=== PATIENT | female | born 1930 | race Hispanic/Latino ===

== ENCOUNTER 2017-01-24 21:53 | Inpatient (IN) | payer MEDICARE, OTHER ==
[2017-01-24 22:11] VITALS: BMI 27.4
--- NOTE | 2017-01-24 22:56 | ED PDOC ---
Arrival/HPI - General Chief Complaint: GI Problem Time Seen by Provider: 01/24/17 21:54 Historian: Patient - History of Present Illness Narrative History of Present Illness (Text): 01/24/17 22:51 Vania Mitchell is a 86 year old female, with a history of CAD, hypertension , TIA, cholecystectomy,pancreatectomy, hysterectomy, and appendectomy, presents to the emergency department complaining of constipation/abdominal discomfort for past few days. Patient states she also feels "backed up" with some occasional heartburn discomfort. States she has not taken her Colase for past few days. Denies fever, chills, headache, dizziness, chest pain, shortness of breath, nausea, vomiting, diarrhea, urinary symptoms, or any other complaints at this time. Time/Duration: < week Symptom Course: Unchanged Severity Level: Mild Activities at Onset: Light Past Medical History - Provider Review Nursing Documentation Reviewed: Yes - Infectious Disease Hx of Infectious Diseases: None - Tetanus Immunization Tetanus Immunization: Unknown - Cardiac Hx Cardiac Disorders: Yes Hx Hypertension: Yes Other/Comment: 1 Coronary stent - Pulmonary Hx Respiratory Disorders: No (SINUSITIS) - Neurological Hx Neurological Disorder: Yes Hx Transient Ischemic Attacks (TIA): Yes - HEENT Hx HEENT Disorder: Yes Hx Cataracts: Yes (WITH BILATERAL SURGERY) - Renal Hx Renal Disorder: Yes Hx Kidney Stones: Yes (RIGHT SIDE) - Endocrine/Metabolic Hx Endocrine Disorders: No - Hematological/Oncological Hx Blood Disorders: No - Integumentary Hx Dermatological Disorder: No - Musculoskeletal/Rheumatological Hx Musculoskeletal Disorders: Yes Hx Arthritis: Yes - Gastrointestinal Hx 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 Pancreatic tumor removal - Anesthesia Hx Anesthesia: Yes Hx Anesthesia Reactions: No Hx Malignant Hyperthermia: No - Suicidal Assessment Feels Threatened In Home Enviroment: No Family/Social History - Physician Review Nursing Documentation Reviewed: Yes Family/Social History: No Known Family HX Smoking Status: Former Smoker Hx Alcohol Use: No Hx Substance Use: No Hx Substance Use Treatment: No Allergies/Home Meds Allergies/Adverse Reactions: Allergies lactose Allergy (Verified 04/07/16 10:39) VOMITING Home Medications: Home Meds Medication Instructions Recorded Confirmed Aspirin [Ecotrin] 81 mg PO DAILY 01/24/17 01/25/17 Atorvastatin [Lipitor] 40 mg PO DAILY 01/24/17 01/25/17 Bismuth Subsalicylate [Peptic 262 mg PO PRN PRN 01/24/17 01/25/17 Relief] Clopidogrel [Plavix] 75 mg PO DAILY 01/24/17 01/25/17 Docusate Sodium/Sennosides A 1 tab PO PRN PRN 01/24/17 01/25/17 [Senokot S 50 MG-8.6 MG] Gabapentin [Neurontin] 1,200 mg PO HS 01/24/17 01/25/17 Levocetirizine Dihydrochloride 5 mg PO DAILY 01/24/17 01/25/17 [Xyzal] Losartan/Hydrochlorothiazide 1 tab PO DAILY 01/24/17 01/25/17 [Losartan Potassium-Hydrochlorothiazide 12.5 M] Metoprolol Tartrate 25 mg PO BID 01/24/17 01/25/17 Paroxetine HCl [Paroxetine] 40 mg PO DAILY 01/24/17 01/25/17 Simethicone [Mytab Gas] 80 mg PO PRN PRN 01/24/17 01/25/17 amLODIPine [Norvasc] 10 mg PO DAILY 01/24/17 01/25/17 Review of Systems - Physician Review All systems were reviewed & negative as marked: Yes - Review of Systems Constitutional: Normal. absent: Fatigue, Fevers Respiratory: Normal. absent: SOB, Cough Cardiovascular: Normal. absent: Chest Pain Gastrointestinal: Constipation. absent: Diarrhea, Nausea, Vomiting, Appetite Changes Genitourinary Female: Normal Neurological: Normal. absent: Headache, Dizziness Psychiatric: Normal Physical Exam Vital Signs Reviewed: Yes Vital Signs Temp Pulse Resp BP Pulse Ox 01/25/17 02:06 98.1 F 77 16 143/63 96 01/25/17 00:30 76 16 156/70 H 99 01/25/17 00:19 98.0 F 77 16 152/84 H 99 01/24/17 22:12 98.1 F 80 16 169/83 H 95 Temperature: Afebrile Blood Pressure: Hypertensive Pulse: Regular Respiratory Rate: Normal Appearance: Positive for: Well-Appearing, Non-Toxic, Comfortable Pain Distress: None Mental Status: Positive for: Alert and Oriented X 3 - Systems Exam Head: Present: Atraumatic, Normocephalic Pupils: Present: PERRL Extroacular Muscles: Present: EOMI Conjunctiva: Present: Normal Mouth: Present: Moist Mucous Membranes Cardiovascular: Present: Regular Rate and Rhythm, Normal S1, S2. No: Murmurs Abdomen: Present: Normal Bowel Sounds. No: Tenderness, Distention, Peritoneal Signs, Rebound, Guarding Upper Extremity: Present: Normal Inspection. No: Cyanosis, Edema Lower Extremity: Present: Normal Inspection. No: Edema Neurological: Present: GCS=15, CN II-XII Intact, Speech Normal Skin: Present: Warm, Dry, Normal Color. No: Rashes Psychiatric: Present: Alert, Oriented x 3, Normal Insight, Normal Concentration Medical Decision Making ED Course and Treatment: 01/24/17 22:58 Impression: A 86 year old female who presents to the emergency department complaining of constipation for past few days. Plan: -- EKG -- Labs, lipase -- Reassess and disposition Progress Notes: 01/24/17 23:37 EKG interpreted by me: NSR @ 89 bpm. Right bundle branch block. Left axis deviation. 01/25/17 02:49 CT abdomen pelvis results reviewed: IMPRESSION: suspicious for neoplasm versus inflammatory pathology of the cecum. No evidence of obstruction. Fluid content in normal caliber small bowel, focal wall thickening of the cecum. The appendix is not visualized with certainty. Clinical correlation, noting the presence of inflammatory changes of the cecum to proximal ascending colon. 5 cm cystic finding in the tail of the pancreas with some calcifications of the rim, noting that there is no evidence of acute pancreatitis at this time this could reflect sequelae of a previous episode of pancreatitis or alternatively a neoplasm. The absence of intravenous contrast greatly limits evaluation of the parenchymal organs. The paucity of oral contrast limits evaluation of the gastrointestinal tract. 01/25/17 03:19 Case discussed with who is aware and agrees with the plan to admit patient to Med/Surg for abdominal pain. Accepts patient under 's service with on GI consult. - Lab Interpretations Lab Results: 01/24/17 23:45 01/24/17 23:45 Lab Results 01/24/17 23:45: WBC 16.6 H D, RBC 4.47, Hgb 13.2, Hct 38.2, MCV 85.5, MCH 29.5, MCHC 34.6, RDW 13.9, Plt Count 261, MPV 9.9 01/24/17 23:45: Sodium 136, Potassium 3.6, Chloride 102, Carbon Dioxide 26, Anion Gap 12, BUN 16, Creatinine 0.5, Est GFR ( Amer) > 60, Est GFR (Non- Af Amer) > 60, Random Glucose 127 H, Calcium 9.5, Total Bilirubin 0.6, AST 44 H , ALT 31, Alkaline Phosphatase 104, Lactate Dehydrogenase 594, Total Creatine Kinase 54, Troponin I < 0.01, Total Protein 7.6, Albumin 4.3, Globulin 3.3, Albumin/Globulin Ratio 1.3, Lipase 112 I have reviewed the lab results: Yes - RAD Interpretation Narrative RAD Interpretations (Text): EXAM: CT Abdomen and Pelvis Without Intravenous Contrast FINDINGS: Lower thorax: Lung bases with changes of advanced centrilobular emphysema, no findings of acute infection. Heart. Calcifications in keeping with coronary artery disease, calcifications of the aortic valve leaflets. Air in the esophagus in keeping with reflux. Moderate hiatus hernia. ABDOMEN: Liver: Unremarkable. Gallbladder and bile ducts: Cholecystectomy clips. The common bile duct is poorly seen related to extensive artifacts from cholecystectomy clips. Pancreas: There is a cystic lesion associated with the pancreas, although there are no previous cross sectional studies available a report of a study of ultrasound of the abdomen December 2014 did not described a pancreatic lesion. The finding measures 5.4 cm, associated with the pancreatic tail, simple fluid attenuation. Calcification of the wall. This could reflect sequelae of pancreatitis and other including neoplasm not excluded. Consider dedicated evaluation. additional focal hypoattenuation series 2 image 60 suggested in the head of the pancreas, evaluation of the pancreatic duct is limited on this noncontrast study. Spleen: Unremarkable. No splenomegaly. Adrenals: Mild thickening medial limb right adrenal gland. Kidneys and ureters: Calcifications associated with the bilateral kidneys, noting that these are not absolutely defined regarding whether they are in the collecting system versus vascular. No hydronephrosis. Stomach and bowel: Oral contrast is seen in the rectum and sigmoid. There is no pathologic dilatation to suggest bowel obstruction. However, as seen for example coronal image 60, axial image 85, there is suspicion for some focal thickening of the cecum with adjacent inflammatory or other cause of stranding. Neoplasm versus inflammatory pathology are considerations. Noted that there is an air-fluid level and some dependent high attenuation possibly oral contrast in this area. The bowel otherwise is of note for minimally increased fluid content in normal caliber small bowel. There are no findings of acute diverticulitis. No abdominal wall hernias containing bowel, multiple fat containing hernias. Appendix: The appendix is not visualized with certainty. PELVIS: Bladder: Bladder is partly collapsed limiting evaluation. No stones. Reproductive: Uterus is not visualized in keeping with hysterectomy. ABDOMEN and PELVIS: Intraperitoneal space: No free air. No significant fluid collection. Bones/joints: Severe diffuse osteopenia and degenerative spine changes. Status post internal fixation left femur. Incidentally noted sacralization of vertebra L5. No acute fracture. No dislocation. Soft tissues: Areas of fat necrosis in the anterior abdominal wall.No abdominal wall hernias containing bowel, multiple fat containing hernias. Vasculature: Extensive atherosclerotic calcifications. No abdominal aortic aneurysm. Lymph nodes: Unremarkable. No enlarged lymph nodes. IMPRESSION: suspicious for neoplasm versus inflammatory pathology of the cecum. No evidence of obstruction. Fluid content in normal caliber small bowel, focal wall thickening of the cecum. The appendix is not visualized with certainty. Clinical correlation, noting the presence of inflammatory changes of the cecum to proximal ascending colon. 5 cm cystic finding in the tail of the pancreas with some calcifications of the rim, noting that there is no evidence of acute pancreatitis at this time this could reflect sequelae of a previous episode of pancreatitis or alternatively a neoplasm. The absence of intravenous contrast greatly limits evaluation of the parenchymal organs. The paucity of oral contrast limits evaluation of the gastrointestinal tract. Radiology Orders: 01/25/17 00:51 ABD & PELVIS W/O PO OR IV CONT [CT] Stat Screw Down: Radiologist - Medication Orders Current Medication Orders: Metronidazole (Flagyl) 500 mg in 100 mls @ 100 mls/hr IVPB STAT STA PRN Reason: Protocol Stop: 01/25/17 03:34 Discontinued Medications Ceftriaxone Sodium (Rocephin 1 Gram Ivpb) 1 gm in 100 mls @ 200 mls/hr IV ONCE STA PRN Reason: Protocol Stop: 01/25/17 03:02 Last Admin: 01/25/17 03:17 Dose: 200 mls/hr Magnesium Citrate (Citrate Of Mag) 300 ml PO ONCE ONE Stop: 01/24/17 23:04 Last Admin: 01/24/17 23:55 Dose: 300 ml Ondansetron HCl (Zofran Inj) 4 mg IVP ONCE ONE Stop: 01/25/17 02:37 Last Admin: 01/25/17 03:17 Dose: 4 mg Polyethylene Glycol (Miralax) 17 gm PO STAT STA Stop: 01/24/17 23:04 Last Admin: 01/25/17 01:31 Dose: Not Given Non-Admin Reason: Patient Refused - Scribe Statement The provider has reviewed the documentation as recorded by the Katia Bellamy Provider Attestation: All medical record entries made by the Katia were at my direction and personally dictated by me. I have reviewed the chart and agree that the record accurately reflects my personal performance of the history, physical exam, medical decision making, and the department course for this patient. I have also personally directed, reviewed, and agree with the discharge instructions and disposition. Disposition/Present on Arrival - Present on Arrival Any Indicators Present on Arrival: No History of DVT/PE: No History of Uncontrolled Diabetes: No Urinary Catheter: No History of Decub. Ulcer: No History Surgical Site Infection Following: None - Disposition Have Diagnosis and Disposition been Completed?: Yes Diagnosis: Abdominal pain, Leukocytosis Disposition: HOSPITALIZED Disposition Time: 03:18 Patient Plan: Admission Patient Problems: Current Active Problems Problem Status Onset Abdominal pain Acute Leukocytosis Acute Condition: STABLE
[2017-01-24] MEDS ORDERED: Magnesium Citrate Oral SOL (300 ml) PO ONE (23:03)
[2017-01-24 23:55] LABS: HEMATOCRIT 38.2 % (36.0-48.0); MEAN CELL VOLUME 85.5 fL (80.0-105.0); MEAN CORPUSCULAR HEMOGLOBIN 29.5 pg (25.0-35.0); MEAN CORPUSCULAR HGB CONC 34.6 g/dl (31.0-37.0); MEAN PLATELET VOLUME 9.9 fl (7.0-11.0); RED CELL DISTRIBUTION WIDTH 13.9 % (11.5-14.5); WHITE BLOOD COUNT 16.6 10^3/ul (4.5-11.0)
[2017-01-24] MEDS: POLYETHYLENE GLYCOL 3350 17 GM/Dose PACKET PO STA (23:56)
[2017-01-25 00:40] LABS: ALB/GLOB RATIO 1.3 (1.1-1.8); ALKALINE PHOSPHATASE 104 U/L (38-133); ALT/SGPT 31 U/L (7-56); AST/SGOT 44 U/L (15-39); BILIRUBIN,TOTAL 0.6 mg/dL (0.2-1.3); BLOOD UREA NITROGEN 16 mg/dL (7-21); CALCIUM 9.5 mg/dL (8.4-10.5); CARBON DIOXIDE 26 mmol/L (21-33); CHLORIDE 102 mmol/L (98-107); GFR AFRICAN-AMERICAN > 60; GLUCOSE,RANDOM 127 mg/dL (70-110); LIPASE 112 U/L (23-300); POTASSIUM 3.6 mmol/L (3.6-5.0); SODIUM 136 mmol/L (132-148); TOTAL PROTEIN 7.6 g/dL (5.8-8.3)
[2017-01-25 00:52] LABS: TROPONIN I < 0.01 ng/mL
[2017-01-25] MEDS: POLYETHYLENE GLYCOL 3350 17 GM/Dose PACKET PO STA (01:31)
--- NOTE | 2017-01-25 02:22 | CT ---
EXAM: CT Abdomen and Pelvis Without Intravenous Contrast CLINICAL HISTORY: 86 years old, female; Pain; Abdominal pain; Generalized TECHNIQUE: Axial computed tomography images of the abdomen and pelvis without intravenous contrast. This CT exam was performed using one or more of the following dose reduction techniques: automated exposure control, adjustment of the mA and/or kV according to patient size, and/or use of iterative reconstruction technique. Coronal and sagittal reformatted images were created and reviewed. EXAM DATE/TIME: Exam ordered 01/25/2017 12:51 AM COMPARISON: CR - HIP W/WO PELVIS 2-3 VIEWS LT 04/07/2016 11:58:07 AM FINDINGS: Lower thorax: Lung bases with changes of advanced centrilobular emphysema, no findings of acute infection. Heart. Calcifications in keeping with coronary artery disease, calcifications of the aortic valve leaflets. Air in the esophagus in keeping with reflux. Moderate hiatus hernia. ABDOMEN: Liver: Unremarkable. Gallbladder and bile ducts: Cholecystectomy clips. The common bile duct is poorly seen related to extensive artifacts from cholecystectomy clips. Pancreas: There is a cystic lesion associated with the pancreas, although there are no previous cross sectional studies available a report of a study of ultrasound of the abdomen December 2014 did not described a pancreatic lesion. The finding measures 5.4 cm, associated with the pancreatic tail, simple fluid attenuation. Calcification of the wall. This could reflect sequelae of pancreatitis and other including neoplasm not excluded. Consider dedicated evaluation. additional focal hypoattenuation series 2 image 60 suggested in the head of the pancreas, evaluation of the pancreatic duct is limited on this noncontrast study. Spleen: Unremarkable. No splenomegaly. Adrenals: Mild thickening medial limb right adrenal gland. Kidneys and ureters: Calcifications associated with the bilateral kidneys, noting that these are not absolutely defined regarding whether they are in the collecting system versus vascular. No hydronephrosis. Stomach and bowel: Oral contrast is seen in the rectum and sigmoid. There is no pathologic dilatation to suggest bowel obstruction. However, as seen for example coronal image 60, axial image 85, there is suspicion for some focal thickening of the cecum with adjacent inflammatory or other cause of stranding. Neoplasm versus inflammatory pathology are considerations. Noted that there is an air-fluid level and some dependent high attenuation possibly oral contrast in this area. The bowel otherwise is of note for minimally increased fluid content in normal caliber small bowel. There are no findings of acute diverticulitis. No abdominal wall hernias containing bowel, multiple fat containing hernias. Appendix: The appendix is not visualized with certainty. PELVIS: Bladder: Bladder is partly collapsed limiting evaluation. No stones. Reproductive: Uterus is not visualized in keeping with hysterectomy. ABDOMEN and PELVIS: Intraperitoneal space: No free air. No significant fluid collection. Bones/joints: Severe diffuse osteopenia and degenerative spine changes. Status post internal fixation left femur. Incidentally noted sacralization of vertebra L5. No acute fracture. No dislocation. Soft tissues: Areas of fat necrosis in the anterior abdominal wall.No abdominal wall hernias containing bowel, multiple fat containing hernias. Vasculature: Extensive atherosclerotic calcifications. No abdominal aortic aneurysm. Lymph nodes: Unremarkable. No enlarged lymph nodes. IMPRESSION: suspicious for neoplasm versus inflammatory pathology of the cecum. No evidence of obstruction. Fluid content in normal caliber small bowel, focal wall thickening of the cecum. The appendix is not visualized with certainty. Clinical correlation, noting the presence of inflammatory changes of the cecum to proximal ascending colon. 5 cm cystic finding in the tail of the pancreas with some calcifications of the rim, noting that there is no evidence of acute pancreatitis at this time this could reflect sequelae of a previous episode of pancreatitis or alternatively a neoplasm. The absence of intravenous contrast greatly limits evaluation of the parenchymal organs. The paucity of oral contrast limits evaluation of the gastrointestinal tract.
[2017-01-25] MEDS: cefTRIAXone 1 gm 1 GM/100 ML BAG IV STA ×2 (03:17→04:00)
[2017-01-25] MEDS ORDERED: Sodium Chloride 0.9% 1,000 ML IV STA (03:29)
[2017-01-25] MEDS: metroNIDAZOLE IV 500 mg/100 ml 500 MG/100 ML BAG IVPB STA ×2 (03:59→04:31)
[2017-01-25] MEDS ORDERED: cefTRIAXone 1 gm 1 GM/100 ML BAG IVPB SCH (10:00)
[2017-01-25] MEDS: Cefepime IV 2 gm in NS 2 GM/100 ML BAG IVPB SCH ×3 (10:14→23:09)
--- NOTE | 2017-01-25 10:49 | HP ---
CHIEF COMPLAINT: Abdominal pain and constipation for 2 days. HISTORY OF PRESENT ILLNESS: An 86-year-old female with past medical history of coronary artery disease, hypertension, history of pancreatic neuroendocrine tumor, admitted with complaints of nonspecific abdominal pain, feeling of bloating and constipation for 2 days. She denied any nausea, vomiting at home. She denied any fever, dysuria, flank pain. The patient was evaluated in the Emergency Room and vomited after oral contrast. 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 History of osteoporosis, history of fall, fracture of the left hip. PAST SURGICAL HISTORY: Status post resection of the neuroendocrine tumor in the pancreatic tail in 07/2014. Status post ORIF of left hip 2014, status post cardiac catheterization with stent in LAD 2012. CURRENT MEDICATIONS: Paroxetine 40 mg daily, metoprolol 25 mg twice a day, losartan/hydrochlorothiazide 50/12.5 daily, Colace 1 tablet as needed, amlodipine 10 mg daily, Plavix 75 mg daily and Lipitor 40 mg daily and aspirin once a day. ALLERGIES: THE PATIENT HAS ALLERGY TO LACTOSE with episodes of vomiting, but no known allergies to medication. FAMILY HISTORY: No history of abdominal cancer. SOCIAL HISTORY: The patient has history of smoking. She quit 50 years ago. Denies any alcohol or drug use. The patient is retired. She lives with her nephew. She is ambulatory and independent of activity of daily living at present time. REVIEW OF SYSTEMS: She denies any loss of appetite, weight loss, fever. She denies any sore throat, dysphagia. She denies any recurrent abdominal pain, but she complains of some heartburn. The patient denies any nausea, vomiting. She has chronic constipation. The patient denies any chest pain, palpitation, shortness of breath, cough. The patient denies any flank pain, dysuria, or hematuria. She complains of chronic joint pains, mostly low back and hip and knee pain. She has history of depression and anxiety, but denies any suicidal thoughts or insomnia. PHYSICAL EXAMINATION: VITAL SIGNS: Stable. Temperature 98.1, pulse 77 and regular, blood pressure 143/63, respiratory rate 16, oxygen saturation 96% on room air. GENERAL: She is comfortable in bed, alert, awake, oriented 3 times. HEENT: Head is normocephalic, atraumatic. Oral mucosa is moist. NECK: Supple. LUNGS: Clear to auscultation. HEART: With regular rhythm and rate. ABDOMEN: Soft. There is no localized tenderness on palpation. No rebound, no muscle guarding. Bowel sounds are positive. There are palpable scars in the mid and left upper abdomen. EXTREMITIES: With no edema, cyanosis or clubbing. DIAGNOSTIC TESTS: Leukocytosis with WBC 16.6, hemoglobin 13.2 and hematocrit 38.2, platelet count 261,000. Chemistry with normal electrolytes, normal renal function. Her random glucose was 127. Liver enzymes stable with borderline elevated AST and normal pancreatic enzymes. Troponin level was negative. CT scan of the abdomen and pelvis was significant for thickening of the cecum area suspicious for inflammatory versus neoplasmatic changes. No obstruction. There is also 5 cm cystic lesion in the tail of pancreas. ASSESSMENT: 1. An 86-year-old female with history of pancreatic neuroendocrine tumor removed in 2013, admitted for nonspecific abdominal pain and constipation with abnormal findings on CT of the abdomen localized in cecum area. Must rule out colitis, must rule out malignancy 2. Hypertension. 3. Coronary artery disease. PLAN OF TREATMENT: We will keep patient n.p.o. Continue with IV fluids for now. GI evaluation. We will resume her chronic oral medications for now. Continue metronidazole and Rocephin at present time. Magali Beckham MD cc: [id number] TT: 01/25/2017 10:48:50 tn MTDD
--- NOTE | 2017-01-25 12:42 | CARD ---
APPROVED REPORT EKG Measurement Heart [id number] HI [id number] <Conclusion> Normal sinus rhythm Left axis deviation Right bundle branch block Abnormal ECG
--- NOTE | 2017-01-25 14:30 | CON ---
DATE: 01/25/2017 Seen and examined at the bedside earlier today. REQUEST FOR CONSULT: Abdominal pain, leukocytosis. 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 Did not have a bowel movement x 2 days. The patient is also complaining of hear tburn. Denies any history of NSAID use. Occasionally may take Tums. Was given magnesium citrate in the Emergency Room and has had multiple formed BMs. Did not notice any blood. The patient denies a ny nausea, no vomiting. No complaints of any bleeding per rectum. Denies any weight loss, loss of a ppetite, shortness of breath or chest pain. No complaints of any fever or chills. Her last colonosc opy was in 12/2012, found to have hyperplastic sigmoid polyp. Her last endoscopy was in 05/2014, found to have prepyloric erosions. Gastric biopsies showed intestinal metaplasia, but negative for H. pyl karissa. She did have a CAT scan on admission which was reporting a cystic lesion in the pancreas and a suspicious neoplasm versus inflammatory process in the cecum and also found to have a 5 cm cystic fin ding in the tail of the pancreas with calcification. No evidence of acute pancreatitis. PAST MEDICAL HISTORY: As stated above. Neuroendocrine tumor of the pancreatic tail, coronary artery disease, hyperplastic colon polyp, prepyloric ulcer, hypertension, osteoporosis, hyperlipidemia. PAST SURGICAL HISTORY: She had resection of neuroendocrine tumor on the pancreatic tail, ORIF of lef t hip, cardiac catheterization with stent, last colonoscopy was in 2012, found to have colon polyp. Last endoscopy was 05/2013, prepyloric erosions. Gastric biopsy was positive for intestinal metaplasi a, cholecystectomy. ALLERGIES: LACTOSE. FAMILY HISTORY: Noncontributory at this time. SOCIAL HISTORY: The patient used to smoke in the past. Denies ETOH or alcohol use. MEDICATIONS: Reviewed as per MAR. REVIEW OF SYSTEMS: Systems reviewed with positive findings, see HPI. DIAGNOSTICS: CT scan of abdomen and pelvis is suspicious for neoplasm versus inflammatory pathology in the cecum. No evidence of obstruction. The fluid content normal in caliber, small bowel, focal w all thickening of the cecum. There is a 5 cm cystic finding in the tail of the pancreas with some ca lcifications of rim, noting that there is no evidence of acute pancreatitis at this time. This could reflect sequela of a previous episode of pancreatitis or alternatively a neoplasm. The absence of I V contrast greatly limits evaluation of the parenchymal organs, capacity of the oral contrast limits evaluation of the GI tract. No abdominal hernia. Lymph nodes, no enlarged lymph nodes. Liver unrem arkable. VITAL SIGNS: Temperature 98.7, blood pressure 147/75, pulse rate 80, respirations 18, 95 on nasal ca nnula. LABORATORY DATA: WBC is 16.6, H and H is 13.2 and 38.2, platelets are 261. Chem: Sodium 136, K is 3 .6, BUN 16, creatinine 0.5, total bilirubin is 0.6, AST 44, ALT 31, alkaline phosphatase is 104. LDH 594. Troponin is negative x 1. PHYSICAL EXAMINATION: HEENT: Sclerae are anicteric. NECK: Supple. CARDIAC: S1, S2. LUNGS: Decreased breath sounds. Positive air entry. No rales or wheeze. ABDOMEN: With bowel sounds, soft with positive tenderness to left to right quadrant. No rebound or guarding, and there is a palpable mobile mass noted in mid abdomen near umbilical area. The patient states that that has been there for a year or two and that it has been evaluated and was reported to be benign. EXTREMITIES: No edema. NEUROLOGIC: Awake, alert, and oriented. ASSESSMENT: This is an 86-year-old female with a history of neuroendocrine pancreatic tumor status p ost resection, admitted with complaints of abdominal pain as well as constipation. The patient had C T scan with abnormal findings, reporting either neoplasm or inflammatory process in this area. There is also a 5 cm cystic lesion noted in the tail of the pancreas. Rule out malignancy, rule out colit is. History of colon polyps, heartburn, hypertension, history of coronary artery disease, status pos t cardiac stent. PLAN: We will start on clear liquid diet for now to see if the patient can tolerate this. The patie nt also has leukocytosis. She has been started on IV antibiotics. She is on Flagyl and ceftriaxone as well as cefepime. She is also complaining of heartburn. She is already on Protonix 40 IV daily. The patient reportedly has had multiple bowel movements. We will review CT scan with radiology. De pending if this is a neoplasm or inflammatory process, the patient may benefit from colonoscopic eval uation and perhaps an upper endoscopy. The patient has been complaining of increased heartburn. We will follow the patient with you. The patient is being seen by ID. Thank you for this consult and for allowing us to participate in your patient's care. We will make ce an recommendations based upon patient's clinical course. The patient was seen and case discussed with Dr. Guerrier. Rosanne MICHAEL cc: [id number] TT: 01/25/2017 14:30:17 Confirmation # [id number] Dictation # [id number] pattie
--- NOTE | 2017-01-25 14:57 | CP.PCM.CON ---
History of Present Illness - History of Present Illness History of Present Illness: 86 year old female with PMH of HTN, CAD, history of TIA, S/P cholecystectomy, S/ P 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, S/P hyesterectomy, S/P appendectomy, history of depression and anxiety, breast CA S/P left lumpectomy, bilateral cataract surgery came in to [facility] complaining of constipation and lower abdominal pain for the past 3-4 days, associated with nausea and heartburn. She denies fever or chills, no vomiting, no chest pain, no SOB, no cough or colds, no headache or dizziness, no diarrhea, no dysuria or hematuria. In the ED, CT abdomen and pelvis was done which showed cecal inflammation. Infectious Diseases consult is requested to further evaluate and manage. Review of Systems - Review of Systems All systems: reviewed and no additional remarkable complaints except (as per HPI ) Past Patient History - Infectious Disease Hx of Infectious Diseases: None - Tetanus Immunizations Tetanus Immunization: Unknown - Past Medical History & Family History Past Medical History?: Yes - Past Social History Smoking Status: Former Smoker - CARDIAC Hx Cardiac Disorders: Yes Hx Hypertension: Yes Other/Comment: 1 Coronary stent - PULMONARY Hx Respiratory Disorders: No (SINUSITIS) - NEUROLOGICAL Hx Neurological Disorder: Yes Hx Transient Ischemic Attacks (TIA): Yes - HEENT Hx HEENT Problems: Yes Hx Cataracts: Yes (WITH BILATERAL SURGERY) - RENAL Hx Chronic Kidney Disease: Yes Hx Kidney Stones: Yes (RIGHT SIDE) - ENDOCRINE/METABOLIC Hx Endocrine Disorders: No - HEMATOLOGICAL/ONCOLOGICAL Hx Blood Disorders: No - INTEGUMENTARY Hx Dermatological Problems: No - MUSCULOSKELETAL/RHEUMATOLOGICAL Hx Musculoskeletal Disorders: Yes Hx Arthritis: Yes Hx Falls: Yes - GASTROINTESTINAL Hx 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) - GENITOURINARY/GYNECOLOGICAL Hx Genitourinary Disorders: Yes (incontinent at times post op, starting to use bathroom with assist) - PSYCHIATRIC Hx Psychophysiologic Disorder: Yes Hx Anxiety: Yes Hx Depression: Yes Hx Substance Use: No - SURGICAL HISTORY Hx Hysterectomy: Yes Hx Orthopedic Surgery: Yes Other/Comment: Left breast lumpectomy. Pancreatic tumor removal - ANESTHESIA Hx Anesthesia: Yes Hx Anesthesia Reactions: No Hx Malignant Hyperthermia: No Meds Allergies/Adverse Reactions: Allergies Allergy/AdvReac Type Severity Reaction Status Date / Time lactose Allergy VOMITING Verified 04/07/16 10:39 - Medications Medications: Current Medications Sodium Chloride (Sodium Chloride 0.9%) 1,000 mls @ 100 mls/hr IV .Q10H STA Stop: 01/25/17 13:28 Metronidazole (Flagyl) 500 mg in 100 mls @ 100 mls/hr IVPB Q8 [facility] PRN Reason: Protocol Losartan Potassium (Cozaar) 50 mg PO DAILY [facility] Metoprolol Tartrate (Lopressor) 25 mg PO BID [facility] Physical Exam - Constitutional Appears: Non-toxic, No Acute Distress - Head Exam Head Exam: NORMAL INSPECTION - Neck Exam Neck exam: Negative for: Lymphadenopathy, Meningismus - Respiratory Exam Respiratory Exam: Decreased Breath Sounds - Cardiovascular Exam Cardiovascular Exam: +S1, +S2 - GI/Abdominal Exam GI & Abdominal Exam: Soft, Tenderness (mild, lower quadrants). absent: Distended, Firm, Guarding, Rebound, Rigid Results - Vital Signs Recent Vital Signs: Last Vital Signs Temp 98.7 F 01/25/17 07:30 Pulse 80 01/25/17 07:30 Resp 18 01/25/17 07:30 BP 147/75 01/25/17 07:30 Pulse Ox 95 01/25/17 07:30 - Labs Result Diagrams: 01/24/17 23:45 01/24/17 23:45 Assessment & Plan - Assessment and Plan (Free Text) Plan: Assessment Consider sepsis due to cecal colitis R/O malignancy HTN CAD history of TIA S/P cholecystectomy S/P 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 S/P hysterectomy S/P appendectomy history of depression and anxiety breast CA S/P left lumpectomy bilateral cataract surgery Plan Started patient on Cefepime and Flagyl pending blood cx; follow up GI evaluation and plans
[2017-01-25] MEDS: metroNIDAZOLE IV 500 mg/100 ml 500 MG/100 ML BAG IVPB SCH ×2 (15:13→23:08)
[2017-01-26] MEDS: metroNIDAZOLE IV 500 mg/100 ml 500 MG/100 ML BAG IVPB SCH ×3 (06:56→22:49)
[2017-01-26 07:23] LABS: ALB/GLOB RATIO 1.2 (1.1-1.8); ALKALINE PHOSPHATASE 89 U/L (38-133); ALT/SGPT 28 U/L (7-56); AST/SGOT 38 U/L (15-39); BILIRUBIN,TOTAL 0.9 mg/dL (0.2-1.3); BLOOD UREA NITROGEN 12 mg/dL (7-21); CALCIUM 8.6 mg/dL (8.4-10.5); CARBON DIOXIDE 29 mmol/L (21-33); CHLORIDE 105 mmol/L (98-107); GFR AFRICAN-AMERICAN > 60; GLUCOSE,RANDOM 102 mg/dL (70-110); POTASSIUM 3.6 mmol/L (3.6-5.0); SODIUM 139 mmol/L (132-148); TOTAL PROTEIN 6.4 g/dL (5.8-8.3)
[2017-01-26 07:38] LABS: HEMATOCRIT 35.4 % (36.0-48.0); MEAN CELL VOLUME 88.7 fL (80.0-105.0); MEAN CORPUSCULAR HEMOGLOBIN 29.6 pg (25.0-35.0); MEAN CORPUSCULAR HGB CONC 33.3 g/dl (31.0-37.0); MEAN PLATELET VOLUME 10.7 fl (7.0-11.0); RED CELL DISTRIBUTION WIDTH 14.5 % (11.5-14.5); WHITE BLOOD COUNT 14.4 10^3/ul (4.5-11.0)
[2017-01-26] MEDS: Cefepime IV 2 gm in NS 2 GM/100 ML BAG IVPB SCH ×2 (07:55→16:27)
[2017-01-26] MEDS ORDERED: Gadodiamide 287 MG/ML VIAL (15ML) IV ONE (09:02)
--- NOTE | 2017-01-26 10:00 | CON ---
DATE: 01/25/2017 This patient was seen and evaluated earlier today. This 86-year-old patient is admitted with abdominal discomfort and constipation. CT scan was done in the ER which showed a pancreatic distal body, in the region of the tail, there was a cystic lesion measuring about 5 cm. There was also focal thickening of the cecal area noticed. PHYSICAL EXAMINATION: The patient not in acute distress. No significant tenderness noticed. Mild discomfort on deep palpation of the epigastric and right upper quadrant area; otherwise unremarkable. The patient did have a CAT scan done. The patient had a neuroendocrine tumor resected from the tail of the pancreas in 2013. The patient did have a colonoscopy in 2012. Presently on cefepime and Flagyl. On clear liquid diet. The CT scan was reviewed. The likely cause of this lesion in the pancreatic region could be cystic lesion, could be a fluid collection with a peripheral calcification. The reasonable thing is to do an MRI with contrast to further evaluate. Discussed with the patient at length who agrees. The patient is scheduled for procedure. They will continue the empiric antibiotic therapy and consider elective colonoscopic evaluation. Thank you very much for allowing us to participate in the care of the patient. Stefani Guerrier MD cc: [id number] TT: 01/26/2017 09:59:34 Confirmation # [id number] Dictation # [id number] marcela MARIE
--- NOTE | 2017-01-26 10:39 | PN ---
DATE: 01/26/2017 Seen and examined at the bedside this morning. Denies any episodes of diarrhea. No recent bowel mov ement since yesterday. No complaints of nausea, vomiting or abdominal pain. So far, tolerating the liquid diet. She is pending to go for MRCP today. No acute overnight events. VITAL SIGNS: Temperature 98.6, blood pressure 140/65, pulse 66, respirations 18, 96% on room air. LABORATORIES: WBC is 14.4. This is better. H and H is 11.8 and 35.4. Her sodium 139, K 3.6, BUN 1 2, creatinine is 0.6. Total bilirubin is 0.9, AST 38, ALT 28, alk phos is 89. PHYSICAL EXAMINATION: HEENT: Sclera is anicteric. NECK: Supple. CARDIAC: S1, S2. LUNG SOUNDS: Clear. ABDOMEN: With bowel sounds, soft. No tenderness on palpation. No rebound or guarding. ASSESSMENT: Improving abdominal pain, history of neuroendocrine pancreatic tumor, status post resect ion. The patient status post CT scan with abnormal findings, neoplasm versus inflammatory process in cecum. Also noted to have a 5 cm cystic lesion in the tail of the pancreas. History of colon polyp s, gastroesophageal reflux disease, coronary artery disease, status post cardiac stent, hypertension. PLAN: The patient is going for MRCP this morning. Follow up the results. She is on cefepime, Flagy l. Continue PPI. As per ID. The patient was seen and case discussed with Dr. Guerrier. Rosanne MICHAEL cc: [id number] TT: 01/26/2017 10:38:22 Confirmation # [id number] Dictation # [id number] en
--- NOTE | 2017-01-26 14:33 | MRI ---
MRI abdomen without/with IV contrast MRCP Indication: Pancreatic cystic lesion versus postop collection Technique: Multiplanar, multi sequence magnetic resonance images of the abdomen were obtained without and with the administration of intravenous gadolinium using a multi phase abdomen protocol. Rotating maximum intensity projection images of the biliary system were generated. A total of 1156 images submitted for review Comparison: CT abdomen and pelvis without contrast performed 01/25/17 Findings: Hepatic steatosis. Cholecystectomy. There is no intrahepatic biliary ductal dilatation. Dilated common bile duct measures approximately 13 mm in diameter. Fairly abrupt distal taper of the common bile duct. The pancreatic duct appears within normal limits of caliber. No filling defects are seen in the common bile duct or pancreatic duct. 4.8 cm (cc dimension) by 4.6 cm (transverse dimension) nonenhancing cystic appearing lesion at the level of the pancreatic tail. The spleen and adrenal glands appear unremarkable. The kidneys enhance symmetrically. No hydronephrosis or obstructing calculus identified. No enlarged abdominal lymph nodes are appreciated. Limited views of the inferior thorax appear unremarkable. Impression: Dilated common bile duct with fairly abrupt distal taper; stricture or distal neoplasm must be excluded. Large cystic lesion at the level of the pancreatic tail without evidence of solid component or postcontrast enhancement. Differential diagnosis includes cystic neoplasm versus sequela of prior pancreatitis (dilated side duct radicles or tiny pseudocyst). Hepatic steatosis. Cholecystectomy.
--- NOTE | 2017-01-26 17:03 | PN ---
DATE: 01/26/2017 The patient is feeling better today. She denies any abdominal pain, denies any nausea or vomiting. She is tolerating clear liquids. PHYSICAL EXAMINATION: VITAL SIGNS: Stable. The patient is afebrile. Temperature 98.6, pulse 66, blood pressure 140/65 and respiratory rate 18. GENERAL: The patient is comfortable in bed, alert, awake, oriented. HEENT: Head is normocephalic, atraumatic. Oral mucosa is moist. NECK: Supple. LUNGS: Clear to auscultation. HEART: With regular rhythm. ABDOMEN: Soft. No abdominal tenderness. No muscle guarding. Bowel sounds are positive. EXTREMITIES: With no edema. DIAGNOSTIC TESTS: CBC with WBC 14,000, improved since yesterday, hemoglobin 11.8, hematocrit 35.4. Chemistry with normal electrolytes, normal renal function. Procalcitonin is negative. The patient had MRCP done this morning; the official results are still pending. Her cultures are negative. ASSESSMENT: 1. 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 2. Pancreatic tail lesion, most probably cyst. 3. Hypertension. 4. Coronary artery disease. PLAN OF TREATMENT: Will continue IV antibiotics, Flagyl and Zosyn. Continue clear liquid diet. Will advance diet if the patient is stable. Follow up MRCP. Magali Beckham MD cc: [id number] TT: 01/26/2017 17:03:01 Confirmation # [id number] Dictation # [id number] marcela MARIE
--- NOTE | 2017-01-26 18:12 | CP.PCM.PN ---
Subjective - Date & Time of Evaluation Date of Evaluation: 01/26/17 Time of Evaluation: 11:40 - Subjective Subjective: Less abdominal pain, no nausea or vomiting, no diarrhea, no fevers overnight. Objective - Vital Signs/Intake and Output Vital Signs (last 24 hours): Temp Pulse Resp BP Pulse Ox 98.6 F 66 18 140/65 96 01/26/17 07:30 01/26/17 07:30 01/26/17 07:30 01/26/17 07:30 01/26/17 07:30 Intake and Output: 01/26/17 01/26/17 06:59 18:59 Intake Total 780 Balance 780 - Medications Medications: Current Medications Amlodipine Besylate (Norvasc) 5 mg PO DAILY [facility] Last Admin: 01/25/17 10:11 Dose: 5 mg Metronidazole (Flagyl) 500 mg in 100 mls @ 100 mls/hr IVPB Q8 [facility] PRN Reason: Protocol Last Admin: 01/26/17 06:56 Dose: 100 mls/hr Cefepime HCl (Maxipime 2gm) 2 gm in 100 mls @ 100 mls/hr IVPB Q8 [facility] PRN Reason: Protocol Stop: 01/30/17 09:31 Last Admin: 01/25/17 23:09 Dose: 100 mls/hr Losartan Potassium (Cozaar) 50 mg PO DAILY [facility] Last Admin: 01/25/17 10:11 Dose: 50 mg Metoprolol Tartrate (Lopressor) 25 mg PO BID [facility] Last Admin: 01/25/17 17:18 Dose: 25 mg Pantoprazole Sodium (Protonix Inj) 40 mg IVP DAILY [facility] Last Admin: 01/25/17 10:13 Dose: 40 mg Paroxetine HCl (Paxil) 40 mg PO DAILY [facility] Last Admin: 01/25/17 10:11 Dose: 40 mg - Labs Labs: 01/26/17 06:30 01/26/17 06:30 - Constitutional Appears: Non-toxic, No Acute Distress - Head Exam Head Exam: NORMAL INSPECTION - ENT Exam ENT Exam: Mucous Membranes Moist - Neck Exam Neck Exam: absent: Lymphadenopathy, Meningismus - Respiratory Exam Respiratory Exam: Decreased Breath Sounds - Cardiovascular Exam Cardiovascular Exam: +S1, +S2 - GI/Abdominal Exam GI & Abdominal Exam: Soft. absent: Tenderness Assessment and Plan - Assessment and Plan (Free Text) Plan: Assessment Consider sepsis due to cecal colitis R/O malignancy HTN CAD history of TIA S/P cholecystectomy S/P 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 S/P hysterectomy S/P appendectomy history of depression and anxiety breast CA S/P left lumpectomy bilateral cataract surgery Plan continue Cefepime and Flagyl day 2; blood cx are negative; follow up MRCP results will monitor clinically
--- NOTE | 2017-01-27 00:56 | PN ---
DATE: 01/26/2017 ADDENDUM: SUBJECTIVE: This patient was seen and evaluated earlier. This is an addendum to the GI progress rep ort dictated by Rosanne Sinclair APN. The patient is feeling better. Abdominal discomfort has improved. The patient had an MRCP done today. This was reviewed the patient was found to have some abrupt term ination of the pancreatic duct noticed. However, there is no mass noticed. The patient did bui ve these pancreatic ductal abnormalities many years ago, known to have had extensive workup done in t he past. The patient also has a cystic lesion in the pancreatic tail area where the resection was do ne. The likely cause to be considered is postoperative fluid collection versus pancreatic cystic les ion. The reasonable thing to consider for the patient is to do an endoscopic ultrasound examination. Since the patient has been clinically feeling better, this can be even performed as an outpatient. The patient will need to complete the antibiotic first for her colitis. She would benefit from the elective colonoscopic evaluation. We will discuss with Dr. Rodriguez in a.m. regarding this. The pat ient was on Plavix. The last dose was on 01/25, 2 days ago. Thank you very much for allowing us to participate in the care of the patient. Stefani Guerrier MD cc: [id number] TT: 01/27/2017 00:55:38 Confirmation # [id number] Dictation # [id number] mn
[2017-01-27] MEDS: metroNIDAZOLE IV 500 mg/100 ml 500 MG/100 ML BAG IVPB SCH ×3 (05:30→21:26)
[2017-01-27] MEDS: Cefepime IV 2 gm in NS 2 GM/100 ML BAG IVPB SCH ×3 (05:41→22:53)
[2017-01-27 07:22] LABS: HEMATOCRIT 33.2 % (36.0-48.0); MEAN CELL VOLUME 88.8 fL (80.0-105.0); MEAN CORPUSCULAR HEMOGLOBIN 29.1 pg (25.0-35.0); MEAN CORPUSCULAR HGB CONC 32.8 g/dl (31.0-37.0); MEAN PLATELET VOLUME 10.2 fl (7.0-11.0); RED CELL DISTRIBUTION WIDTH 14.5 % (11.5-14.5); WHITE BLOOD COUNT 12.5 10^3/ul (4.5-11.0)
[2017-01-27 08:00] LABS: ALB/GLOB RATIO 1.1 (1.1-1.8); ALKALINE PHOSPHATASE 87 U/L (38-133); ALT/SGPT 33 U/L (7-56); AST/SGOT 28 U/L (15-39); BILIRUBIN,TOTAL 0.6 mg/dL (0.2-1.3); BLOOD UREA NITROGEN 9 mg/dL (7-21); CALCIUM 8.5 mg/dL (8.4-10.5); CARBON DIOXIDE 28 mmol/L (21-33); CHLORIDE 108 mmol/L (98-107); GFR AFRICAN-AMERICAN > 60; GLUCOSE,RANDOM 98 mg/dL (70-110); POTASSIUM 3.4 mmol/L (3.6-5.0); SODIUM 141 mmol/L (132-148); TOTAL PROTEIN 6.3 g/dL (5.8-8.3)
[2017-01-27] MEDS ORDERED: Potassium Chloride 20 mEq ER Tab PO ONE (09:29)
--- NOTE | 2017-01-27 14:55 | PN ---
DATE: 01/27/2017 The patient is feeling better. She denies any abdominal pain this morning. She had episode of loose diarrhea this morning. She denies any nausea or vomiting. The patient tolerated clear liquids and feels hungry. PHYSICAL EXAMINATION: VITAL SIGNS: Stable. The patient is afebrile. Temperature 97.7, pulse 61, regular, blood pressure 133/71 and respiratory rate 20, her oxygen saturation is 98% on room air. GENERAL: The patient is comfortable, in reclining chair, alert, awake, oriented. HEENT: Head is normocephalic, atraumatic. Oral mucosa is dry. NECK: Supple. LUNGS: Clear to auscultation. HEART: With regular rhythm and rate. ABDOMEN: Soft. There is no localized tenderness. No muscle guarding. Bowel sounds are positive. EXTREMITIES: With no edema. DIAGNOSTIC TESTS: This morning, CBC with trending down WBC 12.5, hemoglobin 10.9, hematocrit 33.2. Her chemistry significant for borderline hypokalemia with potassium 3.4. The rest of electrolytes are stable and her renal function is normal with BUN 9 and creatinine 0.6. Blood cultures are negative. Her MRCP of abdomen from yesterday showed hepatic steatosis. There is dilated common bile duct of 13 mm in diameter, which abruptly tapers off. The pancreatic duct is normal. The patient has 4.8 cm cystic lesion in the pancreatic tail. There is no hydronephrosis. Spleen and adrenal glands are normal. ASSESSMENT: 1. Cecum colitis, clinically improved. 2. New onset of diarrhea, probably related to colitis. 3. Pancreatic tail lesion, etiology uncertain, possibly regrowth of her neuroendocrine tumor, possibly cyst. 4. Hypertension. PLAN OF TREATMENT: I will advance patient's diet. Will monitor for persistent diarrhea. The patient will be maintained on her antibiotics, metronidazole and Maxipime. 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 After review of GI note, no plans for immediate colonoscopy or EUS. Magali Beckham MD cc: [id number] TT: 01/27/2017 14:54:03 Confirmation # [id number] Dictation # [id number] tosha MARIE
--- NOTE | 2017-01-27 17:02 | CP.PCM.PN ---
Subjective - Date & Time of Evaluation Date of Evaluation: 01/27/17 Time of Evaluation: 09:50 - Subjective Subjective: Seen and examined at beside, OOB to chair, tolerated clear liquids, having loose stool. no blood, no abdominal pain. MRCP done yesterday, reports dilated CBD, stricture vs neoplasm/large cystic lesion pancreatic tail, neoplasm vs effect from pancreatitis. Objective - Vital Signs/Intake and Output Vital Signs (last 24 hours): Temp Pulse Resp BP Pulse Ox 97.7 F 61 20 133/71 98 01/27/17 07:28 01/27/17 09:39 01/27/17 07:28 01/27/17 09:39 01/27/17 07:28 Intake and Output: 01/27/17 01/27/17 06:59 18:59 Intake Total 600 Balance 600 - Medications Medications: Current Medications Amlodipine Besylate (Norvasc) 5 mg PO DAILY [facility] Last Admin: 01/27/17 09:39 Dose: 5 mg Metronidazole (Flagyl) 500 mg in 100 mls @ 100 mls/hr IVPB Q8 [facility] PRN Reason: Protocol Last Admin: 01/27/17 14:00 Dose: 100 mls/hr Cefepime HCl (Maxipime 2gm) 2 gm in 100 mls @ 100 mls/hr IVPB Q8 [facility] PRN Reason: Protocol Stop: 01/30/17 09:31 Last Admin: 01/27/17 16:41 Dose: 100 mls/hr Losartan Potassium (Cozaar) 50 mg PO DAILY [facility] Last Admin: 01/27/17 09:39 Dose: 50 mg Metoprolol Tartrate (Lopressor) 25 mg PO BID [facility] Last Admin: 01/27/17 09:39 Dose: 25 mg Pantoprazole Sodium (Protonix Inj) 40 mg IVP DAILY [facility] Last Admin: 01/27/17 09:39 Dose: 40 mg Paroxetine HCl (Paxil) 40 mg PO DAILY [facility] Last Admin: 01/27/17 09:39 Dose: 40 mg - Labs Labs: 01/27/17 06:30 01/27/17 06:30 - Constitutional Appears: No Acute Distress - Head Exam Head Exam: NORMAL INSPECTION - Eye Exam Eye Exam: Normal appearance. absent: Scleral icterus - ENT Exam ENT Exam: Mucous Membranes Moist - Neck Exam Neck Exam: Normal Inspection - Respiratory Exam Respiratory Exam: Clear to Ausculation Bilateral, NORMAL BREATHING PATTERN. absent: Respiratory Distress - Cardiovascular Exam Cardiovascular Exam: +S1 - GI/Abdominal Exam GI & Abdominal Exam: Soft, Normal Bowel Sounds. absent: Guarding, Tenderness, Rebound - Extremities Exam Extremities Exam: absent: Calf Tenderness, Pedal Edema - Neurological Exam Neurological Exam: Alert, Awake, Oriented x3 Assessment and Plan - Assessment and Plan (Free Text) Assessment: ASSESSMENT: Improving abdominal pain H/O neuroendocrine pancreatic tumor, status post resection. T s/p MRCP: CBD dilation, stricture vs neoplasm/ large cystic lesion pancreatic tail 4.8x4.6 cm, neoplasm vs effect of pancreatitis History of colon polyps GERD CAD s/p cardiac stent HTN PLAN: advance diet to solids on IV antibiotic, flagyl/cefepime PPI stool cidiff if continue with loose stools, discuss with nursing staff may benefit from EUS for further evaluation of pancreatic cystic lesion/ CBD dilation Seen and discussed with Dr. Guerrier.
[2017-01-27 17:11] VITALS: RESP 18
--- NOTE | 2017-01-27 18:53 | CP.PCM.PN ---
Subjective - Date & Time of Evaluation Date of Evaluation: 01/27/17 Time of Evaluation: 09:50 - Subjective Subjective: No abdominal pain, no fevers overnight, no nausea. Objective - Vital Signs/Intake and Output Vital Signs (last 24 hours): Temp Pulse Resp BP Pulse Ox 98.3 F 67 18 134/74 97 01/27/17 16:00 01/27/17 17:01 01/27/17 16:00 01/27/17 17:01 01/27/17 16:00 Intake and Output: 01/27/17 01/27/17 06:59 18:59 Intake Total 600 Balance 600 - Medications Medications: Current Medications Amlodipine Besylate (Norvasc) 5 mg PO DAILY [facility] Last Admin: 01/27/17 09:39 Dose: 5 mg Metronidazole (Flagyl) 500 mg in 100 mls @ 100 mls/hr IVPB Q8 [facility] PRN Reason: Protocol Last Admin: 01/27/17 14:00 Dose: 100 mls/hr Cefepime HCl (Maxipime 2gm) 2 gm in 100 mls @ 100 mls/hr IVPB Q8 [facility] PRN Reason: Protocol Stop: 01/30/17 09:31 Last Admin: 01/27/17 16:41 Dose: 100 mls/hr Losartan Potassium (Cozaar) 50 mg PO DAILY [facility] Last Admin: 01/27/17 09:39 Dose: 50 mg Metoprolol Tartrate (Lopressor) 25 mg PO BID [facility] Last Admin: 01/27/17 17:01 Dose: 25 mg Pantoprazole Sodium (Protonix Inj) 40 mg IVP DAILY [facility] Last Admin: 01/27/17 09:39 Dose: 40 mg Paroxetine HCl (Paxil) 40 mg PO DAILY [facility] Last Admin: 01/27/17 09:39 Dose: 40 mg - Labs Labs: 01/27/17 06:30 01/27/17 06:30 - Constitutional Appears: Non-toxic, No Acute Distress - Head Exam Head Exam: NORMAL INSPECTION - ENT Exam ENT Exam: Mucous Membranes Moist - Neck Exam Neck Exam: absent: Lymphadenopathy, Meningismus - Respiratory Exam Respiratory Exam: Decreased Breath Sounds - Cardiovascular Exam Cardiovascular Exam: +S1, +S2 - GI/Abdominal Exam GI & Abdominal Exam: Soft. absent: Tenderness Assessment and Plan - Assessment and Plan (Free Text) Plan: Assessment Consider sepsis due to cecal colitis R/O malignancy Common bile duct dilatation, etiology to be determined HTN CAD history of TIA S/P cholecystectomy S/P 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 S/P hysterectomy S/P appendectomy history of depression and anxiety breast CA S/P left lumpectomy bilateral cataract surgery Plan continue Cefepime and Flagyl day 3; blood cx are negative; reviewed MRCP results - follow up GI plans will monitor clinically
--- NOTE | 2017-01-28 01:46 | PN ---
DATE: 01/27/2017 ADDENDUM This is an addendum to the GI progress report dictated by Rosanne Sinclair APN. MRI scans were reviewed. The pancreatic tail area cystic lesion appears to be more of postoperative changes rather than true a pancreatic cyst. Also had a mildly pancreatic. Would benefit from diagnostic US as the patient is on Plavix. This this can be done electively. The patient also would benefit from colonoscopy to further evaluate the cecum. We will also consider electively. I would recommend to complete the antibiotic course. I discussed with Dr. Rodriguez. Thank you very much for allowing us to participate in the care of the patient. Stefani Guerrier MD cc: [id number] TT: 01/28/2017 01:45:00 Confirmation # [id number] Dictation # [id number] MTDD
[2017-01-28] MEDS: metroNIDAZOLE IV 500 mg/100 ml 500 MG/100 ML BAG IVPB SCH ×2 (06:19→17:06)
[2017-01-28] MEDS: Cefepime IV 2 gm in NS 2 GM/100 ML BAG IVPB SCH ×2 (06:24→17:06)
[2017-01-28 07:00] LABS: HEMATOCRIT 35.3 % (36.0-48.0); MEAN CELL VOLUME 88.3 fL (80.0-105.0); MEAN CORPUSCULAR HEMOGLOBIN 28.8 pg (25.0-35.0); MEAN CORPUSCULAR HGB CONC 32.6 g/dl (31.0-37.0); MEAN PLATELET VOLUME 9.9 fl (7.0-11.0); RED CELL DISTRIBUTION WIDTH 14.3 % (11.5-14.5)
[2017-01-28 07:17] LABS: ALB/GLOB RATIO 1.1 (1.1-1.8); ALKALINE PHOSPHATASE 88 U/L (38-133); ALT/SGPT 30 U/L (7-56); AST/SGOT 28 U/L (15-39); BILIRUBIN,TOTAL 0.6 mg/dL (0.2-1.3); BLOOD UREA NITROGEN 11 mg/dL (7-21); CALCIUM 8.8 mg/dL (8.4-10.5); CARBON DIOXIDE 27 mmol/L (21-33); CHLORIDE 107 mmol/L (98-107); GFR AFRICAN-AMERICAN > 60; GLUCOSE,RANDOM 100 mg/dL (70-110); POTASSIUM 3.9 mmol/L (3.6-5.0); SODIUM 139 mmol/L (132-148); TOTAL PROTEIN 6.7 g/dL (5.8-8.3)
[2017-01-28] MEDS ORDERED: Pantoprazole 40 mg EC Tab PO SCH (07:30)
--- NOTE | 2017-01-28 14:00 | CP.PCM.PN ---
Subjective - Date & Time of Evaluation Date of Evaluation: 01/28/17 Time of Evaluation: 11:00 - Subjective Subjective: Seen and examined at bedside, had loose BM this morning after eating, no bleeding. Otherwise feeling ok. No new complaints. NO reports of over GI bleed. Objective - Vital Signs/Intake and Output Vital Signs (last 24 hours): Temp Pulse Resp BP Pulse Ox 98.8 F 66 18 149/73 94 L 01/28/17 08:40 01/28/17 09:20 01/28/17 08:40 01/28/17 09:20 01/28/17 08:40 Intake and Output: 01/28/17 01/28/17 06:59 18:59 Intake Total 780 180 Balance 780 180 - Medications Medications: Current Medications Amlodipine Besylate (Norvasc) 5 mg PO DAILY [facility] Last Admin: 01/28/17 09:19 Dose: 5 mg Metronidazole (Flagyl) 500 mg in 100 mls @ 100 mls/hr IVPB Q8 [facility] PRN Reason: Protocol Last Admin: 01/28/17 06:19 Dose: 100 mls/hr Cefepime HCl (Maxipime 2gm) 2 gm in 100 mls @ 100 mls/hr IVPB Q8 [facility] PRN Reason: Protocol Stop: 01/30/17 09:31 Last Admin: 01/28/17 06:24 Dose: 100 mls/hr Losartan Potassium (Cozaar) 50 mg PO DAILY [facility] Last Admin: 01/28/17 09:20 Dose: 50 mg Metoprolol Tartrate (Lopressor) 25 mg PO BID [facility] Last Admin: 01/28/17 09:12 Dose: 25 mg Pantoprazole Sodium (Protonix Ec Tab) 40 mg PO ACB [facility] Last Admin: 01/28/17 08:40 Dose: 40 mg Paroxetine HCl (Paxil) 40 mg PO DAILY [facility] Last Admin: 01/28/17 09:16 Dose: 40 mg - Labs Labs: 01/28/17 06:30 01/28/17 06:30 - Constitutional Appears: No Acute Distress - Head Exam Head Exam: NORMAL INSPECTION - Eye Exam Eye Exam: Normal appearance. absent: Scleral icterus - ENT Exam ENT Exam: Mucous Membranes Moist - Neck Exam Neck Exam: Normal Inspection - Respiratory Exam Respiratory Exam: Clear to Ausculation Bilateral, NORMAL BREATHING PATTERN. absent: Respiratory Distress - Cardiovascular Exam Cardiovascular Exam: +S1, +S2 - GI/Abdominal Exam GI & Abdominal Exam: Soft, Normal Bowel Sounds. absent: Guarding, Tenderness, Rebound - Extremities Exam Extremities Exam: absent: Calf Tenderness, Pedal Edema Assessment and Plan - Assessment and Plan (Free Text) Assessment: ASSESSMENT: Resolved abdominal pain/consitpation H/O neuroendocrine pancreatic tumor, status post resection. s/p MRCP: CBD dilation, stricture vs neoplasm/ large cystic lesion pancreatic tail 4.8x4.6 cm, neoplasm vs effect of pancreatitis History of colon polyps GERD CAD s/p cardiac stent HTN PLAN: continue diet as tolerated on IV antibiotic, flagyl/cefepime PPI check stool cidiff Discuss elective outpatient colon and EUS of pancreatic cystic lesion/ CBD dilation Seen and discussed with Dr. Guerrier.
[2017-01-28 16:40] VITALS: BP 142/76; PULSE 65; TEMP 98.6; O2SAT 95
--- NOTE | 2017-01-28 17:06 | CP.PCM.PN ---
Subjective - Date & Time of Evaluation Date of Evaluation: 01/28/17 Time of Evaluation: 09:30 - Subjective Subjective: Comfortable, not in distress, no abodminal pain, no fevers. Objective - Vital Signs/Intake and Output Vital Signs (last 24 hours): Temp Pulse Resp BP Pulse Ox 98.6 F 65 18 142/76 95 01/28/17 16:39 01/28/17 16:39 01/28/17 16:39 01/28/17 16:39 01/28/17 16:39 Intake and Output: 01/28/17 01/28/17 06:59 18:59 Intake Total 780 300 Balance 780 300 - Medications Medications: Current Medications Amlodipine Besylate (Norvasc) 5 mg PO DAILY [facility] Last Admin: 01/28/17 09:19 Dose: 5 mg Metronidazole (Flagyl) 500 mg in 100 mls @ 100 mls/hr IVPB Q8 [facility] PRN Reason: Protocol Last Admin: 01/28/17 06:19 Dose: 100 mls/hr Cefepime HCl (Maxipime 2gm) 2 gm in 100 mls @ 100 mls/hr IVPB Q8 [facility] PRN Reason: Protocol Stop: 01/30/17 09:31 Last Admin: 01/28/17 06:24 Dose: 100 mls/hr Losartan Potassium (Cozaar) 50 mg PO DAILY [facility] Last Admin: 01/28/17 09:20 Dose: 50 mg Metoprolol Tartrate (Lopressor) 25 mg PO BID [facility] Last Admin: 01/28/17 09:12 Dose: 25 mg Pantoprazole Sodium (Protonix Ec Tab) 40 mg PO ACB [facility] Last Admin: 01/28/17 08:40 Dose: 40 mg Paroxetine HCl (Paxil) 40 mg PO DAILY [facility] Last Admin: 01/28/17 09:16 Dose: 40 mg - Labs Labs: 01/28/17 06:30 01/28/17 06:30 - Constitutional Appears: Non-toxic, No Acute Distress - Head Exam Head Exam: NORMAL INSPECTION - ENT Exam ENT Exam: Mucous Membranes Moist - Neck Exam Neck Exam: absent: Lymphadenopathy, Meningismus - Respiratory Exam Respiratory Exam: Decreased Breath Sounds - Cardiovascular Exam Cardiovascular Exam: +S1, +S2 - GI/Abdominal Exam GI & Abdominal Exam: Soft. absent: Tenderness Assessment and Plan - Assessment and Plan (Free Text) Plan: Assessment Consider sepsis due to cecal colitis R/O malignancy Common bile duct dilatation, etiology to be determined HTN CAD history of TIA S/P cholecystectomy S/P 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 S/P hysterectomy S/P appendectomy history of depression and anxiety breast CA S/P left lumpectomy bilateral cataract surgery Plan continue Cefepime and Flagyl day 4; blood cx are negative; reviewed MRCP results as discussed with Dr. Rodriguez, we can change antibiotics to Augmentin for another 5 days
--- NOTE | 2017-01-28 23:17 | DS ---
The patient was admitted for generalized abdominal pain, found to have thickening of the cecum consistent with an inflammation versus infection. The patient was treated with IV antibiotics, Flagyl and Maxipime. The patient is feeling much better today. The patient is tolerating a regular diet. She denies any abdominal pain, nausea or vomiting. She denies any diarrhea. PHYSICAL EXAMINATION ON DISCHARGE: VITAL SIGNS: Stable. Temperature 98.8, pulse 66, respiratory rate 18, blood pressure 149/73. GENERAL: The patient was comfortable in bed, alert, awake, oriented. HEENT: Head is normocephalic, atraumatic. Oral mucosa was moist. NECK: Supple. LUNGS: Clear to auscultation. HEART: With regular rhythm and rate. ABDOMEN: Soft, nontender and nondistended, no masses palpable. Bowel sounds are positive. EXTREMITIES: Were with no edema. FINAL DIAGNOSTIC STUDIES: Today, showed CBC with normal WBC 11, hemoglobin 11.5 , hematocrit 35.3. Her chemistry showed normal electrolytes and normal liver enzymes. Blood cultures were negative. MRCP showed a dilated common bile duct with sudden abrupt distal taper, but no obvious nodules or tumors. There was a large cystic lesion in the pancreatic tail without any post-contrast enhancement. ASSESSMENT: 1. Cecal colitis. 2. Pancreatic tail cyst. 3. Common bile duct dilatation. 4. Hypertension. 5. Coronary artery disease. PLAN OF TREATMENT: The patient will be discharged home today. The case was discussed with lumber salvager who is planning to do a colonoscopy and an endoscopic ultrasound outpatient after antibiotic treatment will be finished. The case was also discussed with infectious disease specialist. He agreed to change IV antibiotics to oral Augmentin 875 mg twice a day for 5 days. The patient also will continue her chronic medications as paroxetine, metoprolol, losartan, aspirin, amlodipine, Neurontin, Lipitor. The patient was advised to follow up with primary care doctor next week for reevaluation after finished antibiotics. Magali Beckham MD cc: [id number] TT: 01/28/2017 23:16:27 deepa MARIE
== END 2017-01-28 18:34 | disposition home or self-care (01) | DRG 392 ==
LOC: ED 21:53 → ERH 01-25 03:19 → 5RNO 01-25 04:35
PROVIDERS: ADMIT Family Medicine; ATTEND Family Medicine
DX: K52.9 Noninfective gastroenteritis and colitis, unspecified (principal); K86.2 Cyst of pancreas; I10 Essential (primary) hypertension; K83.8 Other specified diseases of biliary tract; I25.10 Atherosclerotic heart disease of native coronary artery without angina pectoris; K21.9 Gastro-esophageal reflux disease without esophagitis; F32.9 Major depressive disorder, single episode, unspecified; F41.9 Anxiety disorder, unspecified; Z86.73 Personal history of transient ischemic attack (TIA), and cerebral infarction without residual deficits; Z85.3 Personal history of malignant neoplasm of breast; Z79.82 Long term (current) use of aspirin; Z87.891 Personal history of nicotine dependence; Z98.42 Cataract extraction status, left eye; Z95.5 Presence of coronary angioplasty implant and graft; Z98.41 Cataract extraction status, right eye; Z86.010 Personal history of colon polyps

== ENCOUNTER 2017-02-02 11:53 | Observation (INO) | payer MEDICARE, OTHER ==
[2017-02-02] MEDS ORDERED: Morphine 2 mg/ml ISec IVP STA (12:18)
[2017-02-02 12:21] VITALS: BMI 27.4
--- NOTE | 2017-02-02 12:21 | ED PDOC ---
Arrival/HPI - General Chief Complaint: Pain, Chronic Time Seen by Provider: 02/02/17 11:54 Historian: Patient - History of Present Illness Narrative History of Present Illness (Text): 02/02/17 12:14 A 86 year old female, whose past medical history includes CAD with stents, hypertension, hyperlipidemia, neuroendocrine tumor of pancreas and left hip fracture s/p orif, to the emergency department complaining of right upper back pain for the past 3 days. Patient describes the pain as a muscle spasm which is worse with movement and ambulation. Patient took Tylenol, with no relief. Patient reports she was discharged from the hospital 5 days ago and placed on Augmentin and Flagyl for colitis. Patient notes non-bloody diarrhea but denies any trauma, fever, chills, nausea, vomiting, abdominal pain, urinary symptoms, chest pain, shortness of breath, headache, dizziness or any other complaints. PMD: Dr. Rodriguez Time/Duration: Other (3 days) Symptom Course: Worsening Quality: Other Context: Home Past Medical History - Provider Review Nursing Documentation Reviewed: Yes - Infectious Disease Hx of Infectious Diseases: None - Tetanus Immunization Tetanus Immunization: Unknown - Cardiac Hx Cardiac Disorders: Yes Hx Hypertension: Yes - Pulmonary Hx Respiratory Disorders: No (SINUSITIS) - Neurological Hx Neurological Disorder: Yes Hx Transient Ischemic Attacks (TIA): Yes - HEENT Hx HEENT Disorder: Yes Hx Cataracts: Yes (WITH BILATERAL SURGERY) - Renal Hx Renal Disorder: Yes Hx Kidney Stones: Yes (RIGHT SIDE) - Endocrine/Metabolic Hx Endocrine Disorders: No - Hematological/Oncological Hx Blood Disorders: No - Integumentary Hx Dermatological Disorder: No - Musculoskeletal/Rheumatological Hx Arthritis: Yes - Gastrointestinal Hx 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) - Genitourinary/Gynecological Hx Genitourinary Disorders: Yes (incontinent at times post op, starting to use bathroom with assist) - Psychiatric Hx Psychophysiologic Disorder: Yes Hx Anxiety: Yes Hx Depression: Yes Hx Substance Use: No - Surgical History Hx Hysterectomy: Yes Hx Orthopedic Surgery: Yes Other/Comment: Left breast lumpectomy. Pancreatic tumor removal - Anesthesia Hx Anesthesia: Yes Hx Anesthesia Reactions: No Hx Malignant Hyperthermia: No - Suicidal Assessment Feels Threatened In Home Enviroment: No Family/Social History - Physician Review Nursing Documentation Reviewed: Yes Family/Social History: No Known Family HX Smoking Status: Former Smoker Hx Alcohol Use: No Hx Substance Use: No Hx Substance Use Treatment: No Allergies/Home Meds Allergies/Adverse Reactions: Allergies lactose Allergy (Verified 04/07/16 10:39) VOMITING Home Medications: Home Meds Medication Instructions Recorded Confirmed Aspirin [Ecotrin] 81 mg PO DAILY 01/24/17 02/02/17 Atorvastatin [Lipitor] 40 mg PO DAILY 01/24/17 02/02/17 Bismuth Subsalicylate [Peptic 262 mg PO PRN PRN 01/24/17 01/25/17 Relief] Clopidogrel [Plavix] 75 mg PO DAILY 01/24/17 02/02/17 Docusate Sodium/Sennosides A 1 tab PO PRN PRN 01/24/17 01/25/17 [Senokot S 50 MG-8.6 MG] Gabapentin [Neurontin] 1,200 mg PO HS 01/24/17 01/25/17 Levocetirizine Dihydrochloride 5 mg PO DAILY 01/24/17 01/25/17 [Xyzal] Losartan/Hydrochlorothiazide 1 tab PO DAILY 01/24/17 01/25/17 [Losartan-Hctz 100-12.5 mg Tab] Metoprolol Tartrate 25 mg PO BID 01/24/17 01/25/17 Paroxetine HCl 40 mg PO DAILY 01/24/17 01/25/17 Simethicone [Mytab Gas] 80 mg PO PRN PRN 01/24/17 01/25/17 amLODIPine [Norvasc] 10 mg PO DAILY 01/24/17 01/25/17 Review of Systems - Physician Review All systems were reviewed & negative as marked: Yes - Review of Systems Constitutional: absent: Fevers, Night Sweats Respiratory: absent: SOB Cardiovascular: absent: Chest Pain Gastrointestinal: Diarrhea. absent: Abdominal Pain, Nausea, Vomiting Genitourinary Female: absent: Dysuria, Frequency, Hematuria, Urine Output Changes Musculoskeletal: Back Pain (Right upper back pain) Neurological: absent: Headache, Dizziness Physical Exam Vital Signs Reviewed: Yes Vital Signs Temp Pulse Resp BP Pulse Ox 02/02/17 17:33 64 16 133/63 92 L 02/02/17 15:57 98.1 F 59 L 16 143/65 93 L 02/02/17 12:01 98.9 F 98 H 20 167/72 H 99 05/31/17 11:54 98.9 F 98 H 20 167/72 H 99 Temperature: Afebrile Blood Pressure: Hypertensive Pulse: Tachycardic Respiratory Rate: Normal Appearance: Positive for: Well-Appearing, Non-Toxic, Comfortable Pain Distress: None Mental Status: Positive for: Alert and Oriented X 3 - Systems Exam Head: Present: Atraumatic, Normocephalic Pupils: Present: PERRL, Other (Irregular shaped pupil of right eye) Conjunctiva: Present: Normal Mouth: Present: Moist Mucous Membranes Neck: Present: Normal Range of Motion. No: MIDLINE TENDERNESS Respiratory/Chest: Present: Clear to Auscultation, Good Air Exchange. No: Respiratory Distress, Accessory Muscle Use Cardiovascular: Present: Regular Rate and Rhythm, Normal S1, S2. No: Murmurs Abdomen: Present: Normal Bowel Sounds. No: Tenderness, Distention, Peritoneal Signs Back: Present: Other (Tenderness to palpation over right trapezius). No: CVA Tenderness, Midline Tenderness, Pain with Leg Raise Upper Extremity: Present: Normal Inspection. No: Cyanosis, Edema Lower Extremity: Present: Normal Inspection. No: Edema Neurological: Present: GCS=15, CN II-XII Intact, Speech Normal Skin: Present: Warm, Dry, Normal Color. No: Rashes Psychiatric: Present: Alert, Oriented x 3, Normal Insight, Normal Concentration Medical Decision Making ED Course and Treatment: 02/02/17 12:14 Impression: A 86 year old female with right upper back pain, worse with movement. On exam. tenderness over right trapezius. Differential Diagnosis included but are not limited to: Plan: -- Thoracic spine CT -- Duplex lower extremity ultrasound -- Chest xray -- EKG -- Labs -- Urine culture and Urinalysis -- Valium and Morphine -- Reassess and disposition Prior Visits: Notes and results from previous visits were reviewed. Patient last seen in ED on 01/24/17 and hospitalized for abdominal pain. - Lab Interpretations Lab Results: 02/02/17 12:30 02/02/17 12:30 Lab Results 02/02/17 16:15: Urine Color Yellow, Urine Appearance Clear, Urine pH 7.0, Ur Specific Goff 1.020, Urine Protein 30 H, Urine Glucose (UA) Negative, Urine Ketones Negative, Urine Blood Moderate H, Urine Nitrate Negative, Urine Bilirubin Negative, Urine Urobilinogen 0.2, Ur Leukocyte Esterase Negative, Urine RBC 5 - 10, Urine WBC 0 - 2, Ur Epithelial Cells 0 - 2, Urine Bacteria Few 02/02/17 12:30: D-Dimer, Quantitative 1.52 H 02/02/17 12:30: Sodium 139, Potassium 3.7, Chloride 101, Carbon Dioxide 29, Anion Gap 13, BUN 14, Creatinine 0.6, Est GFR ( Amer) > 60, Est GFR (Non- Af Amer) > 60, Random Glucose 111 H, Calcium 9.3, Magnesium 1.9, Total Bilirubin 0.6, AST 26, ALT 31, Alkaline Phosphatase 93, Lactate Dehydrogenase 443, Total Creatine Kinase 27 L, Troponin I < 0.01, Total Protein 7.2, Albumin 3.9, Globulin 3.3, Albumin/Globulin Ratio 1.2 02/02/17 12:30: WBC 12.4 H, RBC 4.16, Hgb 12.0, Hct 36.3, MCV 87.3, MCH 28.8, MCHC 33.1, RDW 14.1, Plt Count 320, MPV 9.3, Gran % 72.2 H, Lymph % (Auto) 17.0 L, [place]ell % (Auto) 9.7 H, Eos % (Auto) 0.9 L, Baso % (Auto) 0.2, Gran # 8.94 H, Lymph # 2.1, Cabell # 1.2 H, Eos # 0.1, Baso # 0.03 - RAD Interpretation Radiology Orders: 02/02/17 12:18 CHEST TWO VIEWS (PA/LAT) [RAD] Stat DUPLEX LOWER EXTRM VEIN BILAT [US] Stat 02/02/17 12:20 THORACIC SPINE W/O CONT [CT] Stat 02/02/17 16:51 ANGIO CHEST PE PROTOCOL [CT] Stat - Medication Orders Current Medication Orders: Discontinued Medications Diazepam (Valium) 2.5 mg PO ONCE STA Stop: 02/02/17 12:20 Last Admin: 02/02/17 12:40 Dose: 2.5 mg Sodium Chloride (Sodium Chloride 0.9%) 250 mls @ 250 mls/hr IV .Q1H STA Stop: 02/02/17 17:51 Last Admin: 02/02/17 17:15 Dose: 250 mls/hr Iodixanol (Visipaque 320 Mg/Ml 100 Ml) Confirm Administered Dose 100 ml IV .STK- MED ONE Stop: 02/02/17 17:02 Morphine Sulfate (Morphine) 2 mg IVP STAT STA Stop: 02/02/17 12:19 Last Admin: 02/02/17 12:40 Dose: 2 mg Re-Assess: [facility] [employer] [facility] Pain Assessment Document 02/02/17 13:40 SRE (Rec: 02/02/17 15:49 [id number]) Pain Reassessment Is this a pain reassessment? Yes Sleep Is patient sleeping during reassessment? No Presence of Pain Presence of Pain Yes Pain Scale Used Pain Scale Used Numeric Location Pain Location Body Site Back Description Description Intermittent Oxycodone/Acetaminophen (Percocet 5/325 Mg Tab) 1 tab PO STAT STA Stop: 02/02/17 15:43 Last Admin: 02/02/17 15:51 Dose: 1 tab Re-Assess: [facility] Pain Assessment Document 02/02/17 16:51 SRE (Rec: 02/02/17 17:09 [id number]) Pain Reassessment Is this a pain reassessment? Yes Sleep Is patient sleeping during reassessment? No Presence of Pain Presence of Pain Yes Pain Scale Used Pain Scale Used Numeric Location Pain Location Body Site Back ED OBSERVATION Date of observation admission: 02/02/17 Time of observation admission: 12:10 - Observation admission statement Patient is being placed in observation because:: Back pain - Goals of Observation Goals of observation are:: Monitor and treat patients symptoms - Progress Note Progress Note: 02/02/17 12:10 Patient with right upper back pain. Plan includes CT, ultrasound, chest xray, EKG, labs and pain medication. 02/02/17 13:10 Patient taken to ultrasound. 02/02/17 13:50 Patient received pain medication, however, states she still has some pain at this time. Will continue to observe. Report Date : 02/02/2017 14:43:08 Procedure: Duplex lower extremity ultrasound Dictator : Sánchez Mcelroy MD IMPRESSION: No sonographic evidence for deep venous thrombosis in the visualized segments of both lower extremities. Report Date : 02/02/2017 14:44:16 Procedure: Chest xray Dictator : Cj Duran MD IMPRESSION: Poor inspiration with low lung volumes, mild crowded bronchovascular markings and mild bibasilar atelectasis right greater than left. Note that there is also slight elevation right hemidiaphragm ; rule out eventration. . 02/02/17 14:45 Ultrasound negative for DVT. 02/02/17 15:10 Patient reports pain has mildly improved. Will discuss case with Dr. Rodriguez. 02/02/17 15:31 EKG shows NSR at 75 BPM with frequent PVCs, RBBB, no new ST/T changes compared to 01/24/17. Interpreted by me. Report Date : 02/02/2017 15:33:19 PROCEDURE: CT scan thoracic spine dated 02/02/2017. Dictator : Cj Duran MD IMPRESSION: There are no acute compression fractures. Mild multilevel fish- mouth endplate deformities. No suspicious lytic or blastic lesions. Small to medium size hemangioma T6 segment. Mild multilevel degenerative spondylosis 02/02/17 15:40 Patient given percocet. D-dimer added. Case discussed with Dr. Rodriguez, who states if patient does not have PE she can be discharged home on Percocet and have her follow up in 2 days in his office. 02/02/17 16:50 D-dimer elevated, CT chest ordered. 02/02/17 18:14 CTA is negative for PE with unchanged pancreatic cystic lesion; no acute findings. Patient is feeling better after percocet - will d/c. - Scribe Statement The provider has reviewed the documentation as recorded by the Darellibjosé miguel Pérez Provider Scribe Attestation: All medical record entries made by the Scribe were at my direction and personally dictated by me. I have reviewed the chart and agree that the record accurately reflects my personal performance of the history, physical exam, medical decision making, and the department course for this patient. I have also personally directed, reviewed, and agree with the discharge instructions and disposition. Disposition/Present on Arrival - Present on Arrival Any Indicators Present on Arrival: No History of DVT/PE: No History of Uncontrolled Diabetes: No Urinary Catheter: No History of Decub. Ulcer: No History Surgical Site Infection Following: None - Disposition Have Diagnosis and Disposition been Completed?: Yes Diagnosis: Back pain Disposition: HOME/ ROUTINE Disposition Time: 12:10 Patient Plan: Discharge Condition: GOOD Discharge Instructions (ExitCare): Muscle Spasm (ED) Additional Instructions: Take the percocet as prescribed. Follow up with Dr. Rodriguez. Recommend physical therapy. Return to the emergency department if any new concerning symptoms. Prescriptions: oxyCODONE/Acetaminophen [Percocet 5/325 mg Tab] 1 tab PO Q8H PRN #20 tab PRN Reason: Pain, Severe (8-10) Referrals: Magali Beckham MD [Primary Care Provider] - Follow up with primary
[2017-02-02 12:48] LABS: ADD MANUAL DIFF? NO
[2017-02-02 12:50] LABS: BASO # 0.03 K/mm3 (0.0-2.0); BASO % 0.2 % (0.0-3.0); EOS # 0.1 (0.0-0.7); EOS % 0.9 % (1.5-5.0); GRAN # 8.94 (1.4-6.5); GRAN % 72.2 % (50.0-68.0); HEMATOCRIT 36.3 % (36.0-48.0); LYMPH # 2.1 (1.2-3.4); MEAN CELL VOLUME 87.3 fL (80.0-105.0); MEAN CORPUSCULAR HEMOGLOBIN 28.8 pg (25.0-35.0); MEAN CORPUSCULAR HGB CONC 33.1 g/dl (31.0-37.0); MEAN PLATELET VOLUME 9.3 fl (7.0-11.0); MONO # 1.2 (0.1-0.6); MONO % 9.7 % (1.0-6.0); PLATELET COUNT 320 10^3/uL (120.0-450.0); RED CELL DISTRIBUTION WIDTH 14.1 % (11.5-14.5); WHITE BLOOD COUNT 12.4 10^3/ul (4.5-11.0)
[2017-02-02 13:02] LABS: ALB/GLOB RATIO 1.2 (1.1-1.8); ALKALINE PHOSPHATASE 93 U/L (38-133); ALT/SGPT 31 U/L (7-56); AST/SGOT 26 U/L (15-39); BILIRUBIN,TOTAL 0.6 mg/dL (0.2-1.3); BLOOD UREA NITROGEN 14 mg/dL (7-21); CALCIUM 9.3 mg/dL (8.4-10.5); CARBON DIOXIDE 29 mmol/L (21-33); CHLORIDE 101 mmol/L (98-107); GFR AFRICAN-AMERICAN > 60; GLUCOSE,RANDOM 111 mg/dL (70-110); MAGNESIUM 1.9 mg/dL (1.7-2.2); POTASSIUM 3.7 mmol/L (3.6-5.0); SODIUM 139 mmol/L (132-148); TOTAL PROTEIN 7.2 g/dL (5.8-8.3)
[2017-02-02 13:12] LABS: TROPONIN I < 0.01 ng/mL
--- NOTE | 2017-02-02 14:45 | US ---
HISTORY: Leg pain and swelling. Evaluate for DVT PHYSICIAN(S): Sánchez Levy MD. TECHNIQUE: Duplex sonography and color-flow Doppler with graded compression were used to evaluate the deep venous systems of both lower extremities. FINDINGS: The visualized deep venous systems of both lower extremities are sonographically normal and compressible. Normal wave forms and augmentation are seen. There is no sonographic evidence for deep venous thrombosis in the visualized segments of both lower extremities. IMPRESSION: No sonographic evidence for deep venous thrombosis in the visualized segments of both lower extremities.
--- NOTE | 2017-02-02 14:45 | RAD ---
HISTORY: R upper back pain COMPARISON: Comparison made with prior chest radiograph 03/17/2015 TECHNIQUE: Chest PA and lateral FINDINGS: LUNGS: Poor inspiration with low lung volumes, mild crowded bronchovascular markings and mild bibasilar atelectasis right greater than left. Note that there is also slight elevation right hemidiaphragm ; rule out eventration. Previously described vascular congestive changes resolved. PLEURA: No significant pleural effusion identified. No pneumothorax apparent. CARDIOVASCULAR: Heart is mildly enlarged with slight ectatic uncoiled aorta. OSSEOUS STRUCTURES: Mild degenerative osteoarthritis both shoulder girdles. Mild multilevel degenerative spondylosis of the thoracic spine VISUALIZED UPPER ABDOMEN: Normal. OTHER FINDINGS: None. IMPRESSION: Poor inspiration with low lung volumes, mild crowded bronchovascular markings and mild bibasilar atelectasis right greater than left. Note that there is also slight elevation right hemidiaphragm ; rule out eventration. .
--- NOTE | 2017-02-02 15:34 | CT ---
PROCEDURE: CT scan thoracic spine dated 02/02/2017. HISTORY: Upper back pain, right greater than left, in a patient with a history of pancreatic tumor COMPARISON: Comparison made with CT scan of the thoracic spine 03/13/2015. TECHNIQUE: Contiguous helical/transaxial computed tomography images were obtained of the thoracic spine without intravenous contrast. Coronal and sagittal reformatted images were created and reviewed. Radiation dose: Total exam DLP = 770.20 mGy-cm. This CT exam was performed using one or more of the following dose reduction techniques: Automated exposure control, adjustment of the mA and/or kV according to patient size, and/or use of iterative reconstruction technique. FINDINGS: VERTEBRAE: The current study reveals no acute compression fractures nor retropulsed fragments. Mild multilevel fish-mouth endplate deformities are present. Vertebral bodies otherwise exhibit normal stature. Mild dextroscoliosis centered in the T7-T8 level. . Small to medium-sized hemangioma T6 segment. Other smaller scattered hemangiomata also suspected. No suspicious lytic or blastic lesions seen at this time. Consider followup CT scan non emergent PET scan for further evaluation if not already recently performed. DISCS/SPINAL CANAL/NEURAL FORAMINA: Mild multilevel degenerative spondylosis. Changes include varying degrees of disc space narrowing with endplate eburnation and small anterolateral as well as tiny posterior osteophyte formation. There are no large disc herniation or significant disc bulges. The overall central bony canal is quite capacious throughout. . Vacuum disc phenomena noted at several lower thoracic disc space levels. The exit foramina appear adequate as well. Note also made of degenerative spondylosis in the lower cervical region. PARASPINAL SOFT TISSUES: Paraspinal soft tissues appear grossly unremarkable. OTHER FINDINGS: Note made of significant on emphysematous changes with upper lobe predominance. Bibasilar atelectasis. Small hiatal hernia. Note made of multiple small nonspecific mediastinal lymph nodes. Punctate calcification upper/midpole left kidney. There additional of presumed vascular calcifications mid poles both kidneys. No evidence of hydronephrosis. IMPRESSION: There are no acute compression fractures. Mild multilevel fish-mouth endplate deformities. No suspicious lytic or blastic lesions. Small to medium size hemangioma T6 segment. Mild multilevel degenerative spondylosis See above discussion for details an additional incidental findings.
[2017-02-02] MEDS ORDERED: Oxycodone/Acetaminophen 5/325 mg Tab PO STA (15:42)
[2017-02-02 15:58] VITALS: RESP 16; TEMP 98.1
[2017-02-02 16:27] LABS: URINE BILIRUBIN NEGATIVE (NEGATIVE); URINE BLOOD MODERATE (NEGATIVE); URINE GLUCOSE (UA) NEGATIVE (NEGATIVE); URINE KETONE NEGATIVE (NEGATIVE); URINE LEUKOCYTE ESTERASE NEGATIVE Leu/uL (NEGATIVE); URINE PROTEIN 30 mg/dL (<30 mg/dL); URINE UROBILINOGEN 0.2 E.U./dL (<1 E.U./dL)
[2017-02-02 16:32] LABS: URINE APPEARANCE CLEAR (CLEAR); URINE COLOR YELLOW (YELLOW)
[2017-02-02 16:45] LABS: URINE BACTERIA FEW (NEG); URINE EPITHELIAL CELLS 0 - 2 /hpf (0-5); URINE WBC 0 - 2 /hpf (0-6)
[2017-02-02] MEDS ORDERED: Sodium Chloride 0.9% 250 ML IV STA (16:52)
[2017-02-02] MEDS ORDERED: Iodixanol 320 MG/ML 100 ML BOTTLE IV ONE (17:01)
[2017-02-02 17:34] VITALS: BP 133/63; PULSE 64; O2SAT 92
--- NOTE | 2017-02-02 17:53 | CT ---
CT chest with IV contrast Indication: R back pain - r/o PE Technique: Contiguous axial images were obtained through the chest with intravenous contrast enhancement. Sagittal and coronal reconstructions were generated and reviewed. This CT exam was performed using 1 or more of the falling dose reduction techniques: Automated exposure control, adjustment of the MAA and/or kV according to patient size, and/or use of iterative reconstruction technique. IV Contrast: 95 cc Visipaque 320 Radiation dose (DLP): 404.89 MGy-cm. Comparison: Chest x-ray performed 02/02/17 Findings: Streak and motion artifact limits evaluation. Visualized portions of the inferior thyroid gland appear heterogeneous. The mediastinal and hilar vascular structures appear within normal limits. The heart appears within normal limits of size. Cardiomegaly. Atherosclerotic calcifications of the aorta. Coronary artery calcifications. No large central or segmental pulmonary embolus evident. Centrilobular emphysema. Bibasilar atelectasis. No focal consolidation. No pleural effusion. No pneumothorax. Small hiatal hernia. Limited visualization of the upper abdomen reveals cholecystectomy clips. 4.7 x 5.3 cm partially imaged left upper quadrant cystic lesion, possibly arising from the pancreas. Osseous demineralization. Degenerative changes. Mild kyphosis. Please refer to CT of the thoracic spine performed the same day for more detailed discussion. Impression: No large central or segmental pulmonary embolus identified. Centrilobular emphysema. Bibasilar atelectasis. Cardiomegaly. Atherosclerotic calcifications of the aorta. Coronary artery calcifications. Heterogeneous appearance of the included portions of the inferior thyroid gland. Small hiatal hernia. Cholecystectomy clips. 4.7 x 5.3 cm partially imaged left upper quadrant cystic lesion possibly rising from the pancreas. Please refer to prior imaging which describes this finding in further detail.
--- NOTE | 2017-02-02 22:09 | CARD ---
APPROVED REPORT EKG Measurement Heart [id number] <Conclusion> Sinus rhythm with frequent premature ventricular complexes Right bundle branch block Abnormal ECG
== END 2017-02-02 18:18 | disposition home or self-care (01) ==
LOC: ED 11:53 → EROBSV 12:10
PROVIDERS: ADMIT Emergency Medicine; ATTEND Emergency Medicine
DX: M54.9 Dorsalgia, unspecified (principal); I10 Essential (primary) hypertension; E78.5 Hyperlipidemia, unspecified; I25.10 Atherosclerotic heart disease of native coronary artery without angina pectoris; Z95.5 Presence of coronary angioplasty implant and graft
CPT/HCPCS: 71020; 71275; 72128; 80053; 81001; 82550; 83615; 83735; 84484; 85025; 85378; 87086; 93005; 93970; 96374; 99285; G0378; J2270; J7040; Q9967

== ENCOUNTER 2017-03-15 12:29 | Day surgery (SDC) | payer MEDICARE, OTHER ==
[2017-03-07 10:32] VITALS: BMI 27.3
[2017-03-15 13:18] LABS: BASO # 0.03 K/mm3 (0.0-2.0); BASO % 0.3 % (0.0-3.0); EOS # 0.2 (0.0-0.7); EOS % 1.6 % (1.5-5.0); GRAN # 5.84 (1.4-6.5); GRAN % 62.2 % (50.0-68.0); HEMOGLOBIN 11.7 gm/dL (12.0-16.0); LYMPH # 2.5 (1.2-3.4); LYMPH % 26.7 % (22.0-35.0); MEAN CORPUSCULAR HEMOGLOBIN 28.6 pg (25.0-35.0); MEAN CORPUSCULAR HGB CONC 32.1 g/dl (31.0-37.0); MEAN PLATELET VOLUME 9.7 fl (7.0-11.0); MONO # 0.9 (0.1-0.6); MONO % 9.2 % (1.0-6.0); PLATELET COUNT 332 10^3/uL (120.0-450.0); RBC 4.09 10^6/uL (3.5-6.1); RED CELL DISTRIBUTION WIDTH 14.7 % (11.5-14.5); WHITE BLOOD COUNT 9.4 10^3/ul (4.5-11.0)
[2017-03-15 13:28] LABS: ALB/GLOB RATIO 1.4 (1.1-1.8); ALBUMIN 4.5 g/dL (3.0-4.8); ALT/SGPT 25 U/L (7-56); AMYLASE 103 U/L (35-125); AST/SGOT 30 U/L (15-39); BLOOD UREA NITROGEN 20 mg/dL (7-21); CALCIUM 9.8 mg/dL (8.4-10.5); GAMMA GLUTAMYL TRANSPEPTIDASE 17 U/L (8-78); GFR AFRICAN-AMERICAN > 60; GFR NON-AFRICAN AMERICAN 53; INR 1.06 (0.93-1.08); LIPASE 87 U/L (23-300); PARTIAL THROMBOPLASTIN TIME 29.5 Seconds (23.7-30.8); PROTHROMBIN TIME 11.4 Seconds (9.9-11.8)
[2017-03-15] MEDS ORDERED: Propofol 10 mg/ml Inj (20 ML) ONE (14:09)
[2017-03-15] MEDS ORDERED: Midazolam 2 MG/2 ML VIAL ONE (14:09)
[2017-03-15] MEDS ORDERED: Sodium Chloride 0.9% 1,000 ML IV SCH (15:45)
[2017-03-15] MEDS ORDERED: Potassium Chloride 20 mEq ER Tab PO ONE ×2 (16:07→17:17)
[2017-03-15 17:07] VITALS: RESP 18; O2SAT 95
[2017-03-15 17:54] VITALS: BP 128/60; PULSE 68; TEMP 98
== END 2017-03-15 18:20 | disposition home or self-care (01) ==
LOC: ENDO 12:29
PROVIDERS: ATTEND Internal Medicine Gastroenterology
DX: K20.9 Esophagitis, unspecified (principal); K31.7 Polyp of stomach and duodenum; K29.70 Gastritis, unspecified, without bleeding; K83.8 Other specified diseases of biliary tract; K57.30 Diverticulosis of large intestine without perforation or abscess without bleeding; K62.1 Rectal polyp; K64.8 Other hemorrhoids; K63.89 Other specified diseases of intestine; I25.10 Atherosclerotic heart disease of native coronary artery without angina pectoris; I10 Essential (primary) hypertension; E78.5 Hyperlipidemia, unspecified
CPT/HCPCS: 36415; 43239; 43259; 45380; 80053; 82150; 82977; 83690; 85025; 85610; 85730; 88305; 88342; J2250; J2704; J3010; J7040 ×2

== ENCOUNTER 2017-03-29 06:32 | Inpatient (IN) | payer MEDICARE, OTHER ==
[2017-03-29 06:32] VITALS: BMI 27.3
[2017-03-29] MEDS ORDERED: Morphine 2 mg/ml ISec IM STA (06:41)
[2017-03-29] MEDS ORDERED: Morphine 4 mg/ml ISec ONE (07:01)
--- NOTE | 2017-03-29 07:11 | ED PDOC ---
Arrival/HPI <Stepan Guevara - Last Filed: 03/29/17 08:27> - History of Present Illness Time/Duration: 24 hours Symptom Course: Worsening Quality: Aching <Anderson Chaidez - Last Filed: 04/02/17 01:05> - General Chief Complaint: Lower Extremity Problem/Injury Time Seen by Provider: 03/29/17 06:37 - History of Present Illness Narrative History of Present Illness (Text): 03/29/17 07:11 pt present with fall from yesterday c/o rt leg and rt arm pain, denies any cp or sob or head injury, able to ambulate however pain got worst 04/02/17 01:03 (Anderson Chaidez) Past Medical History - Provider Review Nursing Documentation Reviewed: Yes - Infectious Disease Hx of Infectious Diseases: None - Tetanus Immunization Tetanus Immunization: Unknown - Reproductive Menopause: Yes - Cardiac Hx Hypertension: Yes Hx Pacemaker: No - Pulmonary Hx Respiratory Disorders: No (SINUSITIS) - Neurological Hx Paralysis: No - HEENT Hx HEENT Disorder: Yes Hx Cataracts: Yes (WITH BILATERAL SURGERY) - Renal Hx Renal Disorder: Yes Hx Kidney Stones: Yes (RIGHT SIDE) - Endocrine/Metabolic Hx Endocrine Disorders: No - Hematological/Oncological Hx Blood Transfusions: Yes Hx Blood Transfusion Reaction: No - Integumentary Hx Dermatological Disorder: No - Musculoskeletal/Rheumatological Hx Musculoskeletal Disorders: Yes (CERVICAL) - Gastrointestinal Hx 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) Other/Comment: colonscopy/endoscopy - Genitourinary/Gynecological Hx Genitourinary Disorders: Yes (incontinent at times post op, starting to use bathroom with assist) - Psychiatric Hx Emotional Abuse: No Hx Physical Abuse: No Hx Substance Use: No - Surgical History Hx Orthopedic Surgery: Yes (left femur) 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 - Anesthesia Hx Anesthesia Reactions: No Hx Malignant Hyperthermia: No - Suicidal Assessment Feels Threatened In Home Enviroment: No <Anderson Chaidez - Last Filed: 04/02/17 01:05> Family/Social History - Physician Review Nursing Documentation Reviewed: Yes Family/Social History: No Known Family HX Smoking Status: Former Smoker Hx Alcohol Use: No Hx Substance Use: No Hx Substance Use Treatment: No <Anderson Chaidez - Last Filed: 04/02/17 01:05> Allergies/Home Meds <PaolaStepan - Last Filed: 03/29/17 08:27> <Anderson Chaidez - Last Filed: 04/02/17 01:05> Allergies/Adverse Reactions: Allergies lactose Allergy (Intermediate, Verified 03/29/17 06:50) VOMITING VEGETABLES Adverse Reaction (Intermediate, Uncoded 03/29/17 06:50) DIARRHEA/BLOATING PT COULD NOT BE SPECIFIC Home Medications: Home Meds Medication Instructions Recorded Confirmed Aspirin [Ecotrin] 81 mg PO QAM 01/24/17 03/29/17 Atorvastatin [Lipitor] 40 mg PO QPM 01/24/17 03/29/17 Clopidogrel [Plavix] 75 mg PO DAILY 01/24/17 03/29/17 Gabapentin [Neurontin] 300 mg PO HS 01/24/17 03/29/17 Levocetirizine Dihydrochloride 5 mg PO PRN PRN 01/24/17 03/29/17 [Xyzal] Losartan/Hydrochlorothiazide 1 tab PO QAM 01/24/17 03/29/17 [Losartan-Hctz 100-12.5 mg Tab] Paroxetine HCl 40 mg PO QAM 01/24/17 03/29/17 amLODIPine [Norvasc] 10 mg PO QAM 01/24/17 03/29/17 Metoprolol Tartrate [Lopressor] 25 mg PO QPM 03/07/17 03/29/17 Tramadol HCl [Ultram] 50 mg PO PRN PRN 03/07/17 03/29/17 Potassium Chloride [K-Dur 20] 20 meq PO DAILY 03/15/17 03/29/17 Review of Systems - Physician Review All systems were reviewed & negative as marked: Yes - Review of Systems Constitutional: Normal Eyes: Normal ENT: Normal Respiratory: Normal Cardiovascular: Normal. absent: Chest Pain Gastrointestinal: Normal Genitourinary Female: Normal Musculoskeletal: Arthralgias (rt leg pain and rt arm pain). absent: Back Pain Skin: Normal Neurological: Normal Endocrine: Normal Hemo/Lymphatic: Normal Psychiatric: Normal <Anderson Chaidez - Last Filed: 04/02/17 01:05> Physical Exam Vital Signs Reviewed: Yes Temperature: Afebrile Blood Pressure: Normal Pulse: Regular Respiratory Rate: Normal Appearance: Positive for: Well-Appearing, Non-Toxic, Comfortable Pain Distress: None Mental Status: Positive for: Alert and Oriented X 3 - Systems Exam Head: Present: Atraumatic, Normocephalic Pupils: Present: PERRL Extroacular Muscles: Present: EOMI Conjunctiva: Present: Normal Mouth: Present: Moist Mucous Membranes Neck: Present: Normal Range of Motion Respiratory/Chest: Present: Clear to Auscultation, Good Air Exchange. No: Respiratory Distress, Accessory Muscle Use Cardiovascular: Present: Regular Rate and Rhythm, Normal S1, S2. No: Murmurs Abdomen: Present: Normal Bowel Sounds. No: Tenderness, Distention, Peritoneal Signs Back: Present: Normal Inspection Upper Extremity: Present: Normal Inspection, NORMAL PULSES, Neurovascularly Intact. No: Cyanosis, Edema, Normal ROM Lower Extremity: Present: Normal ROM (rt leg), Neurovascularly Intact, Other ( ecchymosis rt thigh). No: Edema Neurological: Present: GCS=15, CN II-XII Intact, Speech Normal Skin: Present: Warm, Dry, Normal Color. No: Rashes Psychiatric: Present: Alert, Oriented x 3, Normal Insight, Normal Concentration <Anderson Chaidez - Last Filed: 04/02/17 01:05> Vital Signs Temp Pulse Resp BP Pulse Ox 03/29/17 09:42 76 18 151/64 H 94 L 03/29/17 08:01 66 16 146/58 L 94 L 03/29/17 06:50 98.0 F 68 18 162/86 H 98 Medical Decision Making <Stepan Guevara - Last Filed: 03/29/17 08:27> - Transfer of Care Patient signed out to Dr:: paola x rays and dispo <Anderson Chaidez - Last Filed: 04/02/17 01:05> ED Course and Treatment: 03/29/17 07:36 Case signed out to me by Dr. Chaidez. An 86 year old female presents to the emergency department after mechanical fall complaining of right leg and right arm pain. No head trauma or neurological deficits on physical examination. Xray ordered. 03/29/17 08:10 Right elbow fracture, interpreted by me. Distal neurovascular fully intact. Splint applied. More pain medications given. PMD was paged for admission. Patient ambulates only with walker. Unable to ambulate due to fracture. 07/25/17 08:[address] Cole in detail, who accepts patient to his service. I have discussed the results and plan with the patient, who expresses understanding. Patient given the opportunity to ask question, all questions were answered and there is agreement with the plan to be admitted to the hospital. Dr. Joe soares. (PaolaStepan) - RAD Interpretation Radiology Orders: 03/29/17 06:41 ELBOW RIGHT 3 VIEWS ROUTINE [RAD] Stat SHOULDER RIGHT [RAD] Stat 03/29/17 06:42 Hip Right [HIP MIN 2V W/ PELVIS RT] [RAD] Stat WRIST, RIGHT 3 VIEWS [RAD] Stat 03/29/17 08:17 CHEST PORTABLE [RAD] Stat - Medication Orders Current Medication Orders: Amlodipine Besylate (Norvasc) 10 mg PO DAILY MICKI Last Admin: 04/01/17 11:22 Dose: 10 mg Atorvastatin Calcium (Lipitor) 40 mg PO DAILY MICKI Last Admin: 04/01/17 11:21 Dose: 40 mg Metoprolol Tartrate (Lopressor) 25 mg PO BID MICKI Last Admin: 04/01/17 17:17 Dose: 25 mg Metronidazole (Flagyl) 500 mg PO TID MICKI PRN Reason: Protocol Last Admin: 04/01/17 17:17 Dose: 500 mg Morphine Sulfate (Morphine) 2 mg IVP Q4H PRN PRN Reason: Pain, moderate (4-7) Last Admin: 04/01/17 20:59 Dose: 2 mg Potassium Chloride (K-Dur 20 Meq Er Tab) 20 meq PO BRK MICKI Last Admin: 04/01/17 11:22 Dose: 20 meq Discontinued Medications Amlodipine Besylate (Norvasc) 10 mg PO STAT STA Stop: 03/29/17 10:19 Last Admin: 03/29/17 12:19 Dose: 10 mg Atorvastatin Calcium (Lipitor) 40 mg PO STAT STA Stop: 03/29/17 10:22 Last Admin: 03/29/17 12:19 Dose: 40 mg Barium Sulfate (Readi-Cat 2) Confirm Administered Dose 900 ml PO .STK-MED ONE Stop: 04/01/17 06:41 Morphine Sulfate (Morphine) 2 mg IM STAT STA Stop: 03/29/17 06:42 Last Admin: 03/29/17 07:05 Dose: 2 mg Re-Assess: MAR Pain Assessment Document 03/29/17 08:05 NV (Rec: 03/29/17 08:10 NV [id number]) Pain Reassessment Is this a pain reassessment? Yes Sleep Is patient sleeping during reassessment? No Presence of Pain Presence of Pain Yes Pain Scale Used Pain Scale Used Numeric Morphine Sulfate (Morphine) Confirm Administered Dose 4 mg .ROUTE .STK-MED ONE Stop: 03/29/17 07:02 Morphine Sulfate (Morphine) 6 mg IVP STAT STA Stop: 03/29/17 08:09 Last Admin: 03/29/17 08:20 Dose: 6 mg Morphine Sulfate (Morphine) 4 mg IVP STAT STA Stop: 03/29/17 09:40 Last Admin: 03/29/17 10:05 Dose: 4 mg Morphine Sulfate (Morphine) 4 mg IVP Q4 PRN PRN Reason: Pain, moderate (4-7) Last Admin: 03/30/17 09:24 Dose: 4 mg Re-Assess: MAR Pain Assessment Document 03/30/17 10:24 PEDRO (Rec: 03/30/17 17:29 PEDRO [facility] [id number]) Pain Reassessment Is this a pain reassessment? Yes Sleep Is patient sleeping during reassessment? No Presence of Pain Presence of Pain No Ondansetron HCl (Zofran Inj) 4 mg IVP STAT STA Stop: 03/29/17 09:40 Last Admin: 03/29/17 10:05 Dose: 4 mg Pneumococcal Polyvalent Vaccine (Pneumovax 23 Vaccine) 0.5 ml IM .ONCE ONE Stop: 03/29/17 14:24 Potassium Chloride (K-Dur 20 Meq Er Tab) 20 meq PO ONCE ONE Stop: 03/29/17 18:15 Last Admin: 03/29/17 18:33 Dose: 20 meq Disposition/Present on Arrival - Present on Arrival Any Indicators Present on Arrival: No - Disposition Have Diagnosis and Disposition been Completed?: Yes Disposition Time: 08:27 Patient Plan: Admission <Stepan Guevara - Last Filed: 03/29/17 08:27> - Present on Arrival Any Indicators Present on Arrival: No History of DVT/PE: No History of Uncontrolled Diabetes: No Urinary Catheter: No History of Decub. Ulcer: No History Surgical Site Infection Following: None - Disposition Have Diagnosis and Disposition been Completed?: Yes Disposition Time: 07:00 <Anderson Chaidez - Last Filed: 04/02/17 01:05> - Disposition Diagnosis: Fall, Elbow fracture Disposition: HOSPITALIZED Patient Problems: Current Active Problems Problem Status Onset Elbow fracture Acute Fall Acute Condition: FAIR
--- NOTE | 2017-03-29 08:36 | RAD ---
PROCEDURE: Right Wrist Radiographs. HISTORY: FALL COMPARISON: None. FINDINGS: BONES: There is diffuse bone demineralization. There is no acute displaced fracture or bone destruction. The proximal and distal carpal rows are maintained. JOINTS: There is severe degenerative osteoarthrosis in the 1st LONG-TERM joint. SOFT TISSUES: There is calcification of the triangular fibrocartilage, likely degenerative in etiology. OTHER FINDINGS: None. IMPRESSION: Limited evaluation as only a single frontal projection was obtained, allowing for this no acute displaced fracture or dislocation. 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
--- NOTE | 2017-03-29 08:48 | RAD ---
PROCEDURE: Radiographs of the Right Shoulder HISTORY: FALL COMPARISON: No prior. FINDINGS: BONES: Limited evaluation as a single frontal projection is provided, allowing for there is a longitudinal lucency in the proximal diaphysis of the humerus.There is diffuse bone demineralization. JOINTS: There is moderate degenerative osteoarthrosis in the acromioclavicular joint. SOFT TISSUES: Normal. OTHER FINDINGS: None. IMPRESSION: Limited evaluation as single frontal projection is provided. Allowing for this question of acute longitudinal nondisplaced fracture in the proximal diaphysis of the humerus.
--- NOTE | 2017-03-29 08:50 | RAD ---
HISTORY: Cough COMPARISON: 02/02/2017. FINDINGS: LUNGS: Lung markings are accentuated and there is mild interstitial thickening. Also noted is a left retrocardiac opacity. PLEURA: No significant pleural effusion identified, no pneumothorax apparent. CARDIOVASCULAR: The heart is normal in size. Atherosclerotic aortic arch calcifications are present. OSSEOUS STRUCTURES: No significant abnormalities. VISUALIZED UPPER ABDOMEN: Normal. OTHER FINDINGS: None. IMPRESSION: Findings may represent interstitial pneumonitis or interstitial pulmonary edema. Left retrocardiac opacity could represent subsegmental atelectasis however superimposed pneumonia cannot be excluded. Follow-up is advised.
--- NOTE | 2017-03-29 08:58 | RAD ---
PROCEDURE: Left Hip X-ray Radiographs. HISTORY: Fall COMPARISON: None. FINDINGS: BONES: The pelvic ring is intact. There is diffuse bone demineralization. . There is no acute displaced fracture or bone destruction. Status post open reduction and internal fixation of the left proximal femoral fracture. JOINTS: There is mild degenerative osteoarthrosis in the hip joints and sacroiliac joints. SOFT TISSUES: Normal. OTHER FINDINGS: None. IMPRESSION: No acute displaced fracture or dislocation. Please note occult fractures cannot be excluded on plain radiographs. If there is a persistent clinical concern, an MRI of the hip may be performed for further evaluation.
--- NOTE | 2017-03-29 09:09 | RAD ---
PROCEDURE: Radiographs of the right elbow. HISTORY: FALL COMPARISON: No prior. FINDINGS: BONES: Examination is limited due to suboptimal positioning. Allowing for this, there is an apparent cortical step-off in the proximal ulna. There is diffuse bone demineralization. There is no bone destruction. JOINTS: Normal. No osteoarthritis. SOFT TISSUES: Normal. JOINT EFFUSION: None. OTHER FINDINGS: None. IMPRESSION: Limited examination due to suboptimal positioning, allowing for this suspect acute nondisplaced fracture in the proximal ulna.
[2017-03-29 09:23] LABS: ADD MANUAL DIFF? NO
[2017-03-29 09:28] LABS: BASO # 0.02 K/mm3 (0.0-2.0); BASO % 0.1 % (0.0-3.0); EOS % 0.2 % (1.5-5.0); GRAN # 13.32 (1.4-6.5); GRAN % 78.6 % (50.0-68.0); HEMATOCRIT 36.8 % (36.0-48.0); LYMPH # 1.8 (1.2-3.4); LYMPH % 10.6 % (22.0-35.0); MEAN CELL VOLUME 86.2 fL (80.0-105.0); MEAN CORPUSCULAR HGB CONC 33.7 g/dl (31.0-37.0); MEAN PLATELET VOLUME 9.7 fl (7.0-11.0); MONO # 1.8 (0.1-0.6); MONO % 10.5 % (1.0-6.0); PLATELET COUNT 327 10^3/uL (120.0-450.0); RED CELL DISTRIBUTION WIDTH 13.9 % (11.5-14.5); WHITE BLOOD COUNT 16.9 10^3/ul (4.5-11.0)
[2017-03-29] MEDS ORDERED: Morphine 4 mg/ml ISec IVP STA (09:39)
[2017-03-29 09:43] LABS: INR 1.04 (0.93-1.08); PARTIAL THROMBOPLASTIN TIME 27.4 Seconds (23.7-30.8)
[2017-03-29 10:26] LABS: ALB/GLOB RATIO 1.2 (1.1-1.8); ALKALINE PHOSPHATASE 119 U/L (38-133); ALT/SGPT 26 U/L (7-56); AST/SGOT 27 U/L (15-39); BILIRUBIN,TOTAL 0.9 mg/dL (0.2-1.3); BLOOD UREA NITROGEN 15 mg/dL (7-21); CARBON DIOXIDE 28 mmol/L (21-33); CHLORIDE 99 mmol/L (98-107); GFR AFRICAN-AMERICAN > 60; GLUCOSE,RANDOM 127 mg/dL (70-110); POTASSIUM 3.2 mmol/L (3.6-5.0); SODIUM 139 mmol/L (132-148); TOTAL PROTEIN 7.4 g/dL (5.8-8.3)
[2017-03-29] MEDS ORDERED: Pneumococcal 23-Valent Vaccine IM ONE (14:23)
--- NOTE | 2017-03-29 17:04 | RAD ---
PROCEDURE: Right Femur Radiographs. HISTORY: rule out femur fx COMPARISON: None. TECHNIQUE: AP and Lateral Radiographs of the right femur. FINDINGS: FEMUR: Normal. No fracture. SOFT TISSUES: Normal. OTHER FINDINGS: None. IMPRESSION: Unremarkable radiographs of the right femur.
[2017-03-29] MEDS ORDERED: Potassium Chloride 20 mEq ER Tab PO ONE (18:14)
[2017-03-29] MEDS: Morphine 4 mg/ml ISec IVP PRN (20:02)
[2017-03-30] MEDS: Morphine 4 mg/ml ISec IVP PRN ×2 (02:30→09:24)
--- NOTE | 2017-03-30 05:24 | CON ---
DATE: 03/29/2017 REASON FOR CONSULTATION: Right elbow fracture, status post mechanical fall. HISTORY OF PRESENT ILLNESS: This is an 86-year-old female, who presented status post fall with complaints of right upper extremity pain, right thigh pain. The patient said she fell approximately 3 days ago and subsequently admitted today. She was seen in the emergency room, placed in the right upper extremity splint. She denies any numbness or tingling in her right upper extremity, really just pain. She says that she has pain and bruising on the upper part of her right thigh. She denies any groin pain. On examination of the right upper extremity, she is able to actively forward flex her shoulder with some mild pain at the elbow. No gross crepitus is appreciated about the shoulder. No gross dislocation is appreciated. She does have some tenderness over the elbow with some swelling. Grossly, she is neurovascularly intact. She is moving all her fingers. Evaluation of the right lower extremity shows that she has no pain with passive internal and external rotation of it. She is able to tolerate active and passive hip flexion without any significant pain. She does have some significant area of ecchymosis along the lateral aspect of the proximal femur. There is some mild thigh swelling grossly, she is neurovascularly intact. No gross knee effusion is appreciated. Her calf is soft and nontender. She is actively moving her left lower extremity without any pain. X-ray shows that she has 1-view of the right shoulder which shows no obvious fracture or dislocation, but this is limited. She has multiple views of the right elbow, however, are very limited because of the patient's position. There is a questionable fracture of the proximal ulna, but this is not well delineated and this is not well visualized. She has 1 view of her right wrist and hand, again which showed severe first MCP arthritis, but no obvious fractures are appreciated on this limited view. She has an AP of her pelvis which shows a previous left hip intertrochanteric fracture with an intramedullary nail that has healed. No acute right hip fracture or dislocation is appreciated; however, the femur is not well visualized. IMPRESSION: Status post fall with right elbow pain and right thigh pain. PLAN: At this point, I recommended that we get a CAT scan of the right elbow to better evaluate it, and also we get x-rays of her right femur. For now, we will keep her nonweightbearing. We will follow up once the films are done. Jose Diaz MD
[2017-03-30 08:06] LABS: HEMATOCRIT 34.8 % (36.0-48.0); MEAN CELL VOLUME 87.4 fL (80.0-105.0); MEAN CORPUSCULAR HEMOGLOBIN 28.1 pg (25.0-35.0); MEAN CORPUSCULAR HGB CONC 32.2 g/dl (31.0-37.0); MEAN PLATELET VOLUME 9.7 fl (7.0-11.0); RED CELL DISTRIBUTION WIDTH 14.1 % (11.5-14.5); WHITE BLOOD COUNT 18.6 10^3/ul (4.5-11.0)
[2017-03-30 08:13] LABS: ALB/GLOB RATIO 1.2 (1.1-1.8); ALKALINE PHOSPHATASE 104 U/L (38-133); ALT/SGPT 25 U/L (7-56); AST/SGOT 23 U/L (15-39); BILIRUBIN,TOTAL 0.9 mg/dL (0.2-1.3); BLOOD UREA NITROGEN 16 mg/dL (7-21); CALCIUM 8.7 mg/dL (8.4-10.5); CARBON DIOXIDE 28 mmol/L (21-33); CHLORIDE 96 mmol/L (95-110); GFR AFRICAN-AMERICAN > 60; GLUCOSE,RANDOM 127 mg/dL (70-110); POTASSIUM 3.4 mmol/L (3.6-5.0); SODIUM 134 mmol/L (132-148); TOTAL PROTEIN 6.9 g/dL (5.8-8.3)
--- NOTE | 2017-03-30 08:31 | HP ---
CHIEF COMPLAINT: Right elbow pain since yesterday. HISTORY OF PRESENT ILLNESS: An 86-year-old female with history of hypertension, coronary artery disease, osteoporosis, who presented to the emergency room today with complains of right elbow pain and swelling since yesterday. The patient fell yesterday afternoon walking on the street with walker and hitting the right elbow. The patient denies any loss of consciousness and bleeding. She developed severe pain and swelling overnight and decided to come to emergency room this morning. PAST MEDICAL HISTORY: Coronary artery disease, hypertension, hyperlipidemia, osteoporosis, pancreatic cyst and anxiety. 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 CURRENT MEDICATIONS: Paroxetine 40 mg daily, metoprolol 25 mg twice a day, losartan and hydrochlorothiazide 50/12.5 daily, amlodipine 10 mg daily, Plavix 75 mg daily and Lipitor 40 mg daily. ALLERGIES: THE PATIENT HAS ALLERGY TO LACTOSE, BUT NO KNOWN ALLERGIES TO MEDICATION. FAMILY HISTORY: Noncontributory. SOCIAL HISTORY: The patient has history of smoking, but she quit 30 years ago. The patient denies any alcohol or drug use. The patient is retired. She lives alone in apartment. She is ambulatory, but needs support of walker or cane. REVIEW OF SYSTEMS: The patient complains of loss of appetite and some weight loss over the past 2 months, but she denies any fever. She denies any sore throat, dysphagia. She denies any blurry vision. She denies any cough, shortness of breath or dyspnea. The patient denies any chest pain or heart palpitation. She complains of recurrent abdominal pain and some loose stools over the past 2 months, but she denies any vomiting. The patient complains of chronic joint pain and low back, hand and knee pain. The patient has history of depression, anxiety, but denies any suicidal thoughts or insomnia. PHYSICAL EXAMINATION GENERAL: The patient was uncomfortable, but in no acute form of distress. VITAL SIGNS: Temperature 99.9, blood pressure 146/74, pulse 74, regular, respiratory rate 18 and oxygen saturation 96% on room air. HEENT: Head is normocephalic and atraumatic. Eyes: Pupils reactive to light. No jaundice. Oral mucosa was moist. NECK: Supple. No neck masses or JVD. CARDIOPULMONARY: Irregular rate, rate of 60 per minute. LUNGS: Clear to auscultation. ABDOMEN: Soft, nontender and nondistended. EXTREMITIES: Right upper extremities with tenderness and swelling of the right elbow. The patient was able to move hand. The pulses were normal. Left extremities with full range of motion. No edema. Lower extremities with full range of motion. No edema. NEUROLOGIC: The patient was alert, awake and oriented to place, person and time. Head was normocephalic and pupils reactive to light. No sensory or motor deficit noted. DIAGNOSTIC TEST: Significant for an elevated WBC 16.9, hemoglobin was normal at 12.4, hematocrit 36.5 and platelet count was 327. PT and PTT was normal. Chemistry significant for hypokalemia with potassium 3.2 and sodium was 139, BUN 15 and creatinine 0.6. Normal liver enzymes. X-rays of the elbow showed suspected acute nondisplaced fracture of the proximal ulna and possibility of the fracture of the distal humerus. Hip, pelvis and wrist x-rays were negative for fractures. ASSESSMENT: 1. An 86-year-old female with history of fall and right elbow fracture. 2. Leukocytosis possibly secondary to trauma, must rule out infection. 3. Hypokalemia. 4. Hypertension. 5. Coronary artery disease. PLAN OF TREATMENT: The patient was admitted to Med/Surg floor. Orthopedist were called and consult. The patient was treated with pain medication, morphine IV as needed. The patient will have CT scan of elbow for better evaluation of her fractured area. We will continue her chronic medications Lipitor, metoprolol and Losartan. The patient will have CBC and electrolytes repeated tomorrow. Magali Beckham MD [facility]
--- NOTE | 2017-03-30 10:44 | RAD ---
HISTORY: abnormal CXR COMPARISON: 03/29/[address] chest 02/02/2017 TECHNIQUE: Chest PA and lateral FINDINGS: LUNGS: The prior left retrocardiac opacity is less conspicuous on this exam. The minimal increased opacity near the left costophrenic angle is similar to the CT chest court magistrate image of 02/02/2017. . Left inferolateral pleural parenchymal postinflammatory changes are consistent with this. No interval pulmonary pathology suggested PLEURA: No significant pleural effusion identified. No pneumothorax apparent. CARDIOVASCULAR: Mild cardiomegaly- left ventricular enlargement configuration. Atherosclerotic aortic knob calcification as before no suspect pulmonary vascular congestion. OSSEOUS STRUCTURES: Mild scoliosis -unchanged. Bilateral shoulder arthrosis -unchanged VISUALIZED UPPER ABDOMEN: Normal. OTHER FINDINGS: None. IMPRESSION: No active disease. Chronic changes
--- NOTE | 2017-03-30 12:41 | CT ---
PROCEDURE: CT of the right elbow without contrast HISTORY: rule out elbow fx dislocation COMPARISON: Plain films same day TECHNIQUE: CT of the right elbow was performed in the axial plane with sagittal and coronal reconstructions. FINDINGS: There is no evidence of fracture or joint effusion. There is a small exostosis projecting anteriorly in the distal humerus. This can be seen on image 38 series [id number]. IMPRESSION: No evidence of elbow fracture or dislocation
[2017-03-30] MEDS: Potassium Chloride 20 mEq ER Tab PO SCH (17:29)
--- NOTE | 2017-03-31 00:27 | PN ---
DATE: SUBJECTIVE: The patient was admitted for right elbow fracture complaining of some pain which is released with Morphine. She denies any abdominal pain but does not have appetite and had some nausea day before. PHYSICAL EXAMINATION VITAL SIGNS: This morning temperature 98.6, .pulse 72, blood pressure 140/67, and respiratory rate 18. GENERAL: She is alert, awake and oriented. HEENT: Head is normocephalic, atraumatic. Oral mucosa is moist. NECK: Supple. LUNGS: With decreased breath sounds, but no rales or wheezing. HEART: Regular rhythm and rate. ABDOMEN: Soft, nontender, nondistended. EXTREMITIES: With tenderness of the right elbow. The patient has small cast distal and fingers are warm. Lower extremities with no edema. DIAGNOSTIC TESTS: CBC significant for elevated WBC of 18.6, hemoglobin stable 11.2, hematocrit 34.8. Her chemistry stable with borderline lower potassium 3.4. CT of the upper extremity yesterday showed no evidence of elbow fracture or dislocation. ASSESSMENT: 1. Right elbow contusion possible fracture, however, negative CT scan of the arm. 2. Persistent leukocytosis with uncertain etiology must rule out urinary tract infection possible abdominal source of diverticulitis. 3. Hypertension. 4. Hypokalemia. PLAN OF TREATMENT: We will continue pain medications, continue sling for her right arm. We will start physical therapy. We will discuss with orthopedist further management. Urinalysis and urine culture were ordered. Also chest x-ray for evaluation of possible source of infection. The patient will need to have physical therapy evaluation, possible referral for subacute rehab. Magali Beckham MD [facility]
[2017-03-31 08:07] LABS: HEMATOCRIT 34.7 % (36.0-48.0); MEAN CORPUSCULAR HEMOGLOBIN 28.6 pg (25.0-35.0); MEAN CORPUSCULAR HGB CONC 32.9 g/dl (31.0-37.0); MEAN PLATELET VOLUME 9.8 fl (7.0-11.0); WHITE BLOOD COUNT 20.5 10^3/ul (4.5-11.0)
[2017-03-31 08:25] LABS: URINE BILIRUBIN NEGATIVE (NEGATIVE); URINE BLOOD LARGE (NEGATIVE); URINE GLUCOSE (UA) NEGATIVE (NEGATIVE); URINE KETONE TRACE mg/dL (NEGATIVE); URINE LEUKOCYTE ESTERASE NEGATIVE Leu/uL (NEGATIVE); URINE PROTEIN 30 mg/dL (<30 mg/dL); URINE UROBILINOGEN 0.2 E.U./dL (<1 E.U./dL)
[2017-03-31 08:27] LABS: ALKALINE PHOSPHATASE 124 U/L (38-133); ALT/SGPT 26 U/L (7-56); AST/SGOT 23 U/L (15-39); BLOOD UREA NITROGEN 17 mg/dL (7-21); CALCIUM 8.8 mg/dL (8.4-10.5); CARBON DIOXIDE 29 mmol/L (21-33); CHLORIDE 98 mmol/L (98-107); GFR AFRICAN-AMERICAN > 60; GLUCOSE,RANDOM 118 mg/dL (70-110); POTASSIUM 3.6 mmol/L (3.6-5.0); SODIUM 136 mmol/L (132-148); TOTAL PROTEIN 6.7 g/dL (5.8-8.3)
[2017-03-31 08:43] LABS: URINE APPEARANCE SL CLOUDY (CLEAR); URINE COLOR DARK YELLOW (YELLOW)
[2017-03-31 08:45] LABS: URINE BACTERIA FEW (NEG); URINE WBC 0 - 2 /hpf (0-6)
[2017-03-31] MEDS ORDERED: cefTRIAXone 1 gm 1 GM/100 ML BAG IVPB SCH (10:00)
[2017-03-31] MEDS: Potassium Chloride 20 mEq ER Tab PO SCH (11:02)
[2017-03-31] MEDS: Morphine 2 mg/ml ISec IVP PRN (11:07)
[2017-03-31 13:06] LABS: URINE BILIRUBIN SMALL (NEGATIVE); URINE BLOOD MODERATE (NEGATIVE); URINE GLUCOSE (UA) NEGATIVE (NEGATIVE); URINE KETONE 15 mg/dL (NEGATIVE); URINE LEUKOCYTE ESTERASE NEGATIVE Leu/uL (NEGATIVE); URINE PROTEIN 100 mg/dL (<30 mg/dL); URINE UROBILINOGEN 0.2 E.U./dL (<1 E.U./dL)
--- NOTE | 2017-03-31 13:09 | CT ---
PROCEDURE: CT of the right upper extremity without contrast HISTORY: wrist sprain/contusion rule out fracture COMPARISON: TECHNIQUE: CT of the right wrist was performed with the arm lying on the patient's stomach. Coronal and sagittal reconstructions were performed. FINDINGS: Study shows degenerative changes at the base of the thumb involving greater multangular. There is no evidence of fracture or dislocation. The remaining carpal bones are unremarkable IMPRESSION: Degenerative changes at the base of the thumb. No evidence of acute fracture
[2017-03-31 13:15] LABS: URINE COLOR YELLOW (YELLOW)
[2017-03-31 13:18] LABS: URINE APPEARANCE CLEAR (CLEAR)
[2017-03-31 13:19] LABS: URINE BACTERIA FEW (NEG)
--- NOTE | 2017-04-01 00:16 | CON ---
The patient is in room 576, bed 2. DATE: 03/31/2017 CHIEF COMPLAINT: Fall, x1 day duration. HISTORY OF PRESENT ILLNESS: This is an 86-year-old white female with hypertension, history of kidney stones, history of cataract, coronary artery disease, sinusitis, TIA, anxiety, depression, history of left foot infection, who has had cardiac catheterization with stent placement, who has had gastric polyp biopsy and hip surgery, who is admitted after a fall and found to have an elevated white count, infectious disease consultation requested and the patient denies any chills, she is having low grade fevers. No chest pain, she has had pain in her right arm and generalized aches and pains, no diarrhea or constipation. PAST MEDICAL HISTORY: Significant for hypertension, coronary artery disease, kidney disease and cataract,TIA, sinusitis, anxiety, depression and left foot infection. PAST SURGICAL HISTORY: Significant for left breast lumpectomy, cholecystectomy, pancreectomy of the tail of the pancreas, left hip surgery, gastric polyp surgery and cardiac catheterization with stent placement. ALLERGIES: THE PATIENT IS ALLERGIC TO LACTOSE AND VEGETABLES. MEDICATIONS AT HOME: Include the patient to have Norvasc, Ultram, potassium, Paroxetine, Lopressor, losartan, hydrochlorothiazide, Neurontin and Plavix. PHYSICAL EXAMINATION: GENERAL: The patient in bed. VITAL SIGNS: Temperature of 99.9, respiratory rate of 20, heart rate of 67, blood pressure is 157/53. HEENT: Unremarkable. NECK: Supple. LUNGS: Decreased breath sounds. HEART: Normal S1 and S2. ABDOMEN: Soft and nontender. No organomegaly, no rebound, no guarding. EXTREMITIES: The patient has a right thigh ecchymosis and no evidence of any laceration of the right elbow. LABORATORY DATA: Reveals the patient's white count of 16,900, hemoglobin of 12, platelets of 327 and 78% granulocytosis. INR is 1. Chemistries reveals a BUN of 15, creatinine of 0.6, glucose is 127, procalcitonin is 0.14 and the BNP is 4420. Urinalysis is 0-2 WBCs, few bacteria, trace ketones and large blood. ASSESSMENT AND PLAN: This is an 86-year-old female with hypertension, coronary artery disease, kidney stone, cataract, transient ischemic attack, sinusitis, anxiety, depression. 1. Leucocytosis with right thigh ecchymosis, mostly related to gastrointestinal pathology. The patient is awake and alert and clinically non-toxic. antibiotics and the right thigh ecchymosis/hematoma probably not enough to cause leucocytosis, will check on her blood cultures, urine cultures, and we will order a CAT scan at the abdomen and pelvis. We will order and echocardiogram. She has had an echocardiogram in 2012 with good ejection fraction and will make further recommendation upon availability and follow with you cultures and CAT scan results and no antibiotics at this time. Brandan Nguyen MD
--- NOTE | 2017-04-01 00:26 | PN ---
SUBJECTIVE: The patient continues with right elbow and wrist pain. She has difficulty of getting up on her own. The patient complains of decrease of appetite and mouth dryness. She denies any abdominal pain, but states that she has lose stools for the past 3 weeks since colonoscopy. PHYSICAL EXAMINATION: GENERAL: The patient is lying in bed in no acute distress. VITAL SIGNS: This morning, temperature 98.9, pulse 60, blood pressure 143/73, respiratory rate 18. HEENT: Head is normocephalic, atraumatic. Oral mucosa dry. NECK: Supple. LUNGS: Clear to auscultation. HEART: Regular rhythm. II/ murmur heard in the base. ABDOMEN: Soft, nontender, nondistended. EXTREMITIES: Significant for limitation of motion of right arm and forearm. Tenderness on palpation of lateral and epicondyle area and right distal forearm and wrist with significant swelling. Pulses are palpable. Lower extremities with no edema. LABORATORY DATA: CBC with increase of WBC to 20,000 this morning, hemoglobin stable 11.4, hematocrit 34.7, platelet count 285,000. Chemistry with normal electrolytes. Random glucose 118. Her procalcitonin is negative. CT scan of right elbow yesterday was negative for fracture. Repeated chest x-ray showed chronic changes. No acute infiltration. ASSESSMENT: 1. Status post fall with right elbow contusion and sprain and right wrist sprain. 2. Persistent leukocytosis with uncertain etiology, must rule out infection, possibly urinary tract infection, must consider diverticulitis and Clostridium difficile colitis. 3. Severe deconditioning due to fall. 4. Hypertension. 5. Coronary artery disease. PLAN OF TREATMENT: We will do blood and urine culture. We will also check stool for Clostridium difficile and toxins and antigen. Infectious disease specialist will be called on consult. CT scan of the right wrist will be ordered for reevaluation to rule out possible fracture. Physical therapy for evaluation and treatment. We will continue pain medication. Magali Beckham MD [facility]
[2017-04-01] MEDS ORDERED: Barium Sulfate Susp 2.1% w/v, 2.0% w/w 450 mL Bottle PO ONE (06:40)
[2017-04-01 07:00] LABS: HEMATOCRIT 34.1 % (36.0-48.0); MEAN CELL VOLUME 86.5 fL (80.0-105.0); MEAN CORPUSCULAR HEMOGLOBIN 28.4 pg (25.0-35.0); MEAN CORPUSCULAR HGB CONC 32.8 g/dl (31.0-37.0); MEAN PLATELET VOLUME 9.7 fl (7.0-11.0); RED CELL DISTRIBUTION WIDTH 14.1 % (11.5-14.5); WHITE BLOOD COUNT 16.1 10^3/ul (4.5-11.0)
[2017-04-01 07:15] LABS: ALB/GLOB RATIO 1.1 (1.1-1.8); ALKALINE PHOSPHATASE 127 U/L (38-133); ALT/SGPT 29 U/L (7-56); AST/SGOT 25 U/L (15-39); BILIRUBIN,TOTAL 0.8 mg/dL (0.2-1.3); BLOOD UREA NITROGEN 17 mg/dL (7-21); CALCIUM 8.9 mg/dL (8.4-10.5); CARBON DIOXIDE 29 mmol/L (21-33); CHLORIDE 99 mmol/L (95-110); GFR AFRICAN-AMERICAN > 60; GLUCOSE,RANDOM 122 mg/dL (70-110); POTASSIUM 4.2 mmol/L (3.6-5.0); SODIUM 136 mmol/L (132-148); TOTAL PROTEIN 6.7 g/dL (5.8-8.3)
--- NOTE | 2017-04-01 10:46 | CT ---
PROCEDURE: CT Abdomen and Pelvis without intravenous contrast HISTORY: wbc of 20k s/p fall COMPARISON: 01/25/2017. TECHNIQUE: Technique. Contrast Dose: Radiation dose: Total exam DLP = 807 mGy-cm. This CT exam was performed using one or more of the following dose reduction techniques: Automated exposure control, adjustment of the mA and/or kV according to patient size, and/or use of iterative reconstruction technique. FINDINGS: LOWER THORAX: Unremarkable. LIVER: Unremarkable. No gross lesion or ductal dilatation. GALLBLADDER AND BILE DUCTS: Unremarkable. PANCREAS: Stable roughly 4 centimeter partly calcified cystic lesion in the pancreatic tail.. No gross lesion or ductal dilatation. SPLEEN: Unremarkable. ADRENALS: Unremarkable. No mass. KIDNEYS AND URETERS: Unremarkable. No hydronephrosis. No solid mass. VASCULATURE: Unremarkable. No aortic aneurysm. BOWEL: Unremarkable. No obstruction. No gross mural thickening. APPENDIX: Unremarkable. Normal appendix. PERITONEUM: Unremarkable. No free fluid. No free air. LYMPH NODES: Unremarkable. No enlarged lymph nodes. BLADDER: Unremarkable. REPRODUCTIVE: Hysterectomy. BONES: No acute fracture. OTHER FINDINGS: None. IMPRESSION: No acute fracture. No significant interval change.
[2017-04-01] MEDS: Potassium Chloride 20 mEq ER Tab PO SCH (11:22)
--- NOTE | 2017-04-01 12:01 | PN ---
DATE: 04/01/2017 SUBJECTIVE: The patient is seen in 576, bed #2. She has low-grade fevers. She is awake and alert. She is doing well. PHYSICAL EXAMINATION: VITAL SIGNS: Temperature is 99, blood pressure is 120/80, respiratory rate of 16, heart rate of 83. HEENT: Unremarkable. NECK: Supple. LUNGS: Decreased breath sounds bilaterally. HEART: Normal S1 and S2. ABDOMEN: Soft and nontender. LABORATORY DATA: Reveals the white count is down to 16,100; hemoglobin of 11, and the platelets of 317. Chemistries reveal the BUN of 17, creatinine of 0.6, procalcitonin is 0.14, random glucose is 122, BMP is 4420. Urinalysis is unremarkable. Microbiology is pending and the patient had a CAT scan of the abdomen and pelvis, results are pending. Review of orders reveals the patient to be on no antibiotics. Echo results are pending. CAT scan of the abdomen results are pending. Blood cultures and urine cultures are pending. Stool for C. diff is pending, although she is not having any diarrhea at this time. ASSESSMENT AND PLAN: This is an 86-year-old female with hypertension, kidney stones, history of cataract, coronary artery disease, sinusitis, transient ischemic attack, anxiety, depression, history of a left foot infection, history of cardiac catheterization with stent placement and gastric polyps and biopsy and hip surgery leukocytosis, which appears to be improving. Currently off of antibiotics, nontoxic, and we will check on the blood and urine cultures. We will check on the CAT scan results and echo results and we will make further recommendations. note from yesterday is noted and reviewed. We will follow closely with you. Brandan Nguyen MD
[2017-04-01] MEDS: Morphine 2 mg/ml ISec IVP PRN ×2 (15:13→20:59)
--- NOTE | 2017-04-01 16:46 | CARD ---
APPROVED REPORT EXAM: Two-dimensional and M-mode echocardiogram with Doppler and color Doppler. INDICATION Congestive Heart Failure 2D DIMENSIONS Left Atrium (2D)3.6 (1.6-4.0cm)IVSd1.1 (0.7-1.1cm) LVDd4.2 (3.9-5.9cm)LVOT Diameter2.0 (1.8-2.4cm) PWd1.2 (0.7-1.1cm)LVDs2.8 (2.5-4.0cm) FS (%) 34.2 %LVEF (%)63.6 (>50%) M-Mode DIMENSIONS Aortic Root3.00 (2.2-3.7cm)Aortic Cusp Exc.1.40 (1.5-2.0cm) Aortic Valve AoV Peak Qbhirqfz126.0cm/sAoV VTI46.8cmAO Peak GR.26mmHg LVOT Peak Hytfmwvk51.2cm/sLVOT VTI21.20cmAO Mean GR.11mmHg YESSICA (VMAX)1.99ry0HXH (VTI)1.42cm2 Mitral Valve MV E Bmmjnplj76.0cm/sMV A Chpdmnxq79.3cm/sE/A ratio0.8 TDI Lateral E' Peak V4.97cm/sMedial E' Peak V5.17cm/sE/Lateral E'15.7 E/Medial E'15.1 Pulmonary Valve PV Peak Wklwvyab84.4cm/sPV Peak Grad.3mmHg Tricuspid Valve TR Peak Wknkvkcc572vu/sRAP VGUFYSZA60lrLqAF Peak Gr.49mmHg [id number] LEFT VENTRICLE The left ventricle is normal size. There is normal left ventricular wall thickness. The left ventricular ejection fraction is within the normal range. There is a flattened septum Transmitral Doppler flow pattern is Grade I-abnormal relaxation pattern. RIGHT VENTRICLE The right ventricle is normal size. There is normal right ventricular wall thickness. RV Systolic function is mildly reduced. ATRIA The left atrium size is normal. The right atrium is mildly dilated. AORTIC VALVE The aortic valve is moderately sclerotic. MITRAL VALVE The mitral valve is mildly thickened. There is no mitral valve regurgitation noted. TRICUSPID VALVE There is moderate tricuspid regurgitation. There is moderate pulmonary hypertension. GREAT VESSELS The aortic root is normal in size. The IVC is normal in size and collapses >50% with inspiration. PERICARDIAL EFFUSION There is a trace loculated anterior pericardial effusion. <Conclusion> The left ventricle is normal size. There is normal left ventricular wall thickness. The left ventricular ejection fraction is within the normal range. There is a flattened septum Transmitral Doppler flow pattern is Grade I-abnormal relaxation pattern. RV Systolic function is mildly reduced. There is moderate pulmonary hypertension. The aortic valve is moderately sclerotic.
--- NOTE | 2017-04-02 06:26 | HP ---
HISTORY OF PRESENT ILLNESS: The patient admitted earlier on in the week and we are covering for Dr Rodriguez for today. The patient is seen on rounds. She is bed bound at the moment and was sleeping, so she is slightly groggy on awakening, but is able to answer our questions appropriately and offers no major complaints. She has a right elbow strap in place and has some right wrist pain. Her admission was for a fall after a right elbow contusion and sprain and right wrist sprain both were suspected to harbor a fracture, but consultation with the orthopedist prove this is not the case. Nevertheless, the patient is incapacitated as she cannot feed herself as she is right dominant. She has no major complaints. There was a certain smell on approaching the bed and when we asked her she does admit to having some loose stools "not sure if she soiled herself" as when the urge come sometimes she cannot tell whether she is having the bowel movements or not. On review of the prior days orders, there is a pending culture for C. diff. She was admitted because of unexplained leukocytosis and while there was a negative procalcitonin, consult with Dr. Nguyen the infectious disease specialist did recommend an echocardiogram and other tests that are pending. PAST MEDICAL HISTORY: On the patient was remarkable for recent increased fragility, coronary artery disease, essential hypertension, mixed hyperlipidemia, osteoporosis and history of a pancreatic cyst and underlying anxiety. 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 In 2014, she fell and she is status post ORIF of the left hip. In 2012, she underwent cardiac cath and had stenting of the left coronary artery. ALLERGIES: THE PATIENT IS ALLERGIC TO LACTOSE, BUT NONE TO MEDICATIONS. CURRENT MEDICATIONS: Reviewed and have been reconciled as per office and ED records She is currently on no antibiotic and there was no current history of antibiotic use in her outpatient history. SOCIAL HISTORY: Remarkable for prior smoker. At present, does not smoke or drink or use any drugs. She lives alone. She was ambulatory, but at the moment with a sprained wrist and elbow, it is very difficult to note her as stable to ambulate with even a walker. REVIEW OF SYSTEMS: She is alert and oriented, but appears a little lost as to the time. There has recently been noted some weight loss, but there have been no fevers and no evidence of any infections. No cough, dyspnea, and the only remotely concerning history is that of the loose stools may be four to five. She does account that they are not more than five in the last few days. PHYSICAL EXAMINATION: GENERAL: Seen at bedside. Apparently oriented to person and place. Time, is not as evident. VITAL SIGNS: Bedside temperature 98.5, pulse rate of 65, blood pressure 128/65, respiratory rate of 18 and O2 sat at 96%. There have been no documentation of the number of stools, so we will take the patient's note of less than 5. HEENT: Oral mucosa is moist. Pupils are equally round and reactive to light and accommodation. Extraocular movement is intact. Nares showed no discharge. NECK: Supple. No palpable bruit. No lymphadenopathy. HEART: Regular in rhythm. No S3 appreciated. Slightly distant. LUNGS: Clear to auscultation and percussion. ABDOMEN: Soft. Bowel sounds are present, nondistended. No rebounds. EXTREMITIES: Again, her right arm is in a sling with a wrap around her right wrist and her right elbow. Note from Dr. Floyd and Dr. Nguyen are appreciated pending CAT scan that was ordered by Dr. Nguyen, pending echocardiogram that was requested by Dr. Nguyen. LABORATORY DATA: The morning labs show random glucose of 122. Her WBCs have dropped to 16,100 from 20,000 of yesterday. H&H are acceptable 11.2 and 34.1 respectively and there are no other available results when we are looking at her this morning. IMPRESSION: Leukocytosis, etiology possibly Clostridium difficile colitis as there is no other evidence of an infection to account for the 20,000 WBC on admission. Secondary diagnosis is sprain of the right elbow in a right dominant osteoporotic female. Secondary diagnosis is sprain of right wrist in an osteoporotic individual. Secondary diagnosis hypertension. PLAN OF CARE: Await for the labs. Consider rehab placement as she is a candidate for little longer rehabilitation and we will continue to monitor her. Hill Cole MD [facility]
[2017-04-02] MEDS: Potassium Chloride 20 mEq ER Tab PO SCH (09:45)
[2017-04-02 09:48] LABS: HEMATOCRIT 35.7 % (36.0-48.0); MEAN CELL VOLUME 87.5 fL (80.0-105.0); MEAN CORPUSCULAR HEMOGLOBIN 28.2 pg (25.0-35.0); MEAN CORPUSCULAR HGB CONC 32.2 g/dl (31.0-37.0); MEAN PLATELET VOLUME 9.6 fl (7.0-11.0); RED CELL DISTRIBUTION WIDTH 14.3 % (11.5-14.5)
[2017-04-02 10:08] LABS: ALB/GLOB RATIO 1.1 (1.1-1.8); ALKALINE PHOSPHATASE 112 U/L (38-133); ALT/SGPT 27 U/L (7-56); AST/SGOT 20 U/L (15-39); BILIRUBIN,TOTAL 0.7 mg/dL (0.2-1.3); BLOOD UREA NITROGEN 18 mg/dL (7-21); CALCIUM 8.9 mg/dL (8.4-10.5); CARBON DIOXIDE 26 mmol/L (21-33); CHLORIDE 98 mmol/L (95-110); GFR AFRICAN-AMERICAN > 60; GLUCOSE,RANDOM 225 mg/dL (70-110); POTASSIUM 3.3 mmol/L (3.6-5.0); SODIUM 136 mmol/L (132-148)
[2017-04-02] MEDS: Vancomycin 25 MG/ML PO SCH ×4 (10:45→21:41)
--- NOTE | 2017-04-02 13:13 | PN ---
SUBJECTIVE: The patient is feeling better. The patient denies any abdominal pain. Her appetite improved. She was diagnosed with pseudomembranous colitis yesterday and started metronidazole treatment . She continues with some right elbow and wrist pain, but she also feels better. PHYSICAL EXAMINATION GENERAL: The patient is sitting in reclining chair, alert, awake and oriented. VITAL SIGNS: Temperature 98.4, pulse 75 and regular, blood pressure 141/70, respiratory rate 20. HEENT: Head, normocephalic and atraumatic. Oral mucosa is moist. NECK: Supple. LUNGS: Clear to auscultation. HEART: Regular rhythm and rate. ABDOMEN: Soft, nontender and nondistended. EXTREMITIES: Right upper extremity with some tenderness around the elbow area and right thumb area. The patient is able to flex her wrist. DIAGNOSTIC TESTS: CBC is significant for trough of WBC at this morning 12,000, hemoglobin 11.5, hematocrit 35.7, platelet count 377. Chemistries are normal. The patient had stool positive for C. diff antigen and toxins. Her urine culture showed some gram-negative rods, 10,000 to 50,000 and some gram-positive cocci, results are still preliminary. ASSESSMENT: 1. Pseudomembranous colitis. 2. Right elbow contusion and right wrist pain secondary to fall. 3. Severe deconditioning due to fall. 4. Hypertension. 5. Coronary artery disease. PLAN OF TREATMENT: We will start vancomycin p.o. as per ID recommendation. We will avoid morphine due to confusion. The patient will be started on Tylenol as needed. Continue current medications. Follow up her final urine culture to establish antibiotic for her UTI if necessary. Magali Beckham MD MTDD
--- NOTE | 2017-04-02 13:37 | PN ---
DATE: 04/02/2017 SUBJECTIVE: The patient is seen earlier this morning in 576. PHYSICAL EXAMINATION: VITAL SIGNS: Temperature is 98, blood pressure is 140/70, respiratory rate of 20, and heart rate of 75. HEENT: Unremarkable. NECK: Supple. LUNGS: Decreased breath sounds. HEART: Normal S1 and S2. ABDOMEN: Soft and nontender. LABORATORY DATA: Reveals the blood cultures are no growth at 24 hours and stool C. diff antigen and toxin are both positive and the urine cultures have gram negative trish and a gram positive cocci, low count of 10,000 to 50,000 and patient's white count 16, 000 and procalcitonin 0.14 and urinalysis has only 1-3 WBC's. Review of orders reveals the patient to be on p.o. Flagyl. ASSESSMENT AND PLAN: This is an 86-year-old female with hypertension, kidney stones, history of cataract, history of coronary artery disease, sinusitis, transient ischemic attack, anxiety, depression, history of left foot infection and cardiac catheterization with stent placement, gastric polyps and leukocytosis, currently now with pseudomembranous colitis. We will treat with p.o. vancomycin and discontinue p.o. Flagyl. We will follow the WBC count. We will follow closely with you. The gram negative trish and the gram positive cocci in the urine probably are colonized with normal WBC's in the urine, not a pathogen. The patient did have CAT scan of the abdomen and pelvis, which is reported to be unremarkable. Brandan Nguyen MD
[2017-04-03 07:52] LABS: MEAN CELL VOLUME 86.3 fL (80.0-105.0); MEAN CORPUSCULAR HGB CONC 32.5 g/dl (31.0-37.0); RED CELL DISTRIBUTION WIDTH 14.2 % (11.5-14.5); WHITE BLOOD COUNT 11.4 10^3/ul (4.5-11.0)
[2017-04-03 07:58] LABS: HEMATOCRIT 31.4 % (36.0-48.0)
[2017-04-03 08:12] LABS: ALB/GLOB RATIO 1.1 (1.1-1.8); ALKALINE PHOSPHATASE 103 U/L (38-133); ALT/SGPT 31 U/L (7-56); AST/SGOT 19 U/L (15-39); BILIRUBIN,TOTAL 0.6 mg/dL (0.2-1.3); BLOOD UREA NITROGEN 17 mg/dL (7-21); CALCIUM 8.8 mg/dL (8.4-10.5); CARBON DIOXIDE 27 mmol/L (21-33); CHLORIDE 102 mmol/L (95-110); GFR AFRICAN-AMERICAN > 60; GLUCOSE,RANDOM 105 mg/dL (70-110); POTASSIUM 4.3 mmol/L (3.6-5.0); SODIUM 136 mmol/L (132-148); TOTAL PROTEIN 6.4 g/dL (5.8-8.3)
[2017-04-03] MEDS: Vancomycin 25 MG/ML PO SCH ×4 (10:53→21:31)
[2017-04-03] MEDS: Potassium Chloride 20 mEq ER Tab PO SCH (10:54)
--- NOTE | 2017-04-03 11:37 | PN ---
DATE: 04/03/2017 SUBJECTIVE: The patient is seen in bed, in no acute distress, nontoxic. PHYSICAL EXAMINATION VITAL SIGNS: Temperature is 98, blood pressure is 109/50, respiratory rate of 16. HEENT: Examination of HEENT is unremarkable. NECK: Supple. LUNGS: Have decreased breath sound. HEART: Normal S1, S2. ABDOMEN: Soft and nontender. LABORATORY DATA: Examination reveals a white count of 11,000, hemoglobin of 10. Chemistries reveals a BUN of 17, creatinine of 0.6, procalcitonin 0.14, urinalysis is noted. Microbiology reveals that blood cultures have no growth. The urine cultures have gram negative trish, gram positive cocci. The stool for C. diff is positive antigen and toxin. Review of orders reveal that patient could be on p.o. vancomycin. ASSESSMENT AND PLAN: This is an 86-year-old female with hypertension, kidney stones, history of cataract, history of coronary artery disease, sinusitis, transient ischemic attack, anxiety, depression, left foot infection, cardiac catheterization, and stent placement, gastric polyps, admitted with pseudomembranous colitis. No diarrhea in the last 12-24 hours, she states and currently on p.o. vancomycin, tolerating and overall improving. The urine culture is colonized and not requiring treatment, complete with p.o. vancomycin treatment. Brandan Nguyen MD
--- NOTE | 2017-04-03 13:24 | PN ---
DATE: SUBJECTIVE: The patient was admitted for right elbow sprain after severe fall, fracture was ruled out. During hospitalization she developed leukocytosis. Her septic workup showed stool positive for Clostridium difficile antigen and toxins and urinary tract infection with Klebsiella pneumoniae. The patient is doing well. She denies any abdominal pain. Denies diarrhea. Appetite improved. The patient continues with some discomfort of her right arm and right elbow. PHYSICAL EXAMINATION: GENERAL: The patient is sitting in a reclining chair, alert, awake, and oriented. VITAL SIGNS: Temperature 98.4, pulse 71 and regular, blood pressure 148/79, and respiratory rate 20. HEENT: Head is normocephalic and atraumatic. Oral mucosa is moist. NECK: Supple. HEART: Regular rhythm and rate. LUNGS: Clear to auscultation. ABDOMEN: Soft, nontender, and nondistended. EXTREMITIES: No edema. The right upper extremity is in the sling and tenderness of the right lateral elbow. Able to move right wrist pulses are palpable. DIAGNOSTIC TESTS: CBC today showed improvement in trending down WBC, WBC this morning at 11.4, hemoglobin 10.2, hematocrit 31.4, and platelet count 170. Chemistry normal this morning. Urine culture showed Gram negative colony with Klebsiella pneumoniae and Gram positive cocci, final reports are pending. ASSESSMENT: 1. Pseudomembranous colitis. 2. Right elbow and wrist contusion secondary to fall. 3. Urinary tract infection with positive Klebsiella pneumoniae. 4. Hypertension. 5. Severe deconditioning due to fall. 6. Coronary artery disease. PLAN OF TREATMENT: The patient will be maintained on vancomycin for colitis. We will follow final urine culture with port and we will discuss possible antibiotic coverage if necessary with Infectious Disease specialist. Continue Tylenol p.o. for pain. Continue physical therapy. Possibly transfer to subacute tomorrow. Magali Beckham MD [facility]
[2017-04-04 07:37] LABS: HEMATOCRIT 30.2 % (36.0-48.0); MEAN CELL VOLUME 87.3 fL (80.0-105.0); MEAN CORPUSCULAR HEMOGLOBIN 28.3 pg (25.0-35.0); MEAN CORPUSCULAR HGB CONC 32.5 g/dl (31.0-37.0); MEAN PLATELET VOLUME 8.9 fl (7.0-11.0); RED CELL DISTRIBUTION WIDTH 14.4 % (11.5-14.5); WHITE BLOOD COUNT 11.7 10^3/ul (4.5-11.0)
[2017-04-04 07:46] LABS: ALKALINE PHOSPHATASE 92 U/L (38-133); ALT/SGPT 24 U/L (7-56); AST/SGOT 24 U/L (15-39); BILIRUBIN,TOTAL 0.5 mg/dL (0.2-1.3); BLOOD UREA NITROGEN 18 mg/dL (7-21); CARBON DIOXIDE 28 mmol/L (21-33); CHLORIDE 106 mmol/L (95-110); GFR AFRICAN-AMERICAN > 60; GLUCOSE,RANDOM 103 mg/dL (70-110); POTASSIUM 5.1 mmol/L (3.6-5.0); SODIUM 141 mmol/L (132-148); TOTAL PROTEIN 6.3 g/dL (5.8-8.3)
[2017-04-04] MEDS: Potassium Chloride 20 mEq ER Tab PO SCH (08:40)
[2017-04-04] MEDS ORDERED: Morphine 2 mg/ml ISec IVP PRN (09:22)
[2017-04-04 09:34] VITALS: RESP 20; O2SAT 100
[2017-04-04] MEDS: Vancomycin 25 MG/ML PO SCH ×2 (12:01→15:39)
--- NOTE | 2017-04-04 12:05 | CP.PCM.PN ---
Subjective - Date & Time of Evaluation Date of Evaluation: 04/04/17 Time of Evaluation: 12:03 - Subjective Subjective: Pt states elbow pain is improved. RUE: sling d/c'd tolerating active flexion of elbow to 120 degrees mild swelling noted grossly NVI distally Activity as tolerated with RUE f/u as outpatient Objective - Vital Signs/Intake and Output Vital Signs (last 24 hours): Temp Pulse Resp BP Pulse Ox 98.5 F 62 20 112/61 100 04/04/17 08:00 04/04/17 08:00 04/04/17 08:00 04/04/17 11:14 04/04/17 08:00 Intake and Output: 04/04/17 04/04/17 06:59 18:59 Intake Total 120 Balance 120 - Medications Medications: Current Medications Acetaminophen (Tylenol 325mg Tab) 650 mg PO Q4H PRN PRN Reason: Pain, Mild (1-3) Last Admin: 04/03/17 21:34 Dose: 650 mg Amlodipine Besylate (Norvasc) 10 mg PO DAILY [facility] Last Admin: 04/04/17 11:14 Dose: 10 mg Aspirin (Ecotrin) 81 mg PO DAILY [facility] Last Admin: 04/04/17 11:14 Dose: 81 mg Atorvastatin Calcium (Lipitor) 40 mg PO DAILY [facility] Last Admin: 04/04/17 11:14 Dose: 40 mg Cholecalciferol (Vitamin D) 1,000 iu PO DAILY [facility] Last Admin: 04/04/17 11:16 Dose: 1,000 iu Metoprolol Tartrate (Lopressor) 25 mg PO BID [facility] Last Admin: 04/04/17 11:13 Dose: 25 mg Morphine Sulfate (Morphine) 1 mg IVP Q4H PRN PRN Reason: Pain, moderate (4-7) Potassium Chloride (K-Dur 20 Meq Er Tab) 20 meq PO BRK [facility] Last Admin: 04/04/17 08:40 Dose: 20 meq Vancomycin HCl (Vancocin 25 Mg/Ml (Oral Use)) 250 mg PO QID [facility] PRN Reason: Protocol Stop: 04/16/17 10:01 Last Admin: 04/03/17 21:31 Dose: 250 mg - Labs Labs: 04/04/17 07:20 04/04/17 07:20 PT 11.2 Seconds (9.9-11.8) 03/29/17 09:11 INR 1.04 (0.93-1.08) 03/29/17 09:11 APTT 27.4 Seconds (23.7-30.8) 03/29/17 09:11
--- NOTE | 2017-04-04 13:25 | PN ---
DATE: SUBJECTIVE: The patient is doing much better. Her right arm pain improved. She has good appetite. Denies any abdominal pain or diarrhea. PHYSICAL EXAMINATION VITAL SIGNS: Patient is afebrile, temperature 98.5, pulse 62, blood pressure 128/62, and respiratory rate 20. GENERAL: She is comfortable in bed, alert, awake, and oriented. HEENT: Head is normocephalic and atraumatic. Oral mucosa is moist. NECK: Supple. LUNGS: Clear to auscultation. HEART: Regular rhythm and rate. ABDOMEN: Soft, nontender, and nondistended. EXTREMITIES: The right upper extremities with some improvement of the right wrist movement and elbow movement. There is no tenderness of the right elbow. Lower extremities with no edema. DIAGNOSTIC TEST: CBC with WBC 11.7, hemoglobin 9.9, hematocrit 30.2 and platelet count 258. Chemistry with normal sodium, potassium 5.1. Renal function normal. Her vitamin D level is low 15.6. Her urine culture final came back with positive Klebsielleae pneumonia and enterococcus faecalis. ASSESSMENT: 1. Pseudomembranous colitis, clinically improved. 2. Urinary tract infection with Klebsiella pneumoniae and enterococcus faecalis in urine. 3. Right elbow contusion and right wrist sprain. 4. Hypertension. 5. Severe deconditioning due to fall. 6. Coronary artery disease. 7. Vitamin d deficiency. 8. Osteoporosis. PLAN OF TREATMENT: We will continue on oral vancomycin. We will discuss with infectious disease any coverage in treatment for urinary tract infection with two organisms. The patient is ready to transfer to subacute rehab for further treatment. May need IV antibiotic in subacute rehab if ordered by ID. Will continue present therapy, add vitamin D 50,000 units weekly to her therapy. Magali Beckham MD [facility]
--- NOTE | 2017-04-04 16:35 | CP.PCM.PN ---
Subjective - Date & Time of Evaluation Date of Evaluation: 04/04/17 Time of Evaluation: 10:50 - Subjective Subjective: Comfortable in bed, not in distress, no fevers overnight. Objective - Vital Signs/Intake and Output Vital Signs (last 24 hours): Temp Pulse Resp BP Pulse Ox 98.5 F 62 20 112/61 100 04/04/17 08:00 04/04/17 08:00 04/04/17 08:00 04/04/17 11:14 04/04/17 08:00 Intake and Output: 04/04/17 04/04/17 06:59 18:59 Intake Total 120 960 Balance 120 960 - Medications Medications: Current Medications Acetaminophen (Tylenol 325mg Tab) 650 mg PO Q4H PRN PRN Reason: Pain, Mild (1-3) Last Admin: 04/04/17 15:37 Dose: 650 mg Amlodipine Besylate (Norvasc) 10 mg PO DAILY [facility] Last Admin: 04/04/17 11:14 Dose: 10 mg Aspirin (Ecotrin) 81 mg PO DAILY [facility] Last Admin: 04/04/17 11:14 Dose: 81 mg Atorvastatin Calcium (Lipitor) 40 mg PO DAILY [facility] Last Admin: 04/04/17 11:14 Dose: 40 mg Cholecalciferol (Vitamin D) 1,000 iu PO DAILY [facility] Last Admin: 04/04/17 11:16 Dose: 1,000 iu Metoprolol Tartrate (Lopressor) 25 mg PO BID [facility] Last Admin: 04/04/17 11:13 Dose: 25 mg Morphine Sulfate (Morphine) 1 mg IVP Q4H PRN PRN Reason: Pain, moderate (4-7) Potassium Chloride (K-Dur 20 Meq Er Tab) 20 meq PO BRK [facility] Last Admin: 04/04/17 08:40 Dose: 20 meq Vancomycin HCl (Vancocin 25 Mg/Ml (Oral Use)) 250 mg PO QID [facility] PRN Reason: Protocol Stop: 04/16/17 10:01 Last Admin: 04/04/17 15:39 Dose: 250 mg - Labs Labs: 04/04/17 07:20 04/04/17 07:20 PT 11.2 Seconds (9.9-11.8) 03/29/17 09:11 INR 1.04 (0.93-1.08) 03/29/17 09:11 APTT 27.4 Seconds (23.7-30.8) 03/29/17 09:11 - Constitutional Appears: Non-toxic, No Acute Distress - Head Exam Head Exam: NORMAL INSPECTION - Respiratory Exam Respiratory Exam: Decreased Breath Sounds - Cardiovascular Exam Cardiovascular Exam: +S1, +S2 - GI/Abdominal Exam GI & Abdominal Exam: Soft. absent: Tenderness Assessment and Plan - Assessment and Plan (Free Text) Plan: Assessment C. diff. colitis, slowly improving Asymptomatic bacteriuria with Klebsiella and E. faecalis right elbow contusion after fall HTN history of kidney stones CAD S/P PCI history of gastric polyps history of TIA history of anxiety and depression history of left foot infection Plan Continue PO Vancomycin to complete 10-14 days of therapy
[2017-04-04 17:43] VITALS: BP 123/58; PULSE 68; TEMP 98.3
== END 2017-04-04 18:48 | DRG 563 ==
LOC: ED 06:32 → ERH 08:18 → 5RSO 11:18
PROVIDERS: ADMIT Family Medicine; ATTEND Family Medicine
PROC: 2W3CX1Z Immobilization of Right Lower Arm using Splint (ICD-10-PCS; principal; 2017-03-29)
DX: S63.501A Unspecified sprain of right wrist, initial encounter (principal); A04.7 Enterocolitis due to Clostridium difficile; K86.2 Cyst of pancreas; N39.0 Urinary tract infection, site not specified; S50.01XA Contusion of right elbow, initial encounter; I10 Essential (primary) hypertension; E78.2 Mixed hyperlipidemia; I25.10 Atherosclerotic heart disease of native coronary artery without angina pectoris; M81.0 Age-related osteoporosis without current pathological fracture; F41.9 Anxiety disorder, unspecified; E87.6 Hypokalemia; F32.9 Major depressive disorder, single episode, unspecified; J32.9 Chronic sinusitis, unspecified; N20.0 Calculus of kidney; K31.7 Polyp of stomach and duodenum; E55.9 Vitamin D deficiency, unspecified; B95.2 Enterococcus as the cause of diseases classified elsewhere; B96.1 Klebsiella pneumoniae [K. pneumoniae] as the cause of diseases classified elsewhere; W19.XXXA Unspecified fall, initial encounter; Y92.039 Unspecified place in apartment as the place of occurrence of the external cause; Z95.5 Presence of coronary angioplasty implant and graft; Z79.82 Long term (current) use of aspirin; Z86.73 Personal history of transient ischemic attack (TIA), and cerebral infarction without residual deficits

== ENCOUNTER 2017-11-23 18:44 | Emergency (ER) | payer MEDICARE ==
[2017-11-23 18:44] VITALS: BMI 28.3
[2017-11-23 18:59] VITALS: TEMP 98.1
--- NOTE | 2017-11-23 20:05 | ED PDOC ---
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 Patient denies eye trauma , contact lens use. Patient stated after developing Bailon palsy, her left eye lid does not completely closes. (Naga Rasheed) Past Medical History - Provider Review Nursing Documentation Reviewed: Yes - Infectious Disease Hx of Infectious Diseases: None - Tetanus Immunization Tetanus Immunization: Unknown - Cardiac Hx Cardiac Disorders: Yes ([place], [place]) Hx Hypertension: Yes - Pulmonary Hx Respiratory Disorders: Yes (SINUSITIS) - Neurological Hx Neurological Disorder: Yes Hx Dizziness: Yes (vertigo) Hx Transient Ischemic Attacks (TIA): Yes - HEENT Hx HEENT Disorder: Yes Hx Cataracts: Yes (WITH BILATERAL SURGERY) Other/Comment: glasses, acoustic neuroma - Renal Hx Renal Disorder: Yes Hx Kidney Stones: Yes (RIGHT SIDE) - Endocrine/Metabolic Hx Endocrine Disorders: No - Hematological/Oncological Hx Blood Disorders: (blood transfusion) - Integumentary Hx Dermatological Disorder: No - Musculoskeletal/Rheumatological Hx Musculoskeletal Disorders: Yes (CERVICAL) Hx Falls: Yes (03/2017) - Gastrointestinal Hx 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) Other/Comment: colonscopy/endoscopy - Genitourinary/Gynecological Hx Genitourinary Disorders: Yes (incontinent at times post op, starting to use bathroom with assist) - Psychiatric Hx Psychophysiologic Disorder: Yes Hx Anxiety: Yes Hx Substance Use: No - Surgical History Hx Cardiac Catheterization: Yes Hx Coronary Stent: Yes (08/2013) Hx Orthopedic Surgery: Yes (left femur) 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, cholecystectomy, cataract surgery, , left breast lumpectomy - Anesthesia Hx Anesthesia: Yes Hx Anesthesia Reactions: No Hx Malignant Hyperthermia: No - Suicidal Assessment Feels Threatened In Home Enviroment: No <Naga Rasheed - Last Filed: 11/23/17 21:12> Family/Social History - Physician Review Nursing Documentation Reviewed: Yes Family/Social History: Other (noncontributory) Smoking Status: Smoker Currrent Status Unknown Hx Alcohol Use: No Hx Substance Use: No Hx Substance Use Treatment: No <Naga Rasheed Raffaele - Last Filed: 11/23/17 21:12> Allergies/Home Meds <Tae Jansen - Last Filed: 11/23/17 20:23> <Naga Rasheed Raffaele - Last Filed: 11/23/17 21:12> Allergies/Adverse Reactions: Allergies lactose Allergy (Intermediate, Verified 11/23/17 18:46) VOMITING VEGETABLES Adverse Reaction (Intermediate, Uncoded 11/23/17 18:46) DIARRHEA/BLOATING PT COULD NOT BE SPECIFIC Home Medications: Home Meds Medication Instructions Recorded Confirmed Aspirin [Ecotrin] 81 mg PO QAM 01/24/17 09/27/17 Atorvastatin [Lipitor] 40 mg PO QPM 01/24/17 09/27/17 Gabapentin [Neurontin] 300 mg PO HS 01/24/17 09/27/17 Losartan/Hydrochlorothiazide 1 tab PO QAM 01/24/17 09/27/17 [Losartan-Hctz 100-12.5 mg Tab] Paroxetine HCl 40 mg PO QAM 01/24/17 09/27/17 Metoprolol Tartrate [Lopressor] 25 mg PO QPM 03/07/17 09/27/17 Tramadol HCl [Ultram] 50 mg PO PRN PRN 03/07/17 09/27/17 Review of Systems - Review of Systems Constitutional: Normal. absent: Fatigue, Weight Change, Fevers Eyes: Other (left eye redness, and discharge with burning sensation. Denies eye trauma) ENT: Normal Respiratory: Normal Cardiovascular: Normal Gastrointestinal: Normal Genitourinary Female: Normal Musculoskeletal: Normal Skin: Normal Neurological: Normal Endocrine: Normal Hemo/Lymphatic: Normal Psychiatric: Normal <Naga Rasheed Raffaele - Last Filed: 11/23/17 21:12> Physical Exam Temperature: Afebrile Blood Pressure: Normal Pulse: Regular Respiratory Rate: Normal Appearance: Positive for: Well-Appearing, Non-Toxic, Comfortable Pain Distress: None Mental Status: Positive for: Alert and Oriented X 3 - Systems Exam Head: Present: Atraumatic, Normocephalic Pupils: Present: PERRL, Other (No corneal abrasion or ulcer. no FB) Extroacular Muscles: Present: EOMI. No: Entrapment Conjunctiva: Present: Injected, Other (with trace of eye discharge) Mouth: Present: Moist Mucous Membranes Upper Extremity: Present: Normal Inspection, Normal ROM Lower Extremity: Present: Normal Inspection, Normal ROM Neurological: Present: GCS=15, CN II-XII Intact, Speech Normal Skin: Present: Warm, Dry, Normal Color. No: Rashes Psychiatric: Present: Alert, Oriented x 3, Normal Insight, Normal Concentration <Kylie Rasheedim P - Last Filed: 11/23/17 21:12> Vital Signs Temp Pulse Resp BP Pulse Ox 11/23/17 18:46 98.1 F 70 17 174/75 H 98 Medical Decision Making <Tae Jansen - Last Filed: 11/23/17 20:23> Re-evaluation Time: 21:06 Reassessment Condition: Re-examined, Improved <Kylie Rasheedim P - Last Filed: 11/23/17 21:12> ED Course and Treatment: 11/23/17 21:06 Re-evaluation. Patient feels better. Discussed results and plan with patient who expresses understanding. All questions answered and there is agreement with the plan to discharge home with instructions. Patient stable for discharge. Return if symptoms persist or worsen. (Rasheed,Nahim P) - Medication Orders Current Medication Orders: Discontinued Medications Acetaminophen (Tylenol 325mg Tab) 650 mg PO STAT STA Stop: 11/23/17 20:40 Last Admin: 11/23/17 20:52 Dose: 650 mg MAR Pain/Vitals Document 11/23/17 20:52 HI (Rec: 11/23/17 20:52 HI [id number]) Pain Reassessment Is This A Pain ReAssessment? No Erythromycin (Erythromycin) 1 applic OS ONCE ONE Stop: 11/23/17 20:39 Last Admin: 11/23/17 20:52 Dose: 1 applic - PA / [employer]EN ME[employer] GRADER / Resident Statement GERALD has reviewed & agrees with the documentation as recorded. GERALD has examined the patient and agrees with the treatment plan. <Tae Jansen - Last Filed: 11/23/17 20:23> Disposition/Present on Arrival <JustynaTae - Last Filed: 11/23/17 20:23> - Present on Arrival Any Indicators Present on Arrival: No History of DVT/PE: No History of Uncontrolled Diabetes: No Urinary Catheter: No History of Decub. Ulcer: No History Surgical Site Infection Following: None - Disposition Have Diagnosis and Disposition been Completed?: Yes Disposition Time: 21:06 Patient Plan: Discharge <Naga Rasheed - Last Filed: 11/23/17 21:12> - Disposition Diagnosis: Acute conjunctivitis Disposition: HOME/ ROUTINE Condition: GOOD Discharge Instructions (ExitCare): Conjunctivitis ([place]) (DC) Additional Instructions: Call private [employer] Performance [employer]st office for follow up visit in 1-2 days. Apply eye ointment at least 3 times a day. Becareful since eye ointment may block your vision, and you could fall down. Return to emergency if symptoms worsen. Prescriptions: Erythromycin 0.5% [Ilytocin] 1 applic OS TID #1 tube Referrals: Magali Beckham MD [Primary Care Provider] - Follow up with primary Tito Dyer MD [Staff Provider] - Follow up with primary Forms: [employer] (Ugandan)
[2017-11-23] MEDS ORDERED: Erythromycin 0.5% Ophth Oint 1 APPLIC/3.5 G OS ONE (20:38)
[2017-11-23 21:29] VITALS: BP 165/62; PULSE 80; RESP 18; O2SAT 99
== END 2017-11-23 21:29 | disposition home or self-care (01) ==
LOC: ED 18:44
DX: H10.12 Acute atopic conjunctivitis, left eye (principal); G51.0 Bell's palsy

== ENCOUNTER 2018-01-10 17:33 | Emergency (ER) | payer MEDICARE ==
[2018-01-10 17:39] VITALS: BMI 25.7
--- NOTE | 2018-01-10 17:43 | ED PDOC ---
Arrival/HPI - General Time Seen by Provider: 01/10/18 17:41 Historian: Patient - History of Present Illness Narrative History of Present Illness (Text): 01/10/18 17:41 87yo female with PMhx of reeves's palsy, hypertension bib the EMS for left facial swelling and left leg pain s/p trauma, minutes [employer]. States she unusually ambulates with a walker and tried to grab hold of walker when it was rolling from her, she missed it and fell. She hit her left forehead on the ground. Also report left lower leg pain s/p the trauma. She denies LOC, focal weakness, nausea, vomiting, dizziness, any other complaint. Past Medical History - Provider Review Nursing Documentation Reviewed: Yes - Infectious Disease Hx of Infectious Diseases: None - Tetanus Immunization Tetanus Immunization: Unknown - Cardiac Hx Cardiac Disorders: Yes ([place], [place]) Hx Hypertension: Yes - Pulmonary Hx Respiratory Disorders: Yes (S[place]USITIS) - Neurological Hx Neurological Disorder: Yes Hx Dizziness: Yes (vertigo) Hx Transient Ischemic Attacks (TIA): Yes - HEENT Hx HEENT Disorder: Yes Hx Cataracts: Yes (WITH BILATERAL SURGERY) Other/Comment: glasses, acoustic neuroma - Renal Hx Renal Disorder: Yes Hx Kidney Stones: Yes (RIGHT SIDE) - Endocrine/Metabolic Hx Endocrine Disorders: No - Hematological/Oncological Hx Blood Disorders: (blood transfusion) - Integumentary Hx Dermatological Disorder: No - Musculoskeletal/Rheumatological Hx Musculoskeletal Disorders: Yes (CERVICAL) Hx Falls: Yes (03/2017) - Gastrointestinal Hx 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) Other/Comment: colonscopy/endoscopy - Genitourinary/Gynecological Hx Genitourinary Disorders: Yes (incontinent at times post op, starting to use bathroom with assist) - Psychiatric Hx Psychophysiologic Disorder: Yes Hx Anxiety: Yes Hx Substance Use: No - Surgical History Hx Cardiac Catheterization: Yes Hx Coronary Stent: Yes (08/2013) Hx Orthopedic Surgery: Yes (left femur) 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, cholecystectomy, cataract surgery, , left breast lumpectomy - Anesthesia Hx Anesthesia: Yes Hx Anesthesia Reactions: No Hx Malignant Hyperthermia: No - Suicidal Assessment Feels Threatened In Home Enviroment: No Family/Social History - Physician Review Nursing Documentation Reviewed: Yes Family/Social History: Unknown Family HX Smoking Status: Smoker Currrent Status Unknown Hx Alcohol Use: No Hx Substance Use: No Hx Substance Use Treatment: No Allergies/Home Meds Allergies/Adverse Reactions: Allergies lactose Allergy (Intermediate, Verified 11/23/17 18:46) VOMITING VEGETABLES Adverse Reaction (Intermediate, Uncoded 11/23/17 18:46) DIARRHEA/BLOATING PT COULD NOT BE SPECIFIC Home Medications: Home Meds Medication Instructions Recorded Confirmed Aspirin [Ecotrin] 81 mg PO QAM 01/24/17 09/27/17 Atorvastatin [Lipitor] 40 mg PO QPM 01/24/17 09/27/17 Gabapentin [Neurontin] 300 mg PO HS 01/24/17 09/27/17 Losartan/Hydrochlorothiazide 1 tab PO QAM 01/24/17 09/27/17 [Losartan-Hctz 100-12.5 mg Tab] Paroxetine HCl 40 mg PO QAM 01/24/17 09/27/17 Metoprolol Tartrate [Lopressor] 25 mg PO QPM 03/07/17 09/27/17 Tramadol HCl [Ultram] 50 mg PO PRN PRN 03/07/17 09/27/17 Review of Systems - Physician Review All systems were reviewed & negative as marked: Yes - Review of Systems Constitutional: Normal Eyes: Normal ENT: Normal Respiratory: Normal Cardiovascular: Normal Gastrointestinal: Normal Genitourinary Female: Normal Musculoskeletal: Arthralgias (Left leg pain) Skin: Normal Neurological: Other (Head injury) Endocrine: Normal Hemo/Lymphatic: Normal Psychiatric: Normal Physical Exam Vital Signs Reviewed: Yes Vital Signs Temp Pulse Resp BP Pulse Ox 01/10/18 17:48 98.4 F 66 18 183/97 H 95 Temperature: Afebrile Blood Pressure: Normal Pulse: Regular Respiratory Rate: Normal Appearance: Positive for: Well-Appearing, Non-Toxic, Comfortable Pain Distress: None Mental Status: Positive for: Alert and Oriented X 3 - Systems Exam Head: Present: Atraumatic, Normocephalic, Contusion (Approximately 5 x 5cm hematoma to left sided forehead with overlaying abrasion) Pupils: Present: PERRL Extroacular Muscles: Present: EOMI Conjunctiva: Present: Normal Mouth: Present: Moist Mucous Membranes Neck: Present: Normal Range of Motion Respiratory/Chest: Present: Clear to Auscultation, Good Air Exchange. No: Respiratory Distress, Accessory Muscle Use Cardiovascular: Present: Regular Rate and Rhythm, Normal S1, S2. No: Murmurs Abdomen: No: Tenderness, Distention, Peritoneal Signs Back: Present: Normal Inspection Upper Extremity: Present: Normal Inspection. No: Cyanosis, Edema Lower Extremity: Present: NORMAL PULSES, Normal ROM, Tenderness (LEft lower leg) , Neurovascularly Intact. No: Edema Neurological: Present: GCS=15, CN II-XII Intact, Speech Normal Skin: Present: Warm, Dry, Normal Color. No: Rashes Psychiatric: Present: Alert, Oriented x 3, Normal Insight, Normal Concentration Medical Decision Making ED Course and Treatment: 01/10/18 19:50 PT in ED for stated history. She was neurologically intact in ED. Ice was placed to hematoma. Tramadol was given for pain control. She denied visual changes. Head CT - Negative Maxillofacial CT IMPRESSION: 1. There is soft tissue swelling/hematoma of the left frontal scalp and periorbital region. 2. There is a linear band of probable calcification anterior to the mandible. Fracture fragment is within the differential, although no discrete fracture is identified of the adjacent mandible. Clinical correlation is recommended. 3. Paranasal sinus disease is noted above. 4. Incidental/non-acute findings are described above. Left tib/fib No acute fracture - RAD Interpretation Radiology Orders: 01/10/18 17:42 MAXILLOFACIAL W/O CONTRAST [CT] Stat TIBIA FIBULA LEFT [RAD] Stat 01/10/18 17:44 HEAD W/O CONTRAST [CT] Stat - Medication Orders Current Medication Orders: Discontinued Medications Tramadol HCl (Ultram) 50 mg PO STAT STA Stop: 01/10/18 17:44 Last Admin: 01/10/18 18:22 Dose: 50 mg [facility] Pain Assessment Document 01/10/18 18:22 SF (Rec: 01/10/18 18:[address] [id number] Pain Reassessment Is this a pain reassessment? Yes Sleep Is patient sleeping during reassessment? No Presence of Pain Presence of Pain Yes Disposition/Present on Arrival - Present on Arrival Any Indicators Present on Arrival: No History of DVT/PE: No History of Uncontrolled Diabetes: No Urinary Catheter: No History Surgical Site Infection Following: None - Disposition Have Diagnosis and Disposition been Completed?: Yes Diagnosis: Minor head injury without loss of consciousness, Facial hematoma Disposition: HOME/ ROUTINE Disposition Time: 20:00 Patient Plan: Discharge Condition: STABLE Discharge Instructions (ExitCare): Closed Head Injury (DC), Minor Head Injury ( DC), [place] Additional Instructions: Follow up with your Doctor/Neurologist Return to ED for any worsening symptoms Referrals: Magali Beckham MD [Primary Care Provider] - Follow up with primary
[2018-01-10 17:49] VITALS: RESP 18
--- NOTE | 2018-01-10 19:48 | CT ---
EXAM: CT Maxillofacial Without Intravenous Contrast EXAM DATE/TIME: 01/10/2018 5:42 PM CLINICAL HISTORY: The patient age is 87 years old and is female; Injury or trauma; Fall; Initial encounter; Blunt trauma (contusions or hematomas); Cheek bone and forehead and ocular (eye or eyeball) and orbit/periorbital; Left; Additional info: Facial trauma Facility exam id and description: Ct faces maxillofacial w/o contrast TECHNIQUE: Axial computed tomography images of the face without intravenous contrast. All CT scans at this facility use one or more dose reduction techniques, viz.: automated exposure control; ma/kV adjustment per patient size (including targeted exams where dose is matched to indication; i.e. head); or iterative reconstruction technique. Coronal and sagittal reformatted images were created and reviewed. COMPARISON: No relevant prior studies available. FINDINGS: Bones/joints: There is a linear band of probable calcification anterior to the mandible. Fracture fragment is within the differential, although no discrete fracture is identified of the adjacent mandible. The remaining facial bones are intact. Soft tissues: There is soft tissue swelling/hematoma of the left frontal scalp and periorbital region. Orbits: Bilateral orbital lens implants. No post septal swelling or retrobulbar hematoma is visualized. Sinuses: A small mucous retention cyst or polyp is visualized within the left maxillary sinus. There is mild mucosal thickening of scattered ethmoid air cells. Mucosal thickening/effusion is visualized within the right sphenoid sinus. Minimal mucosal thickening is identified within the right maxillary sinus. Nasal cavity/septum: There is slight nasal septal deviation to the right. IMPRESSION: 1. There is soft tissue swelling/hematoma of the left frontal scalp and periorbital region. 2. There is a linear band of probable calcification anterior to the mandible. Fracture fragment is within the differential, although no discrete fracture is identified of the adjacent mandible. Clinical correlation is recommended. 3. Paranasal sinus disease is noted above. 4. Incidental/non-acute findings are described above.
--- NOTE | 2018-01-10 19:55 | CT ---
EXAM: CT Head Without Intravenous Contrast EXAM DATE/TIME: 01/10/2018 5:44 PM CLINICAL HISTORY: The patient age is 87 years old and is female; Injury or trauma; Fall; Initial encounter; Blunt trauma (contusions or hematomas); Consciousness not specified; Additional info: Head injury Facility exam id and description: Ct heads head w/o contrast TECHNIQUE: Axial computed tomography images of the head/brain without intravenous contrast. All CT scans at this facility use one or more dose reduction techniques, viz.: automated exposure control; ma/kV adjustment per patient size (including targeted exams where dose is matched to indication; i.e. head); or iterative reconstruction technique. Coronal and sagittal reformatted images were created and reviewed. COMPARISON: CT - HEAD W/O CONTRAST 2017-09-27 15:39 FINDINGS: Brain: Within the left cerebellar pontine angle cistern, there is a hypodense fluid collection or mass measuring 2.3 x 1.6 cm. This has mildly increased in size compared to the prior study. This is suggestive of an arachnoid cyst, although additional pathology cannot be excluded. There is extensive cerebral white matter hypodensity, likely representing small vessel ischemic disease in a patient this age. 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 The acuity of the white matter disease is indeterminate. The white-finnegan differentiation is preserved demonstrating no acute territorial type infarct. No acute intracranial hemorrhage is seen. Midline shift: There is no midline shift. Ventricles: There is moderate prominence of the ventricles and sulci, compatible with atrophy. Bones/joints: For discussion of findings involving the facial bones and paranasal sinuses, refer to the facial CT report from the same day. The calvarium demonstrates no evidence for a depressed fracture. Soft tissues: There is soft tissue swelling/hematoma of the left frontal scalp and periorbital region. Vasculature: There is atherosclerotic calcification of the intracranial internal carotid arteries and distal right vertebral artery. Sinuses: See above. Mastoid air cells: No mastoid effusion. IMPRESSION: 1. There is soft tissue swelling/hematoma of the left frontal scalp and periorbital region. 2. No acute intracranial hemorrhage or acute territorial type infarct. 3. Within the left cerebellar pontine angle cistern, there is a hypodense fluid collection or mass measuring 2.3 x 1.6 cm. This is suggestive of an arachnoid cyst. Further evaluation with a nonemergent MRI with/without contrast is recommended. 4. There is extensive cerebral white matter hypodensity, likely representing small vessel ischemic disease in a patient this age. 5. 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 6. Moderate atrophy.
[2018-01-10 20:41] VITALS: BP 167/85; PULSE 67; TEMP 98.2; O2SAT 100
--- NOTE | 2018-01-11 08:05 | RAD ---
PROCEDURE: Radiographs of the left tibia and fibula. HISTORY: Posttraumatic lower extremity pain. COMPARISON: None available. TECHNIQUE: Frontal and lateral views obtained. FINDINGS: BONES: No fracture or destructive lesion. JOINT SPACES: Unremarkable. OTHER FINDINGS: None. IMPRESSION: No acute findings related to/accounting for the clinical presentation.
== END 2018-01-10 20:41 | disposition home or self-care (01) ==
LOC: ED 17:33
DX: S00.83XA Contusion of other part of head, initial encounter (principal); W18.39XA Other fall on same level, initial encounter; Y92.89 Other specified places as the place of occurrence of the external cause

== ENCOUNTER 2018-01-12 14:21 | Inpatient (IN) | payer MEDICARE, OTHER ==
[2018-01-12 14:24] VITALS: BMI 25.7
--- NOTE | 2018-01-12 15:49 | ED PDOC ---
Arrival/HPI - General Chief Complaint: Lower Extremity Problem/Injury Time Seen by Provider: 01/12/18 15:13 Historian: Patient, Family (daughter) - History of Present Illness Narrative History of Present Illness (Text): 01/12/18 15:30 pt p/w + trip and fall 2 days ago and was evaluated in the ED with negative CT and left lower leg xray; pt was subsequently discharge but did not feel improvement and has since been mostly bedriddened as described by pt's daughter ; pt/daughter contacted Dr Rodriguez and he instructed patient to come to ED today for further re-eval; pt states her left face/swelling remains slightly improved and persistent left sided headache, NO new vision changes; pt states no neck pain, no cp/sob/palpitations, no abd pain, no n/v, no numbness/tingling , no fever/chills/sweats; pt noted left leg pain that is now severe, at most pain is 8/10; pt states pain travels from left knee up to left hip; pt states movement causes more pain; pt is unable to place weight to left leg and now cant walk; pt usually walks with a rolling walker; pt denied new trauma/fall, no slurr speech, no weakness 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 (prior to fall 2 days ago) and has been experiencing vision changes/dry left eye since (pt is seeing her eye doc) pt is here for further eval pt's without other complaints PCP: Jennifer pt is right hand dominate Time/Duration: < week (2 days ago) Symptom Onset: Sudden Symptom Course: Worsening Severity Level: 8, Severe Activities at Onset: Rest Context: Walking, Home Past Medical History - Provider Review Nursing Documentation Reviewed: Yes - Travel History Have you recently traveled outside [place] w/in the past 3 mons?: No - Past History Past History: No Previous - Infectious Disease Hx of Infectious Diseases: None - Tetanus Immunization Tetanus Immunization: Unknown - Reproductive Menopause: Yes Currently : No - Cardiac Hx Cardiac Disorders: Yes ([place]ABG, [place]) Hx Hypertension: Yes - Pulmonary Hx Respiratory Disorders: Yes (SINUSITIS) - Neurological Hx Neurological Disorder: Yes Hx Dizziness: Yes (vertigo) Hx Transient Ischemic Attacks (TIA): Yes - HEENT Hx HEENT Disorder: Yes Hx Cataracts: Yes (WITH BILATERAL SURGERY) Other/Comment: glasses, acoustic neuroma - Renal Hx Renal Disorder: Yes Hx Kidney Stones: Yes (RIGHT SIDE) - Endocrine/Metabolic Hx Endocrine Disorders: No - Hematological/Oncological Hx Blood Disorders: (blood transfusion) - Integumentary Hx Dermatological Disorder: No - Musculoskeletal/Rheumatological Hx Musculoskeletal Disorders: Yes (CERVICAL) Hx Falls: Yes (03/2017) - Gastrointestinal Hx 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) Other/Comment: colonscopy/endoscopy - Genitourinary/Gynecological Hx Genitourinary Disorders: Yes (incontinent at times post op, starting to use bathroom with assist) - Psychiatric Hx Psychophysiologic Disorder: Yes Hx Anxiety: Yes Hx Substance Use: No - Surgical History Hx Cardiac Catheterization: Yes Hx Coronary Stent: Yes (08/2013) Hx Orthopedic Surgery: Yes (left femur) 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, cholecystectomy, cataract surgery, , left breast lumpectomy - Anesthesia Hx Anesthesia: Yes Hx Anesthesia Reactions: No Hx Malignant Hyperthermia: No - Suicidal Assessment Feels Threatened In Home Enviroment: No Family/Social History - Physician Review Nursing Documentation Reviewed: Yes Family/Social History: Unknown Family HX Smoking Status: Smoker Currrent Status Unknown Hx Alcohol Use: No Hx Substance Use: No Hx Substance Use Treatment: No Allergies/Home Meds Allergies/Adverse Reactions: Allergies lactose Allergy (Intermediate, Verified 11/23/17 18:46) VOMITING VEGETABLES Adverse Reaction (Intermediate, Uncoded 11/23/17 18:46) DIARRHEA/BLOATING PT COULD NOT BE SPECIFIC Home Medications: Home Meds Medication Instructions Recorded Confirmed Gabapentin [Neurontin] 300 mg PO HS 01/24/17 01/12/18 Losartan/Hydrochlorothiazide 1 tab PO QAM 01/24/17 01/12/18 [Losartan-Hctz 100-12.5 mg Tab] Tramadol HCl [Ultram] 50 mg PO PRN PRN 03/07/17 01/12/18 Dextran/Hypromellose/Glycerin 1 drop LEFTEYE DAILY 01/12/18 01/12/18 [Genteal Tears 0.1%-0.2%-0.3%] Review of Systems - Review of Systems Constitutional: Normal Eyes: Vision Changes (chronic). absent: Photophobia, Eye Pain ENT: Normal Respiratory: Normal Cardiovascular: Normal Gastrointestinal: Normal Genitourinary Female: Normal Musculoskeletal: Other (left leg pain) Skin: Normal Neurological: Normal Endocrine: Normal Hemo/Lymphatic: Normal Psychiatric: Normal Physical Exam Vital Signs Reviewed: Yes Vital Signs Temp Pulse Resp BP Pulse Ox 01/12/18 20:17 99.0 F 68 20 106/64 95 01/12/18 17:23 60 18 142/76 95 01/12/18 15:15 97.9 F 69 20 190/84 H 96 01/12/18 14:51 97.8 F 74 18 167/82 H 95 Temperature: Afebrile Blood Pressure: Hypertensive Pulse: Regular Respiratory Rate: Normal Appearance: Positive for: Well-Appearing, Non-Toxic, Uncomfortable, Other (alert /awake, GCS = 15, oriented x 2 (not to date/time); resting in bed, uncomfortable , NAD, cooperative) Pain Distress: None Mental Status: Positive for: other (alert/awake, oriented x 2) - Systems Exam Head: Present: Normocephalic, Other (+ left ann-marie-orbital facial swelling) Pupils: Present: PERRL, Other (+ b/l corneal surg is noted, irregular shaped, no gross photophobia, noted left scleral hemorrhage but does not cross into cornea, visual field intact b/l, + left perioribital swelling is noted with age indeterminant skin ecchymosis, NO active bleeding sources noted; wearing eyeglasses) Extroacular Muscles: Present: EOMI. No: Gaze Palsy, Entrapment Conjunctiva: Present: Other (left scleral hemorrhage noted, left lower quad/ does not cross into the cornea/iris) Ears: Present: Normal Mouth: Present: Moist Mucous Membranes, Other (fair dentitions, no drooling/ stridor, no exudate/lesions, uvula/tongue are midline, no dysphonia) Pharnyx: Present: Normal Nose (External): Present: Atraumatic Nose (Internal): Present: Normal Inspection Neck: Present: Normal Range of Motion, Trachea Midline, Other (intact ROM, no step off, no midline tenderness, no nuchal rigidity). No: Meningeal Signs, MIDLINE TENDERNESS, Paraspinal Tenderness Respiratory/Chest: Present: Clear to Auscultation, Good Air Exchange, Other ( CTA b/l, no w/r/r, no accessory muscle use noted, no tachypenia). No: Respiratory Distress, Accessory Muscle Use Cardiovascular: Present: Regular Rate and Rhythm, Normal S1, S2. No: Murmurs Abdomen: Present: Normal Bowel Sounds, Other (well nourished female, no focal tenderness, no masses/rebound/guarding/rigidity; no pittman's sign, no mcburney' s point tenderness). No: Tenderness, Distention, Peritoneal Signs Back: Present: Normal Inspection, Other (intact ROM, no step off, no gross deformities). No: CVA Tenderness, Midline Tenderness, Paraspinal Tenderness Upper Extremity: Present: Normal Inspection, Normal ROM, NORMAL PULSES, Neurovascularly Intact, Other (intact ROM, strength 5-/5 b/l, no gross deformities). No: Cyanosis, Edema Lower Extremity: Present: Normal Inspection, Other (+ decr ROM to left leg due to pain; strength 3/5 left leg, strength 4-/5 right leg; neurovasc intact b/l, no gross deformities, decr ROM to left leg due to pain; no external/internal rotations noted, no shortening). No: Edema, Deformity Neurological: Present: GCS=15, CN II-XII Intact, Speech Normal Skin: Present: Warm, Dry, Normal Color, Other (cap refill < 1sec, no ulcerations , no petechiae). No: Rashes Psychiatric: Present: Alert, Oriented x 3, Normal Insight, Normal Concentration Medical Decision Making ED Course and Treatment: 01/12/18 1550 Impression: left leg pain, unable to walk i have consider all the differential diagnosis regarding pt's chief medical complaints/clinical findings, including but are not limited to: left leg pain, unable to walk A/P: left leg pain, unable to walk - labs - iv - xray - ua - supportive care - observe/reevaluation 1830 pt remained uncomfortable pt continued to have left leg pain pt is unable to stand/walk, unless assisted recommend to the patient for admission, for further pain control, for PT and eventual rehab 01/12/18 19:[address] Taveras, [employer] hospitalists, made aware, agrees with admission pt is currently comfortable, NAD pt/family are made aware of pt's medical results agrees with admission Re-evaluation Time: 19:16 Reassessment Condition: Improving,but remains with symptoms - Lab Interpretations Lab Results: 01/12/18 16:34 01/12/18 16:34 Lab Results 01/12/18 16:34: pO2 32, VBG pH 7.37, VBG pCO2 59.0, VBG HCO3 34.1 H, VBG Total CO2 35.9 H, VBG O2 Sat (Calc) 66.1 H, VBG Base Excess 6.9 H, VBG Potassium 3.5 L , Sodium 139.0, Chloride 104.0, Glucose 91, Lactate 0.8, FiO2 21.0, Venous Blood Potassium 3.5 L 01/12/18 16:34: Sodium 143, Chloride 103, Potassium 3.7, Carbon Dioxide 31, Anion Gap 13, BUN 23 H, Creatinine 0.6 L, Est GFR ( Amer) > 60, Est GFR ( Non-Af Amer) > 60, Random Glucose 88, Calcium 9.2, Total Bilirubin 1.0, AST 26, ALT 29, Alkaline Phosphatase 82, Total Creatine Kinase 46, Troponin I < 0.01, Total Protein 6.8, Albumin 4.0, Globulin 2.8, Albumin/Globulin Ratio 1.4, Lipase 110 01/12/18 16:34: PT 12.5, INR 1.09 H, APTT 28.0 01/12/18 16:34: WBC 10.8 D, RBC 4.34, Hgb 12.3, Hct 38.3, MCV 88.2, MCH 28.3, MCHC 32.1, RDW 15.1 H, Plt Count 232, MPV 9.6, Gran % 61.5, Lymph % (Auto) 24.6 , [place] % (Auto) 9.5 H, Eos % (Auto) 4.2, Baso % (Auto) 0.2, Gran # 6.63 H, Lymph # (Auto) 2.7, [place] # (Auto) 1.0 H, Eos # (Auto) 0.5, Baso # (Auto) 0.02 I have reviewed the lab results: Yes Interpretation: All labs normal - RAD Interpretation Narrative RAD Interpretations (Text): 01/10/2018 19:55:00 CT Head Without Intravenous Contrast FINDINGS: Brain: Within the left cerebellar pontine angle cistern, there is a hypodense fluid collection or mass measuring 2.3 x 1.6 cm. This has mildly increased in size compared to the prior study. This is suggestive of an arachnoid cyst, although additional pathology cannot be excluded. There is extensive cerebral white matter hypodensity, likely representing small vessel ischemic disease in a patient this age. 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 The acuity of the white matter disease is indeterminate. The white-finnegan differentiation is preserved demonstrating no acute territorial type infarct. No acute intracranial hemorrhage is seen. Midline shift: There is no midline shift. Ventricles: There is moderate prominence of the ventricles and sulci, compatible with atrophy. Bones/joints: For discussion of findings involving the facial bones and paranasal sinuses, refer to the facial CT report from the same day. The calvarium demonstrates no evidence for a depressed fracture. Soft tissues: There is soft tissue swelling/hematoma of the left frontal scalp and periorbital region. Vasculature: There is atherosclerotic calcification of the intracranial internal carotid arteries and distal right vertebral artery. Sinuses: See above. Mastoid air cells: No mastoid effusion. IMPRESSION: 1. There is soft tissue swelling/hematoma of the left frontal scalp and periorbital region. 2. No acute intracranial hemorrhage or acute territorial type infarct. 3. Within the left cerebellar pontine angle cistern, there is a hypodense fluid collection or mass measuring 2.3 x 1.6 cm. This is suggestive of an arachnoid cyst. Further evaluation with a nonemergent MRI with/without contrast is recommended. 4. There is extensive cerebral white matter hypodensity, likely representing small vessel ischemic disease in a patient this age. 5. 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 6. Moderate atrophy. 01/10/2018 19:47:00 CT Maxillofacial Without Intravenous Contrast FINDINGS: Bones/joints: There is a linear band of probable calcification anterior to the mandible. Fracture fragment is within the differential, although no discrete fracture is identified of the adjacent mandible. The remaining facial bones are intact. Soft tissues: There is soft tissue swelling/hematoma of the left frontal scalp and periorbital region. Orbits: Bilateral orbital lens implants. No post septal swelling or retrobulbar hematoma is visualized. Sinuses: A small mucous retention cyst or polyp is visualized within the left maxillary sinus. There is mild mucosal thickening of scattered ethmoid air cells. Mucosal thickening/effusion is visualized within the right sphenoid sinus. Minimal mucosal thickening is identified within the right maxillary sinus. Nasal cavity/septum: There is slight nasal septal deviation to the right. IMPRESSION: 1. There is soft tissue swelling/hematoma of the left frontal scalp and periorbital region. 2. There is a linear band of probable calcification anterior to the mandible. Fracture fragment is within the differential, although no discrete fracture is identified of the adjacent mandible. Clinical correlation is recommended. 3. Paranasal sinus disease is noted above. 4. Incidental/non-acute findings are described above. 01/11/2018 08:03:23 Radiographs of the left tibia and fibula. FINDINGS: BONES: No fracture or destructive lesion. JOINT SPACES: Unremarkable. OTHER FINDINGS: None. IMPRESSION: No acute findings related to/accounting for the clinical presentation. 01/12/18 22:35 Left knee xray read and interpreted by me, which shows no fracture, osteopenic. Left femur xray read and interpreted by me, which shows proximal orthopedic prosthetic, no fracture, osteopenic. Left hip xray read and interpreted by me, which shows orthopedic prosthetic, no fracture, no dislocation, osteopenic. Chest xray read and interpreted by me, which shows hyperinflated lung, slight left lung bibasilar atelectasis, no effusion, no masses. 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 - EKG Interpretation EKG Interpretation (Text): 01/12/18 18:16 Sinus rhythm at 65 bpm, LAD, RBBB, poor baseline, inverted T in leads III, V1-6 , no st changes, ABNL EKG; no gross changes compare with old ekg 09/2017 Interpreted by ED Physician: Yes Type: 12 lead EKG Comparison: Similar to previous EKG - Medication Orders Current Medication Orders: Sodium Chloride (Sodium Chloride 0.9%) 1,000 mls @ 100 mls/hr IV .Q10H MICKI Last Admin: 01/12/18 16:12 Dose: 100 mls/hr eMAR Start Stop Document 01/12/18 16:12 OCS (Rec: 01/12/18 16:12 OCS [id number]) Intravenous Solution Start Date 01/12/18 Start Time 16:12 Discontinued Medications Morphine Sulfate (Morphine) 4 mg IVP STAT STA Stop: 01/12/18 15:52 Last Admin: 01/12/18 16:12 Dose: 4 mg MAR Pain Assessment Document 01/12/18 16:12 OCS (Rec: 01/12/18 16:13 OCS [id number]) Pain Reassessment Is this a pain reassessment? Yes Sleep Is patient sleeping during reassessment? No Presence of Pain Presence of Pain Yes Pain Scale Used Pain Scale Used Numeric Location Left, Right or Bilateral Left Pain Location Body Site Hip Knee Leg Description Description Constant Intensity of Pain at present 9 Pain Behavior Irritability Facial Grimacing Aggravating Factors ADL's IVP Administration Document 01/12/18 16:12 OCS (Rec: 01/12/18 16:13 OCS [id number]) Charges for Administration # of IVP Administrations 1 Disposition/Present on Arrival - Present on Arrival Any Indicators Present on Arrival: No History of DVT/PE: No History of Uncontrolled Diabetes: No Urinary Catheter: No History of Decub. Ulcer: No History Surgical Site Infection Following: None - Disposition Have Diagnosis and Disposition been Completed?: Yes Diagnosis: Ambulatory dysfunction, Left leg pain, Weakness Disposition: HOSPITALIZED Disposition Time: 19:00 Patient Plan: Admission Patient Problems: Current Active Problems Problem Status Onset Ambulatory dysfunction Acute Left leg pain Acute Weakness Acute Condition: STABLE
[2018-01-12] MEDS ORDERED: Morphine 4 mg/ml ISec IVP STA (15:51)
[2018-01-12] MEDS: Sodium Chloride 0.9% 1,000 ML IV SCH (16:12)
[2018-01-12 16:41] LABS: VENOUS BLOOD GAS BASE EXCESS 6.9 mmol/L (0.0-2.0); VENOUS BLOOD GAS PO2 32 mm/Hg (30-55); VENOUS BLOOD PH 7.37 (7.32-7.43)
[2018-01-12 16:43] LABS: BASO # 0.02 K/mm3 (0.0-2.0); BASO % 0.2 % (0.0-3.0); EOS # 0.5 (0.0-0.7); EOS % 4.2 % (1.5-5.0); GRAN # 6.63 (1.4-6.5); GRAN % 61.5 % (50.0-68.0); HEMOGLOBIN 12.3 g/dL (12.0-16.0); LYMPH # 2.7 (1.2-3.4); LYMPH % 24.6 % (22.0-35.0); MEAN CELL VOLUME 88.2 fl (80.0-105.0); MEAN CORPUSCULAR HEMOGLOBIN 28.3 pg (25.0-35.0); MEAN CORPUSCULAR HGB CONC 32.1 g/dl (31.0-37.0); MEAN PLATELET VOLUME 9.6 fl (7.0-11.0); MONO % 9.5 % (1.0-6.0); RBC 4.34 10^6/uL (3.5-6.1); RED CELL DISTRIBUTION WIDTH 15.1 % (11.5-14.5); WHITE BLOOD COUNT 10.8 10^3/ul (4.5-11.0)
[2018-01-12 16:49] LABS: INR 1.09 (0.93-1.08); PROTHROMBIN TIME 12.5 SECONDS (9.4-12.5)
[2018-01-12 16:51] LABS: ALB/GLOB RATIO 1.4 (1.1-1.8); ALT/SGPT 29 U/L (7-56); AST/SGOT 26 U/L (14-36); BLOOD UREA NITROGEN 23 mg/dL (7-21); CALCIUM 9.2 mg/dL (8.4-10.5); GFR AFRICAN-AMERICAN > 60; GFR NON-AFRICAN AMERICAN > 60; LIPASE 110 U/L (23-300)
[2018-01-12 17:02] LABS: TROPONIN I < 0.01 ng/mL
--- NOTE | 2018-01-13 04:27 | CP.PCM.HP ---
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 Patient had fall 2 days ago and presented to [facility] at that time was evaluated with CT and left lower xray which were negative. Patient was discharged to home. Presents to ED after being bedridden secondary to pain associated with fall. Patietn indicates inability to bear weight to left leg and requires assistance to toilet. She reports weakness/pain with left lower extremity. Patient also with history of bailon's palsy with left side of her face being swollen/numbness. Patient reports bailon's palsy symptoms is stable at this time. 12 point ROS benign other than mentioned in HPI. 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, colonoscopy, endoscopy SOCHX: Denies Tobacco, ETOH, ID ALL: Lactose MEDS: MAR reviewed PCP: Jennifer Present on Admission - Present on Admission Any Indicators Present on Admission: No Review of Systems - Review of Systems All systems: reviewed and no additional remarkable complaints except (as mentioned in HPI) Past Patient History - Infectious Disease Hx of Infectious Diseases: None - Tetanus Immunizations Tetanus Immunization: Unknown - Past Medical History & Family History Past Medical History?: Yes - Past Social History Smoking Status: Smoker Currrent Status Unknown - CARDIAC Hx Cardiac Disorders: Yes ([place]ABG, [place]) Hx Hypertension: Yes - PULMONARY Hx Respiratory Disorders: Yes (SINUSITIS) - NEUROLOGICAL Hx Neurological Disorder: Yes Hx Dizziness: Yes (vertigo) Hx Transient Ischemic Attacks (TIA): Yes - HEENT Hx HEENT Problems: Yes Hx Cataracts: Yes (WITH BILATERAL SURGERY) Other/Comment: glasses, acoustic neuroma - RENAL Hx Chronic Kidney Disease: Yes Hx Kidney Stones: Yes (RIGHT SIDE) - ENDOCRINE/METABOLIC Hx Endocrine Disorders: No - HEMATOLOGICAL/ONCOLOGICAL Hx Blood Disorders: (blood transfusion) - INTEGUMENTARY Hx Dermatological Problems: No - MUSCULOSKELETAL/RHEUMATOLOGICAL Hx Musculoskeletal Disorders: Yes (CERVICAL) Hx Falls: Yes ([facility] [place]/2017) - GASTROINTESTINAL Hx 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) Other/Comment: colonscopy/endoscopy - GENITOURINARY/GYNECOLOGICAL Hx Genitourinary Disorders: Yes (incontinent at times post op, starting to use bathroom with assist) - PSYCHIATRIC Hx Psychophysiologic Disorder: Yes Hx Anxiety: Yes Hx Substance Use: No - SURGICAL HISTORY Hx Cardiac Catheterization: Yes Hx Coronary Stent: Yes (08/2013) Hx Orthopedic Surgery: Yes (left femur) 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, cholecystectomy, cataract surgery, , left breast lumpectomy - ANESTHESIA Hx Anesthesia: Yes Hx Anesthesia Reactions: No Hx Malignant Hyperthermia: No Meds Allergies/Adverse Reactions: Allergies Allergy/AdvReac Type Severity Reaction Status Date / Time lactose Allergy Intermediate VOMITING Verified 11/23/17 18:46 VEGETABLES AdvReac Intermediate DIARRHEA/BL Uncoded 11/23/17 18:46 OATING Physical Exam - Constitutional Appears: Non-toxic, No Acute Distress - Head Exam Additional comments: facial bruising of periorbital area b/l - Eye Exam Eye Exam: EOMI, PERRL - ENT Exam ENT Exam: Mucous Membranes Moist - Neck Exam Neck exam: Positive for: Full Rom - Respiratory Exam Respiratory Exam: Clear to Auscultation Bilateral, NORMAL BREATHING PATTERN. absent: Rhonchi, Wheezes - Cardiovascular Exam Cardiovascular Exam: REGULAR RHYTHM, +S1, +S2 - GI/Abdominal Exam GI & Abdominal Exam: Normal Bowel Sounds, Soft. absent: Firm, Guarding, Rigid - Extremities Exam Extremities exam: Positive for: normal capillary refill, pedal pulses present. Negative for: pedal edema Additional comments: left lower extremity tenderness with external and internal rotation - Neurological Exam Neurological exam: Alert, Oriented x3 Additional comments: motor and sensory grossly intact - Psychiatric Exam Psychiatric exam: Normal Affect, Normal Mood - Skin Skin Exam: Dry, Warm Additional comments: bruising noted periorbital b/l Results - Vital Signs Recent Vital Signs: Last Vital Signs Temp 98.4 F 01/12/18 21:36 Pulse 70 01/12/18 21:36 Resp 20 01/12/18 21:36 BP 143/62 01/12/18 21:36 Pulse Ox 96 01/12/18 20:20 - Labs Result Diagrams: 01/12/18 16:34 01/12/18 16:34 Assessment & Plan - Assessment and Plan (Free Text) Assessment: 87 year old female with past medical history of CVA, [place], CAD, HTN, HLD, 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 Plan: Gait instability - Left lower extremity CT showing - Left tibia and fibia xray(01/11/18): No acute findings related to/accounting for the clinical presentation - Left hip xray: orthopedic prosthetic, no fracture, no dislocation, osteopenic - Left femur xray: proximal orthopedic prosthetic, no fracture, osteopenic - Left knee xray: no fracture, osteopenic - Patient unable to stand/walk unassisted - PT/OT evaluation and treatment - Fall precautions hx CAD s/p stents - aspirin, statin [place] Palsy - Stable at this time - Patient to follow up with neurology - Continue home medications DVT ppx: Heparin SQ GI PPX: Protonix Case and plan discussed with attending - Date & Time Date: 01/13/18 Time: 05:55 <Dhruv Taveras - Last Filed: 01/17/18 03:38> Results - Vital Signs Recent Vital Signs: Last Vital Signs Temp 98.6 F 01/16/18 17:49 Pulse 73 01/16/18 18:07 Resp 19 01/16/18 17:49 BP 141/62 01/16/18 18:07 Pulse Ox 96 01/16/18 17:49 - Labs Result Diagrams: 01/16/18 06:00 01/16/18 06:00 Labs: Laboratory Results - last 24 hr 01/16/18 01/16/18 06:00 06:00 WBC 10.7 RBC 4.11 Hgb 11.3 L Hct 35.7 L MCV 86.9 MCH 27.5 MCHC 31.7 RDW 14.9 H Plt Count 255 MPV 9.4 Gran % 57.1 Lymph % (Auto) 29.0 [place] % (Auto) 11.2 H Eos % (Auto) 2.5 Baso % (Auto) 0.2 Gran # 6.11 Lymph # (Auto) 3.1 [place] # (Auto) 1.2 H Eos # (Auto) 0.3 Baso # (Auto) 0.02 Sodium 143 Potassium 3.5 L Chloride 103 Carbon Dioxide 30 Anion Gap 13 BUN 19 Creatinine 0.7 Est GFR ( Amer) > 60 Est GFR (Non-Af Amer) > 60 Random Glucose 106 Calcium 9.2 Total Bilirubin 0.9 AST 24 ALT 31 Alkaline Phosphatase 92 Total Protein 6.4 Albumin 3.6 Globulin 2.8 Albumin/Globulin Ratio 1.3 Attending/Attestation - Attestation I have personally seen and examined this patient.: Yes I have fully participated in the care of the patient.: Yes I have reviewed all pertinent clinical information: Yes Notes (Text): 01/17/18 03:38 Agree with history, physical examination, assessment and plan. Patient was seen when she was in the ER.
[2018-01-13] MEDS: Sodium Chloride 0.9% 1,000 ML IV SCH ×3 (05:21→22:34)
--- NOTE | 2018-01-13 08:47 | RAD ---
HISTORY: fall 2 days ago, weakness, cant walk COMPARISON: 09/27/2017 TECHNIQUE: Chest PA and lateral FINDINGS: LUNGS: No active pulmonary disease. PLEURA: No significant pleural effusion identified. No pneumothorax apparent. CARDIOVASCULAR: Normal. OSSEOUS STRUCTURES: No significant abnormalities. VISUALIZED UPPER ABDOMEN: Normal. OTHER FINDINGS: None. IMPRESSION: No active disease.
--- NOTE | 2018-01-13 09:55 | RAD ---
PROCEDURE: Left Hip and pelvis X-ray Radiographs. HISTORY: fall 2 days ago, weakness, cant walk COMPARISON: None. FINDINGS: BONES: There is a compression screw and trish in the left hip. There is a small amount of heterotopic bone superior to the greater trochanter. No acute findings JOINTS: Normal. SOFT TISSUES: Normal. OTHER FINDINGS: None. IMPRESSION: No acute findings.
--- NOTE | 2018-01-13 09:56 | RAD ---
PROCEDURE: Left Femur Radiographs. HISTORY: fall 2 days ago, weakness, cant walk COMPARISON: None. TECHNIQUE: AP and Lateral Radiographs of the left femur. FINDINGS: FEMUR: Normal. No fracture. SOFT TISSUES: Normal. OTHER FINDINGS: None. IMPRESSION: Unremarkable radiographs of the left femur.
--- NOTE | 2018-01-13 09:57 | RAD ---
PROCEDURE: Left Knee Radiographs. HISTORY: Pain. COMPARISON: None. FINDINGS: BONES: Normal. No fracture. JOINTS: Normal. No osteoarthritis. JOINT EFFUSION: None. OTHER FINDINGS: None. IMPRESSION: Normal radiographs of the left knee.
[2018-01-13] MEDS ORDERED: Non Formulary Medication (Losartan/Hydrochlorothiazide [Losartan-Hctz 100-12.5 Mg Tab] 1 T PO SCH (10:00)
[2018-01-13] MEDS ORDERED: DEXTRAN LEFTEYE SCH (10:00)
[2018-01-13] MEDS ORDERED: HYPROMELLOSE LEFTEYE SCH (10:00)
[2018-01-13] MEDS ORDERED: GLYCERIN LEFTEYE SCH (10:00)
--- NOTE | 2018-01-13 10:14 | CARD ---
APPROVED REPORT EKG Measurement Heart Orax99PVAL ID [id number] <Conclusion> Sinus rhythm with 1st degree AVB RBBB NSSTW changes Artifact present No change
--- NOTE | 2018-01-13 17:59 | MRI ---
PROCEDURE: MRI of the brain dated 01/13/2018 HISTORY: Evaluation of possible cystic lesion. COMPARISON: Comparison made with prior CT scan of the head dated 01/10/2018. TECHNIQUE: Multiplanar, multisequence MR images of the brain were obtained without intravenous contrast enhancement. FINDINGS: HEMORRHAGE: No acute parenchymal, subarachnoid or extra-axial hemorrhage. The no evidence of hemosiderin deposition is identified on gradient echo weighted sequence. DWI: No evidence of an acute or early subacute infarction seen on diffusion imaging. . BRAIN PARENCHYMA: There is a elliptical shaped cystic lesion in the left CP angle cistern that appears to be associated with a warm solid component along its medial border extending into a widened appearing left-sided left sided porus acusticus of the internal auditory canal. 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 . The overall size of this lesion including the cystic component is approximately 2.5 cm AP x 2.15 cm T x 1.8cm cc. Note made of exuberant dilated perivascular spaces within both basal nuclei note that such findings have been seen and described in cases of vascular dementia. Clinical correlation recommended. VENTRICLES: No obstructive hydrocephalus. CRANIUM: No acute calvarial abnormalities however note made of a left supraorbital and left frontal scalp contusion with overlying soft tissue swelling . ORBITS: Changes of bilateral cataract surgery again noted PARANASAL SINUSES/MASTOIDS: Clear VASCULAR SYSTEM: Visualized major vascular flow voids at skull base patent. OTHER FINDINGS: None. IMPRESSION: No acute intracranial hemorrhage or infarct. Significant Diffuse/ confluent chronic white matter ischemic changes seen extending peripherally into the deep and subcortical white matter both cerebral hemispheres. . Multiple more discrete chronic appearing smaller infarct changes seen scattered about the deep and subcortical white matter as well as both basal nuclei and brainstem. Moderate -significant generalized volume loss. . Exuberant bilateral basal nuclei dilated perivascular spaces; rule out vascular dementia as above. No evidence of acute intracranial hemorrhage or infarct. There is a cystic and solid lesion in the left CP angle with the more solid component extending into and widened porus acusticus of the left internal auditory. 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 Left supraorbital and frontal scalp contusion associate with surrounding soft tissue swelling
[2018-01-13 18:41] LABS: PH,URINE 6.5 (4.7-8.0); URINE BILIRUBIN NEGATIVE (NEGATIVE); URINE BLOOD SMALL (NEGATIVE); URINE GLUCOSE (UA) NEGATIVE (NEGATIVE); URINE LEUKOCYTE ESTERASE NEGATIVE Leu/uL (NEGATIVE); URINE PROTEIN NEGATIVE mg/dL (<30 mg/dL); URINE UROBILINOGEN 0.2 E.U./dL (<1 E.U./dL)
[2018-01-13 18:46] LABS: URINE APPEARANCE CLEAR (CLEAR); URINE BACTERIA NEG (NEG); URINE COLOR LIGHT YELLOW (YELLOW); URINE EPITHELIAL CELLS 0 - 2 /hpf (0-5); URINE RBC 0 - 2 /hpf (0-2); URINE WBC 0 - 2 /hpf (0-6)
--- NOTE | 2018-01-13 22:51 | US ---
PROCEDURE: Left lower extremity venous US HISTORY: Leg pain and swelling. Evaluate for DVT. PHYSICIAN(S): Sánchez Levy MD. TECHNIQUE: Duplex sonography and color-flow Doppler with graded compression were used to evaluate the deep venous system of the left lower extremity. FINDINGS: The visualized deep venous system of the left lower extremity is sonographically normal and compressible. Normal wave forms and augmentation are seen. There is no sonographic evidence for deep venous thrombosis in the visualized segments of the left lower extremity. IMPRESSION: 1. No sonographic evidence for deep venous thrombosis in the visualized segments of the left lower extremity.
[2018-01-14] MEDS: Pantoprazole 40 mg EC Tab PO SCH (05:23)
[2018-01-14] MEDS: Mineral Oil/Petrolatum Opht Oint(3.5 gm) OD SCH (09:56)
--- NOTE | 2018-01-14 13:46 | CP.PCM.PN ---
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 At 87 yo pt would be best served by evaluation by Radiation therapy for stereotactic radiosurgery Excision of this type of lesion in this age range is very dangerous and not first line treatment This is a longstanding lesion and can be evaluated for radiosurgery if not available here as outpt Objective - Vital Signs/Intake and Output Vital Signs (last 24 hours): Temp Pulse Resp BP Pulse Ox 99.1 F 63 20 188/70 H 98 01/14/18 08:27 01/14/18 08:27 01/14/18 08:27 01/14/18 09:44 01/14/18 08:27 Intake and Output: 01/14/18 01/14/18 06:59 18:59 Intake Total 600 Output Total 500 Balance 100 - Medications Medications: Current Medications Acetaminophen (Tylenol 325mg Tab) 650 mg PO Q4H PRN PRN Reason: Headache Artificial Tears (Artificial Tears Opht Oint) 0 gm OD DAILY [facility] Last Admin: 01/14/18 09:56 Dose: 1 applic Aspirin (Ecotrin) 81 mg PO DAILY [facility] Last Admin: 01/14/18 09:43 Dose: 81 mg Atorvastatin Calcium (Lipitor) 40 mg PO DAILY [facility] Last Admin: 01/14/18 09:43 Dose: 40 mg Docusate Sodium (Colace) 100 mg PO DAILY [facility] Last Admin: 01/14/18 09:43 Dose: 100 mg Gabapentin (Neurontin) 300 mg PO HS [facility] PRN Reason: Protocol Last Admin: 01/13/18 22:33 Dose: 300 mg Heparin Sodium (Porcine) (Heparin) 5,000 units SC Q8 [facility] PRN Reason: Protocol Last Admin: 01/14/18 05:23 Dose: 5,000 units Hydralazine HCl (Apresoline) 10 mg PO Q6H PRN PRN Reason: Systolic Blood Pressure Hydrochlorothiazide (Microzide) 25 mg PO QAM [facility] Losartan Potassium (Cozaar) 100 mg PO QAM [facility] Metoprolol Tartrate (Lopressor) 25 mg PO BID [facility] Pantoprazole Sodium (Protonix Ec Tab) 40 mg PO 0600 [facility] Last Admin: 01/14/18 05:23 Dose: 40 mg Paroxetine HCl (Paxil) 40 mg PO DAILY [facility] Last Admin: 01/14/18 09:42 Dose: 40 mg Tramadol HCl (Ultram) 50 mg PO Q6 PRN PRN Reason: Pain, moderate (4-7) Last Admin: 01/13/18 10:02 Dose: 50 mg - Labs Labs: PT 12.5 SECONDS (9.4-12.5) 01/12/18 16:34 INR 1.09 (0.93-1.08) H 01/12/18 16:34 APTT 28.0 Seconds (25.1-36.5) 01/12/18 16:34
--- NOTE | 2018-01-14 15:20 | CP.PCM.CON ---
History of Present Illness - History of Present Illness History of Present Illness: Mrs. 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 Radiographs of the left lower extremity did not show fracture. MRI brain was consistent with a left 8th nerve schwannoma and diffuse white matter disease and chronic bilateral subcortical lacunar infarcts. Neurosurgery recommended radiation therapy for the mass. The patient states she had cyber knife therapy for the schwannoma in 2004. She developed Bailon's Palsy about 3 weeks ago. She states that she is unable to ambulate due to pain in her hip and left leg below the knee. Review of Systems - Review of Systems All systems: reviewed and no additional remarkable complaints except Past Patient History - Infectious Disease Hx of Infectious Diseases: None - Tetanus Immunizations Tetanus Immunization: Unknown - Past Medical History & Family History Past Medical History?: Yes - Past Social History Smoking Status: Smoker Currrent Status Unknown - CARDIAC Hx Cardiac Disorders: Yes (DC,) Hx Hypertension: Yes - PULMONARY Hx Respiratory Disorders: Yes (SINUSITIS) - NEUROLOGICAL HX Cerebrovascular Accident: Yes ([place] palsy with L facial weakness) - HEENT Hx HEENT Problems: Yes Hx Cataracts: Yes (WITH BILATERAL SURGERY) Other/Comment: glasses, acoustic neuroma - RENAL Hx Chronic Kidney Disease: Yes Hx Kidney Stones: Yes (RIGHT SIDE) - ENDOCRINE/METABOLIC Hx Endocrine Disorders: No - HEMATOLOGICAL/ONCOLOGICAL Hx Blood Disorders: (blood transfusion) - INTEGUMENTARY Hx Dermatological Problems: No - MUSCULOSKELETAL/RHEUMATOLOGICAL Hx Musculoskeletal Disorders: Yes (CERVICAL) Hx Falls: Yes ([facility] 03/2017) - GASTROINTESTINAL Hx 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) Other/Comment: colonscopy/endoscopy - GENITOURINARY/GYNECOLOGICAL Hx Genitourinary Disorders: Yes (incontinent at times post op, starting to use bathroom with assist) - PSYCHIATRIC Hx Psychophysiologic Disorder: Yes Hx Anxiety: Yes Hx Substance Use: No - SURGICAL HISTORY Hx Cardiac Catheterization: Yes Hx Coronary Stent: Yes (08/2013) Hx Orthopedic Surgery: Yes (left femur) 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, cholecystectomy, cataract surgery, , left breast lumpectomy - ANESTHESIA Hx Anesthesia: Yes Hx Anesthesia Reactions: No Hx Malignant Hyperthermia: No Meds Allergies/Adverse Reactions: Allergies Allergy/AdvReac Type Severity Reaction Status Date / Time lactose Allergy Intermediate VOMITING Verified 11/23/17 18:46 VEGETABLES AdvReac Intermediate DIARRHEA/BL Uncoded 11/23/17 18:46 OATING - Medications Medications: Current Medications Acetaminophen (Tylenol 325mg Tab) 650 mg PO Q4H PRN PRN Reason: Headache Artificial Tears (Artificial Tears Opht Oint) 0 gm OD DAILY [facility] Last Admin: 01/14/18 09:56 Dose: 1 applic Aspirin (Ecotrin) 81 mg PO DAILY [facility] Last Admin: 01/14/18 09:43 Dose: 81 mg Atorvastatin Calcium (Lipitor) 40 mg PO DAILY [facility] Last Admin: 01/14/18 09:43 Dose: 40 mg Docusate Sodium (Colace) 100 mg PO DAILY [facility] Last Admin: 01/14/18 09:43 Dose: 100 mg Gabapentin (Neurontin) 300 mg PO HS [facility] PRN Reason: Protocol Last Admin: 01/13/18 22:33 Dose: 300 mg Heparin Sodium (Porcine) (Heparin) 5,000 units SC Q8 [facility] PRN Reason: Protocol Last Admin: 01/14/18 14:47 Dose: 5,000 units Hydralazine HCl (Apresoline) 10 mg PO Q6H PRN PRN Reason: Systolic Blood Pressure Hydrochlorothiazide (Microzide) 25 mg PO QAM [facility] Losartan Potassium (Cozaar) 100 mg PO QAM [facility] Metoprolol Tartrate (Lopressor) 25 mg PO BID [facility] Pantoprazole Sodium (Protonix Ec Tab) 40 mg PO 0600 [facility] Last Admin: 01/14/18 05:23 Dose: 40 mg Paroxetine HCl (Paxil) 40 mg PO DAILY [facility] Last Admin: 01/14/18 09:42 Dose: 40 mg Tramadol HCl (Ultram) 50 mg PO Q6 PRN PRN Reason: Pain, moderate (4-7) Last Admin: 01/13/18 10:02 Dose: 50 mg Physical Exam - Neurological Exam Neurological exam: Abnormal Gait, Alert, CN II-XII Intact, Oriented x3, Reflexes Normal Additional comments: CN 7 palsy on the left. Otherwise CN 2-12 intact. Bilateral lower extremity weakness, but worse on the left side due to pain. Able to maintain antigravity for over 5 seconds bilaterally. NIHSS = 1 (if left facial droop is considered). Results - Vital Signs Recent Vital Signs: Last Vital Signs Temp 99.1 F 01/14/18 08:27 Pulse 63 01/14/18 08:27 Resp 20 01/14/18 08:27 BP 188/70 H 01/14/18 09:44 Pulse Ox 98 01/14/18 08:27 - Labs Result Diagrams: 01/12/18 16:34 01/12/18 16:34 Labs: Laboratory Results - last 24 hr 01/13/18 18:32 Urine Color Light yellow Urine Appearance Clear Urine pH 6.5 Ur Specific [place] 1.015 Urine Protein Negative Urine Glucose (UA) Negative Urine Ketones Negative Urine Blood Small H Urine Nitrate Negative Urine Bilirubin Negative Urine Urobilinogen 0.2 Ur Leukocyte Esterase Negative Urine RBC 0 - 2 Urine WBC 0 - 2 Ur Epithelial Cells 0 - 2 Urine Bacteria Neg Assessment & Plan (1) Schwannoma Assessment and Plan: Outpatient management with neurosurgery. Status: Chronic Priority: Medium (2) Left leg pain Assessment and Plan: Likely due to injury, but will rule out nerve root, or spinal injury with MRI of the thoracic/lumbar region. Status: Acute Priority: Medium (3) Weakness Status: Acute Priority: Medium (4) Head injury due to trauma Status: Acute Priority: Medium
--- NOTE | 2018-01-14 15:27 | CP.PCM.PN ---
<Dasha Grimaldo - Last Filed: 01/14/18 15:17> Subjective - Date & Time of Evaluation Date of Evaluation: 01/14/18 Time of Evaluation: 15:17 - Subjective Subjective: Patient seen and examined at bedside. No acute events overnight. Reports left leg pain, mildly improved. Denies fever, chills, nausea, vomiting, abdominal pain, leg swelling, urinary symptoms. Objective - Vital Signs/Intake and Output Vital Signs (last 24 hours): Temp Pulse Resp BP Pulse Ox 99.1 F 63 20 188/70 H 98 01/14/18 08:27 01/14/18 08:27 01/14/18 08:27 01/14/18 09:44 01/14/18 08:27 Intake and Output: 01/14/18 01/14/18 06:59 18:59 Intake Total 600 Output Total 500 Balance 100 - Medications Medications: Current Medications Acetaminophen (Tylenol 325mg Tab) 650 mg PO Q4H PRN PRN Reason: Headache Artificial Tears (Artificial Tears Opht Oint) 0 gm OD DAILY [facility] Last Admin: 01/14/18 09:56 Dose: 1 applic Aspirin (Ecotrin) 81 mg PO DAILY [facility] Last Admin: 01/14/18 09:43 Dose: 81 mg Atorvastatin Calcium (Lipitor) 40 mg PO DAILY [facility] Last Admin: 01/14/18 09:43 Dose: 40 mg Docusate Sodium (Colace) 100 mg PO DAILY [facility] Last Admin: 01/14/18 09:43 Dose: 100 mg Gabapentin (Neurontin) 300 mg PO HS [facility] PRN Reason: Protocol Last Admin: 01/13/18 22:33 Dose: 300 mg Heparin Sodium (Porcine) (Heparin) 5,000 units SC Q8 [facility] PRN Reason: Protocol Last Admin: 01/14/18 14:47 Dose: 5,000 units Hydralazine HCl (Apresoline) 10 mg PO Q6H PRN PRN Reason: Systolic Blood Pressure Hydrochlorothiazide (Microzide) 25 mg PO QAM [facility] Losartan Potassium (Cozaar) 100 mg PO QAM [facility] Metoprolol Tartrate (Lopressor) 25 mg PO BID [facility] Pantoprazole Sodium (Protonix Ec Tab) 40 mg PO 0600 [facility] Last Admin: 01/14/18 05:23 Dose: 40 mg Paroxetine HCl (Paxil) 40 mg PO DAILY [facility] Last Admin: 01/14/18 09:42 Dose: 40 mg Tramadol HCl (Ultram) 50 mg PO Q6 PRN PRN Reason: Pain, moderate (4-7) Last Admin: 01/13/18 10:02 Dose: 50 mg - Labs Labs: PT 12.5 SECONDS (9.4-12.5) 01/12/18 16:34 INR 1.09 (0.93-1.08) H 01/12/18 16:34 APTT 28.0 Seconds (25.1-36.5) 01/12/18 16:34 - Constitutional Appears: Non-toxic, No Acute Distress - Head Exam Head Exam: ATRAUMATIC, NORMOCEPHALIC - Eye Exam Eye Exam: EOMI, PERRL. absent: Conjunctival injection, Nystagmus, Scleral icterus Pupil Exam: NORMAL ACCOMODATION, PERRL. absent: Fixed, Irregular, Unequal - ENT Exam ENT Exam: Mucous Membranes Moist - Neck Exam Neck Exam: Full ROM - Respiratory Exam Respiratory Exam: Clear to Ausculation Bilateral, NORMAL BREATHING PATTERN. absent: Accessory Muscle Use, Chest Wall Tenderness, Rales, Rhonchi, Wheezes, Respiratory Distress - Cardiovascular Exam Cardiovascular Exam: RRR, +S1, +S2. absent: Murmur - GI/Abdominal Exam GI & Abdominal Exam: Soft, Normal Bowel Sounds. absent: Distended, Firm, Guarding, Rigid, Tenderness, Hyperactive Bowel Sounds, Mass, Organomegaly, Rebound - Extremities Exam Extremities Exam: Normal Inspection, Tenderness. 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 Discussed with patient, who states that she has had prior radiation therapy 5 years ago (could not be removed due to high risks of brain injury at the time). Neurosurgery consulted: Gait instability: 2/2 deconditioning/fall - Left tibia and fibia xray(01/11/18): No fractures - Left hip xray: orthopedic prosthetic, no fracture, no dislocation, osteopenic - Left femur xray: proximal orthopedic prosthetic, no fracture, osteopenic - Left knee xray: no fracture, osteopenic - Patient unable to stand/walk unassisted - PT eval recommended [facility]. Awaiting addiction social worker to find placement as per insurance. - Fall precautions Left sided schwannoma: - pt has a history, treated 5 years ago - Brain MRI shows no ICH. A cystic and solid lesion in the left CP angle with the more solid component extending into and widened porus acusticus of the left internal auditory. 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 - Neurosurgery consult appreciated. Recommends outpatient radiosurgery eval for sterotactic radiosurgery. hx CAD s/p stents: - aspirin, statin Hx of [place] Palsy: - Stable at this time - Patient to follow up with neurology - Continue home medications DVT ppx: Heparin SQ GI PPX: Protonix Dispo: awaiting [facility] placement as per Case and plan discussed with attending Dr Anderson. Dasha Grimaldo, PGY1 <Michael Anderson - Last Filed: 01/14/18 15:44> Objective - Vital Signs/Intake and Output Vital Signs (last 24 hours): Temp Pulse Resp BP Pulse Ox 99.1 F 63 20 188/70 H 98 01/14/18 08:27 01/14/18 08:27 01/14/18 08:27 01/14/18 09:44 01/14/18 08:27 Intake and Output: 01/14/18 01/14/18 06:59 18:59 Intake Total 600 Output Total 500 Balance 100 - Medications Medications: Current Medications Acetaminophen (Tylenol 325mg Tab) 650 mg PO Q4H PRN PRN Reason: Headache Artificial Tears (Artificial Tears Opht Oint) 0 gm OD DAILY [facility] Last Admin: 01/14/18 09:56 Dose: 1 applic Aspirin (Ecotrin) 81 mg PO DAILY [facility] Last Admin: 01/14/18 09:43 Dose: 81 mg Atorvastatin Calcium (Lipitor) 40 mg PO DAILY [facility] Last Admin: 01/14/18 09:43 Dose: 40 mg Docusate Sodium (Colace) 100 mg PO DAILY [facility] Last Admin: 01/14/18 09:43 Dose: 100 mg Gabapentin (Neurontin) 300 mg PO HS [facility] PRN Reason: Protocol Last Admin: 01/13/18 22:33 Dose: 300 mg Heparin Sodium (Porcine) (Heparin) 5,000 units SC Q8 [facility] PRN Reason: Protocol Last Admin: 01/14/18 14:47 Dose: 5,000 units Hydralazine HCl (Apresoline) 10 mg PO Q6H PRN PRN Reason: Systolic Blood Pressure Hydrochlorothiazide (Microzide) 25 mg PO QAM [facility] Losartan Potassium (Cozaar) 100 mg PO QAM [facility] Metoprolol Tartrate (Lopressor) 25 mg PO BID [facility] Pantoprazole Sodium (Protonix Ec Tab) 40 mg PO 0600 [facility] Last Admin: 01/14/18 05:23 Dose: 40 mg Paroxetine HCl (Paxil) 40 mg PO DAILY [facility] Last Admin: 01/14/18 09:42 Dose: 40 mg Tramadol HCl (Ultram) 50 mg PO Q6 PRN PRN Reason: Pain, moderate (4-7) Last Admin: 01/13/18 10:02 Dose: 50 mg - Labs Labs: PT 12.5 SECONDS (9.4-12.5) 01/12/18 16:34 INR 1.09 (0.93-1.08) H 01/12/18 16:34 APTT 28.0 Seconds (25.1-36.5) 01/12/18 16:34 Attending/Attestation - Attestation I have personally seen and examined this patient.: Yes I have fully participated in the care of the patient.: Yes I have reviewed all pertinent clinical information, including history, physical exam and plan: Yes Notes (Text): 01/14/18 15:35 87 year old female with past medical history of CVA, CAD, hypertension, and Bailon 's palsy who presented with leg pain and gait instability s/p mechanical fall 2 days prior to admission. Xrays were negative for fracture. CT head showed cystic lesion which was followed up with MRI brain which showed cystic/solid lesion consistent with schwannoma. Patient reports this was diagnosed many years ago and she received treatment before. Neurology and neurosurgery evaluations were appreciated; recommended radiation therapy for stereotactic radiosurgery. Continue with home medications for CAD and hypertension. BP is elevated so her HCTZ will be increased. PT evaluation was appreciated who recommended [facility]. Michael Anderson MD Hospitalist.
[2018-01-15] MEDS: Pantoprazole 40 mg EC Tab PO SCH (05:48)
[2018-01-15 09:16] LABS: BASO # 0.02 K/mm3 (0.0-2.0); BASO % 0.2 % (0.0-3.0); EOS # 0.3 (0.0-0.7); EOS % 2.5 % (1.5-5.0); GRAN # 6.94 (1.4-6.5); GRAN % 66.4 % (50.0-68.0); HEMOGLOBIN 12.5 g/dL (12.0-16.0); LYMPH # 2.3 (1.2-3.4); LYMPH % 21.6 % (22.0-35.0); MEAN CELL VOLUME 86.4 fl (80.0-105.0); MEAN CORPUSCULAR HEMOGLOBIN 28.3 pg (25.0-35.0); MEAN CORPUSCULAR HGB CONC 32.8 g/dl (31.0-37.0); MEAN PLATELET VOLUME 9.3 fl (7.0-11.0); MONO % 9.3 % (1.0-6.0); RBC 4.41 10^6/uL (3.5-6.1); RED CELL DISTRIBUTION WIDTH 14.8 % (11.5-14.5); WHITE BLOOD COUNT 10.5 10^3/ul (4.5-11.0)
[2018-01-15 09:40] LABS: ALB/GLOB RATIO 1.4 (1.1-1.8); ALBUMIN 3.9 g/dL (3.0-4.8); ALT/SGPT 25 U/L (7-56); AST/SGOT 24 U/L (14-36); BLOOD UREA NITROGEN 15 mg/dL (7-21); CALCIUM 9.3 mg/dL (8.4-10.5); GFR AFRICAN-AMERICAN > 60; GFR NON-AFRICAN AMERICAN > 60
[2018-01-15] MEDS: Mineral Oil/Petrolatum Opht Oint(3.5 gm) OD SCH (09:42)
[2018-01-15] MEDS ORDERED: Potassium Chloride 20 mEq ER Tab PO STA (14:31)
--- NOTE | 2018-01-15 14:34 | CP.PCM.PN ---
<Dasha Grimaldo - Last Filed: 01/15/18 14:30> Subjective - Date & Time of Evaluation Date of Evaluation: 01/15/18 Time of Evaluation: 14:30 - Subjective Subjective: Patient seen and examined at bedside. No acute events overnight. Reports that her left leg pain is better today. Pt reports constipation since admission, would like something to help her. Denies fever, chills, nausea, vomiting, abdominal pain, leg swelling, urinary symptoms. Objective - Vital Signs/Intake and Output Vital Signs (last 24 hours): Temp Pulse Resp BP Pulse Ox 98.4 F 64 19 159/84 H 100 01/15/18 06:00 01/15/18 06:00 01/15/18 06:00 01/15/18 06:00 01/15/18 06:00 Intake and Output: 01/15/18 01/15/18 06:59 18:59 Intake Total 300 Output Total 200 Balance 100 - Medications Medications: Current Medications Acetaminophen (Tylenol 325mg Tab) 650 mg PO Q4H PRN PRN Reason: Headache Artificial Tears (Artificial Tears Opht Oint) 0 gm OD DAILY [facility] Last Admin: 01/15/18 09:42 Dose: 1 applic Aspirin (Ecotrin) 81 mg PO DAILY [facility] Last Admin: 01/15/18 09:43 Dose: 81 mg Atorvastatin Calcium (Lipitor) 40 mg PO DAILY [facility] Last Admin: 01/15/18 09:43 Dose: 40 mg Docusate Sodium (Colace) 100 mg PO BID [facility] Gabapentin (Neurontin) 300 mg PO HS [facility] PRN Reason: Protocol Last Admin: 01/14/18 21:18 Dose: 300 mg Heparin Sodium (Porcine) (Heparin) 5,000 units SC Q8 [facility] PRN Reason: Protocol Last Admin: 01/15/18 14:16 Dose: Not Given Hydralazine HCl (Apresoline) 10 mg PO Q6H PRN PRN Reason: Systolic Blood Pressure Hydrochlorothiazide (Microzide) 25 mg PO QAM [facility] Last Admin: 01/15/18 09:43 Dose: 25 mg Losartan Potassium (Cozaar) 100 mg PO QAM [facility] Last Admin: 01/15/18 09:43 Dose: 100 mg Metoprolol Tartrate (Lopressor) 25 mg PO BID [facility] Last Admin: 01/15/18 09:43 Dose: 25 mg Pantoprazole Sodium (Protonix Ec Tab) 40 mg PO 0600 [facility] Last Admin: 01/15/18 05:48 Dose: 40 mg Paroxetine HCl (Paxil) 40 mg PO DAILY [facility] Last Admin: 01/15/18 09:42 Dose: 40 mg Polyethylene Glycol (Miralax) 17 gm PO BID [facility] Tramadol HCl (Ultram) 50 mg PO Q6 PRN PRN Reason: Pain, moderate (4-7) Last Admin: 01/13/18 10:02 Dose: 50 mg - Labs Labs: 01/15/18 09:12 01/15/18 09:12 PT 12.5 SECONDS (9.4-12.5) 01/12/18 16:34 INR 1.09 (0.93-1.08) H 01/12/18 16:34 APTT 28.0 Seconds (25.1-36.5) 01/12/18 16:34 - Additional Findings Additional findings: - Constitutional Appears: Non-toxic, No Acute Distress - Head Exam Head Exam: ATRAUMATIC, NORMOCEPHALIC - Eye Exam Eye Exam: EOMI, PERRL. absent: Conjunctival injection, Nystagmus, Scleral icterus Pupil Exam: NORMAL ACCOMODATION, PERRL. absent: Fixed, Irregular, Unequal - ENT Exam ENT Exam: Mucous Membranes Moist - Neck Exam Neck Exam: Full ROM - Respiratory Exam Respiratory Exam: Clear to Ausculation Bilateral, NORMAL BREATHING PATTERN. absent: Accessory Muscle Use, Chest Wall Tenderness, Rales, Rhonchi, Wheezes, Respiratory Distress - Cardiovascular Exam Cardiovascular Exam: RRR, +S1, +S2. absent: Murmur - GI/Abdominal Exam GI & Abdominal Exam: Soft, Normal Bowel Sounds. absent: Distended, Firm, Guarding, Rigid, Tenderness, Hyperactive Bowel Sounds, Mass, Organomegaly, Rebound - Extremities Exam Extremities Exam: Normal Inspection, Tenderness. 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 Discussed schwannoma with patient, who states that she has had prior radiation therapy 5 years ago (could not be removed due to high risks of brain injury at the time). Neurosurgery consulted, who recommends outpatient radiosurgery eval: Gait instability: 2/2 deconditioning/fall - Left tibia and fibia xray(01/11/18): No fractures - Left hip xray: orthopedic prosthetic, no fracture, no dislocation, osteopenic - Left femur xray: proximal orthopedic prosthetic, no fracture, osteopenic - Left knee xray: no fracture, osteopenic - Patient unable to stand/walk unassisted - PT eval recommended [facility]. Awaiting aids social worker to find placement as per insurance. - Fall precautions Constipation: - increases colace to bid - Miralax bid - dulcolax suppository x1 Mild hypokalemia: 2/2 HCTZ use - repleted - monitor Left sided schwannoma: - pt has a history, treated 5 years ago - Brain MRI shows no ICH. A cystic and solid lesion in the left CP angle with the more solid component extending into and widened porus acusticus of the left internal auditory. 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 - Neurosurgery consult appreciated. Recommends outpatient radiosurgery eval for sterotactic radiosurgery. hx CAD s/p stents: - aspirin, statin Hx of [place] Palsy: - Stable at this time - Patient to follow up with neurology - Continue home medications DVT ppx: Heparin SQ GI PPX: Protonix Dispo: awaiting [facility] placement as per Case and plan discussed with attending Dr Anderson. Dasha Grimaldo, PGY1 <Michael Anderson - Last Filed: 01/15/18 14:55> Objective - Vital Signs/Intake and Output Vital Signs (last 24 hours): Temp Pulse Resp BP Pulse Ox 98.4 F 64 19 159/84 H 100 01/15/18 06:00 01/15/18 06:00 01/15/18 06:00 01/15/18 06:00 01/15/18 06:00 Intake and Output: 01/15/18 01/15/18 06:59 18:59 Intake Total 300 Output Total 200 Balance 100 - Medications Medications: Current Medications Acetaminophen (Tylenol 325mg Tab) 650 mg PO Q4H PRN PRN Reason: Headache Artificial Tears (Artificial Tears Opht Oint) 0 gm OD DAILY [facility] Last Admin: 01/15/18 09:42 Dose: 1 applic Aspirin (Ecotrin) 81 mg PO DAILY [facility] Last Admin: 01/15/18 09:43 Dose: 81 mg Atorvastatin Calcium (Lipitor) 40 mg PO DAILY [facility] Last Admin: 01/15/18 09:43 Dose: 40 mg Docusate Sodium (Colace) 100 mg PO BID [facility] Gabapentin (Neurontin) 300 mg PO HS [facility] PRN Reason: Protocol Last Admin: 01/14/18 21:18 Dose: 300 mg Heparin Sodium (Porcine) (Heparin) 5,000 units SC Q8 [facility] PRN Reason: Protocol Last Admin: 01/15/18 14:16 Dose: Not Given Hydralazine HCl (Apresoline) 10 mg PO Q6H PRN PRN Reason: Systolic Blood Pressure Hydrochlorothiazide (Microzide) 25 mg PO QAM [facility] Last Admin: 01/15/18 09:43 Dose: 25 mg Losartan Potassium (Cozaar) 100 mg PO QAM [facility] Last Admin: 01/15/18 09:43 Dose: 100 mg Metoprolol Tartrate (Lopressor) 25 mg PO BID [facility] Last Admin: 01/15/18 09:43 Dose: 25 mg Pantoprazole Sodium (Protonix Ec Tab) 40 mg PO 0600 [facility] Last Admin: 01/15/18 05:48 Dose: 40 mg Paroxetine HCl (Paxil) 40 mg PO DAILY [facility] Last Admin: 01/15/18 09:42 Dose: 40 mg Polyethylene Glycol (Miralax) 17 gm PO BID [facility] Tramadol HCl (Ultram) 50 mg PO Q6 PRN PRN Reason: Pain, moderate (4-7) Last Admin: 01/13/18 10:02 Dose: 50 mg - Labs Labs: 01/15/18 09:12 01/15/18 09:12 PT 12.5 SECONDS (9.4-12.5) 01/12/18 16:34 INR 1.09 (0.93-1.08) H 01/12/18 16:34 APTT 28.0 Seconds (25.1-36.5) 01/12/18 16:34 Attending/Attestation - Attestation I have personally seen and examined this patient.: Yes I have fully participated in the care of the patient.: Yes I have reviewed all pertinent clinical information, including history, physical exam and plan: Yes Notes (Text): 01/15/18 14:53 87 year old female with past medical history of CVA, CAD, hypertension, and Bailon 's palsy who presented with leg pain and gait instability s/p mechanical fall 2 days prior to admission. Xrays were negative for fracture. CT head showed cystic lesion which was followed up with MRI brain which showed cystic/solid lesion consistent with schwannoma. Patient reports this was diagnosed many years ago and she received treatment before. Neurosurgery evaluation was appreciated; recommended radiation therapy for stereotactic radiosurgery. Neurology evaluation was appreciated as well; ordered for MRI spine. Continue with home medications for CAD and hypertension. HCTZ was increased yesterday and BP has improved. Will replete and repeat potassium. Miralax is added for constipation. PT evaluation was appreciated who recommended [facility]. Michael Anderson MD Hospitalist.
--- NOTE | 2018-01-15 17:11 | MRI ---
PROCEDURE: MR LUMBAR SPINE WITHOUT CONTRAST HISTORY: Lower extremity weakness. COMPARISON: Comparison made with CT scan of the abdomen pelvis 03/31/2017 which imaged the lumbar spine in 3 planes. Comparison also made with the dedicated CT scan lumbar spine 03/13/2015. . Correlation also made with the CT scan of the thoracic and upper lumbar spine 02/02/2017. TECHNIQUE: Multiecho multiplanar sequences were performed through the lumbar spine without the use of intravenous contrast. FINDINGS: No acute compression fractures no retropulsed fragments. Vertebral bodies exhibit relatively normal stature aside from mild multilevel fish-mouth endplate deformities. The marrow signal is quite heterogeneous nonspecific. Conus unremarkable. There is a transitional vertebral body segment that appears represent a sacralized L5 segment. This will be named L5 for healing issues in continuity. T12-L1: Degenerative spondylosis with no significant compression of the or intrathecal nerve roots of the cauda equina. Facets are mildly hypertrophic. L1-2: Disc desiccation. Disc space height relatively maintained. There is an asymmetric central and right paracentral disc protrusion that extends into the proximal inferior margin of the left exit foramen with minimal bulge of the remaining annulus that extends slightly into the proximal margin of the left exit foramen. Compressive effects along the anterolateral border of the thecal sac more so on the right side. Central canal measured at midline is adequate. Facets are hypertrophic. Exit foramina adequate. L2-3: Disc desiccation and mild posterior disc space narrowing. Small broad-based bulge of the irregular bulge of the posterior annulus results in irregular compressive effects on the ventral surface of the thecal sac. Facets are also hypertrophic. Lateral recesses are narrowed. Central canal is mildly narrowed as well. Exit foramina are marginal on the left and adequate on the right. L3-4: There is [id number] age related disc desiccation and posterior disc space narrowing with small broad-based bulge of the posterior annulus with slight extension into the proximal inferior margins of both exit foramina. . Facet joints are hypertrophic. Central canal appears adequate despite some minimal flattening of the ventral surface of the thecal sac. Exit foramina marginal to minimally narrowed. On the left and marginal to adequate on the right. L4-5: Disc desiccation and disc space narrowing more so along the posterior disc margin. Small broad-based disc bulge ridge complex extends into the proximal inferior margins of both exit foramina. There is some flattening of the ventral surface of the thecal sac however the overall central canal appears adequate measured at midline. Facets are hypertrophic and compress the posterolateral borders of the thecal sac. Exit foramina are marginal to slightly narrowed bilaterally more so on the right. L5-S1: Intradiscal calcification; questionable partial rudimentary disc space. No disc herniation or significant disc bulge. Facets are mildly hypertrophic. Central canal appears adequate. Exit foramina are adequate OTHER FINDINGS: Incidental note made of a small Tarlov cyst midline at the lower S1-S2 level IMPRESSION: No acute fractures however mild multilevel chronic appearing fish-mouth endplate deformities are present. Multilevel degenerative spondylosis most notably affecting the L2-L3 level as above.
[2018-01-15] MEDS: POLYETHYLENE GLYCOL 3350 17 GM/Dose PACKET PO SCH (17:14)
--- NOTE | 2018-01-15 17:19 | MRI ---
PROCEDURE: MRI thoracic spine dated 01/15/2018 HISTORY: Lower extremity weakness COMPARISON: Comparison made with CT scan CTA chest dated 02/02/2017 which image the thoracic spine in 3 planes 02/02/2017. TECHNIQUE: Multiecho multiplanar sequences were performed through the thoracic spine without the use of intravenous contrast. Note the examination is limited by motion artifact FINDINGS: ALIGNMENT: The current study reveals no acute compression fractures nor retropulsed fragments. Mild multilevel fish-mouth endplate deformities are seen throughout of. There is what appears represent a small hemangioma within the T6 segment unchanged. . The remaining vertebral bodies exhibit heterogeneous marrow signal changes which are nonspecific. Mild multilevel disc desiccation changes are seen throughout. Multilevel disc desiccation however disc space heights relatively maintained. No disc herniations nor significant disc bulges. . The overall central bony canal appears adequate throughout. No definitive intrinsic signal changes are identified within the visualized thoracic spinal cord. . Note is made of what appear to represent flow related CSF artifact changes in the canal dorsal to the spinal cord in the upper and mid thoracic region. Paraspinal soft tissues appear grossly unremarkable. IMPRESSION: No acute compression fractures however mild multilevel chronic appearing fish-mouth endplate deformities seen throughout. No disc herniations nor significant disc bulges. No evidence of canal compromise nor cord compression. Exit foramina appear adequate. The no definitive intrinsic signal changes seen within the visualized spinal cord.
[2018-01-16] MEDS: Pantoprazole 40 mg EC Tab PO SCH (06:08)
[2018-01-16 06:30] LABS: BASO # 0.02 K/mm3 (0.0-2.0); BASO % 0.2 % (0.0-3.0); EOS # 0.3 (0.0-0.7); EOS % 2.5 % (1.5-5.0); GRAN # 6.11 (1.4-6.5); GRAN % 57.1 % (50.0-68.0); HEMOGLOBIN 11.3 g/dL (12.0-16.0); LYMPH # 3.1 (1.2-3.4); MEAN CELL VOLUME 86.9 fl (80.0-105.0); MEAN CORPUSCULAR HEMOGLOBIN 27.5 pg (25.0-35.0); MEAN CORPUSCULAR HGB CONC 31.7 g/dl (31.0-37.0); MEAN PLATELET VOLUME 9.4 fl (7.0-11.0); MONO # 1.2 (0.1-0.6); MONO % 11.2 % (1.0-6.0); RBC 4.11 10^6/uL (3.5-6.1); RED CELL DISTRIBUTION WIDTH 14.9 % (11.5-14.5); WHITE BLOOD COUNT 10.7 10^3/ul (4.5-11.0)
[2018-01-16 06:59] LABS: ALB/GLOB RATIO 1.3 (1.1-1.8); ALBUMIN 3.6 g/dL (3.0-4.8); ALT/SGPT 31 U/L (7-56); AST/SGOT 24 U/L (14-36); BLOOD UREA NITROGEN 19 mg/dL (7-21); CALCIUM 9.2 mg/dL (8.4-10.5); GFR AFRICAN-AMERICAN > 60; GFR NON-AFRICAN AMERICAN > 60
--- NOTE | 2018-01-16 07:31 | CP.PCM.PN ---
Subjective - Date & Time of Evaluation Date of Evaluation: 01/16/18 Time of Evaluation: 08:15 - Subjective Subjective: PGY2 Neuro progress note for Dr. Cuevas Patient seen and examined at bedside. Nursing reports no acute events overnight. Patient continues to complain of L leg pain but reports it is controlled with medications. Denied acute complaints of headache, dizziness, blurry vision, chest pain, palpitations, SOB, cough, abd pain, nausea, vomiting , bowel/bladder complaints, swelling in her legs b/l. Patient was sitting up in bed, in NAD, and eating her breakfast when I saw her. Objective - Vital Signs/Intake and Output Vital Signs (last 24 hours): Temp Pulse Resp BP Pulse Ox 98.3 F 66 19 168/75 H 97 01/15/18 16:00 01/15/18 16:00 01/15/18 16:00 01/15/18 16:00 01/15/18 16:00 Intake and Output: 01/16/18 01/16/18 06:59 18:59 Intake Total 420 Output Total 200 Balance 220 - Medications Medications: Current Medications Acetaminophen (Tylenol 325mg Tab) 650 mg PO Q4H PRN PRN Reason: Headache Artificial Tears (Artificial Tears Opht Oint) 0 gm OD DAILY [facility] Last Admin: 01/15/18 09:42 Dose: 1 applic Aspirin (Ecotrin) 81 mg PO DAILY [facility] Last Admin: 01/15/18 09:43 Dose: 81 mg Atorvastatin Calcium (Lipitor) 40 mg PO DAILY [facility] Last Admin: 01/15/18 09:43 Dose: 40 mg Docusate Sodium (Colace) 100 mg PO BID [facility] Last Admin: 01/15/18 17:14 Dose: 100 mg Gabapentin (Neurontin) 300 mg PO HS [facility] PRN Reason: Protocol Last Admin: 01/15/18 21:50 Dose: 300 mg Heparin Sodium (Porcine) (Heparin) 5,000 units SC Q8 [facility] PRN Reason: Protocol Last Admin: 01/16/18 06:08 Dose: 5,000 units Hydralazine HCl (Apresoline) 10 mg PO Q6H PRN PRN Reason: Systolic Blood Pressure Hydrochlorothiazide (Microzide) 25 mg PO QAM [facility] Last Admin: 01/15/18 09:43 Dose: 25 mg Losartan Potassium (Cozaar) 100 mg PO QAM [facility] Last Admin: 01/15/18 09:43 Dose: 100 mg Metoprolol Tartrate (Lopressor) 25 mg PO BID [facility] Last Admin: 01/15/18 17:14 Dose: 25 mg Pantoprazole Sodium (Protonix Ec Tab) 40 mg PO 0600 [facility] Last Admin: 01/16/18 06:08 Dose: 40 mg Paroxetine HCl (Paxil) 40 mg PO DAILY [facility] Last Admin: 01/15/18 09:42 Dose: 40 mg Polyethylene Glycol (Miralax) 17 gm PO BID [facility] Last Admin: 01/15/18 17:14 Dose: 17 gm Tramadol HCl (Ultram) 50 mg PO Q6 PRN PRN Reason: Pain, moderate (4-7) Last Admin: 01/13/18 10:02 Dose: 50 mg - Labs Labs: 01/16/18 06:00 01/16/18 06:00 PT 12.5 SECONDS (9.4-12.5) 01/12/18 16:34 INR 1.09 (0.93-1.08) H 01/12/18 16:34 APTT 28.0 Seconds (25.1-36.5) 01/12/18 16:34 - Constitutional Appears: Non-toxic, No Acute Distress - Head Exam Head Exam: ATRAUMATIC, NORMAL INSPECTION, NORMOCEPHALIC - Eye Exam Eye Exam: Periorbital swelling (left), Periorbital tenderness (left), PERRL. absent: Conjunctival injection, Scleral icterus - ENT Exam ENT Exam: Mucous Membranes Moist - Respiratory Exam Respiratory Exam: NORMAL BREATHING PATTERN. absent: Accessory Muscle Use, Respiratory Distress - Cardiovascular Exam Cardiovascular Exam: +S1, +S2 - GI/Abdominal Exam GI & Abdominal Exam: Soft. absent: Tenderness - Rectal Exam Rectal Exam: Deferred - Neurological Exam Neurological Exam: Alert, Awake, Oriented x3 Additional comments: L facial droop consistent with hx of Bailon's Palsy - Psychiatric Exam Psychiatric exam: Normal Affect, Normal Mood - Skin Skin Exam: Dry, Intact, Normal Color, Warm Assessment and Plan - Assessment and Plan (Free Text) Assessment: 87yo female PMHx CVA, [place], CAD, HTN, HLD, Bailon's palsy affecting L side of her face presented to [facility] s/p fall. Plan: -Brain MRI: no ICH. A cystic and solid lesion in the left CP angle with the more solid component extending into and widened porus acusticus of the left internal auditory. 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 -Thoracic/Lumbar spine MRI: no acute fracture; no evidence of nerve root or spinal injury -recommend outpatient neurosurgical management of [facility] -recommend [facility] upon discharge -continue medical management -f/u with Neurology upon discharge Neurology will sign off at this time Discussed with Dr. Mason Bustos PGY2
[2018-01-16] MEDS ORDERED: Potassium Chloride 20 mEq ER Tab PO ONE (08:21)
[2018-01-16] MEDS: Mineral Oil/Petrolatum Opht Oint(3.5 gm) OD SCH (09:13)
[2018-01-16] MEDS: POLYETHYLENE GLYCOL 3350 17 GM/Dose PACKET PO SCH ×2 (09:15→18:05)
--- NOTE | 2018-01-16 13:09 | CP.PCM.CON ---
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 On September 27, 2017, she presented with a left facial droop for one week as well as dizziness. She had a CT of the head on September 27, 2017 which revealed no acute findings. On September 28, 2017, she had a CTA of the head for dizziness. There was no evidence of occlusion or stenosis. Most recently, her dizziness has been getting worse. She fell, and was brought to [facility] for further evaluation. A CT of the head on January 10, 2018 revealed a soft tissue swelling/hematology of the left frontal scalp and periorbital tissue. A MRI of the brain on January 13, 2018, she had an elliptical shaped cystic lesion in the left CP angle cistern that was associated with a warm solid component along the medial border extending to the left sided jamila acousticus of the internal auditory canal. She was evaluated by neurosurgery and not a candidate. She had radiosurgery of the left acoustic schwannoma in 2008 at [facility]. We are asked to see this patient for our input. Review of Systems - EENT Eyes: Blurred Vision Ears: Decreased Hearing, Disequilibrium - Neurological Neurological: Abnormal Hearing Past Patient History - Infectious Disease Hx of Infectious Diseases: None - Tetanus Immunizations Tetanus Immunization: Unknown - Past Medical History & Family History Past Medical History?: Yes - Past Social History Alcohol: None - CARDIAC Hx Cardiac Disorders: Yes ([place],) Hx Hypertension: Yes - PULMONARY Hx Asthma: Yes - NEUROLOGICAL HX Cerebrovascular Accident: Yes Other/Comment: left reeves's palsy for 2 months - HEENT Hx Cataracts: Yes (WITH BILATERAL SURGERY) Other/Comment: h/o left schwannoma status post radiosurgery in 2008 at [facility] - RENAL Hx Chronic Kidney Disease: Yes Hx Kidney Stones: Yes (RIGHT SIDE) - ENDOCRINE/METABOLIC Hx Endocrine Disorders: No - HEMATOLOGICAL/ONCOLOGICAL Hx Blood Disorders: (blood transfusion) Hx Cancer: Yes - INTEGUMENTARY Hx Dermatological Problems: No - MUSCULOSKELETAL/RHEUMATOLOGICAL Hx Musculoskeletal Disorders: Yes (CERVICAL) - GASTROINTESTINAL Hx 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) - GENITOURINARY/GYNECOLOGICAL Hx Genitourinary Disorders: Yes (incontinent at times post op, starting to use bathroom with assist) - PSYCHIATRIC Hx Psychophysiologic Disorder: Yes Hx Anxiety: Yes Hx Substance Use: No - SURGICAL HISTORY Hx Cardiac Catheterization: Yes Hx Coronary Stent: Yes (08/2013) Hx Orthopedic Surgery: Yes (left femur) 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, cholecystectomy, cataract surgery - ANESTHESIA Hx Anesthesia: Yes Hx Anesthesia Reactions: No Hx Malignant Hyperthermia: No Meds Allergies/Adverse Reactions: Allergies Allergy/AdvReac Type Severity Reaction Status Date / Time lactose Allergy Intermediate VOMITING Verified 11/23/17 18:46 VEGETABLES AdvReac Intermediate DIARRHEA/BL Uncoded 11/23/17 18:46 OATING - Medications Medications: Current Medications Acetaminophen (Tylenol 325mg Tab) 650 mg PO Q4H PRN PRN Reason: Headache Artificial Tears (Artificial Tears Opht Oint) 0 gm OD DAILY [facility] Last Admin: 01/16/18 09:13 Dose: 1 applic Aspirin (Ecotrin) 81 mg PO DAILY [facility] Last Admin: 01/16/18 09:11 Dose: 81 mg Atorvastatin Calcium (Lipitor) 40 mg PO DAILY [facility] Last Admin: 01/16/18 09:11 Dose: 40 mg Docusate Sodium (Colace) 100 mg PO BID [facility] Last Admin: 01/16/18 09:13 Dose: 100 mg Gabapentin (Neurontin) 300 mg PO HS [facility] PRN Reason: Protocol Last Admin: 01/15/18 21:50 Dose: 300 mg Heparin Sodium (Porcine) (Heparin) 5,000 units SC Q8 [facility] PRN Reason: Protocol Last Admin: 01/16/18 06:08 Dose: 5,000 units Hydralazine HCl (Apresoline) 10 mg PO Q6H PRN PRN Reason: Systolic Blood Pressure Hydrochlorothiazide (Microzide) 25 mg PO QAM [facility] Last Admin: 01/16/18 09:10 Dose: 25 mg Losartan Potassium (Cozaar) 100 mg PO QAM [facility] Last Admin: 01/16/18 09:11 Dose: 100 mg Metoprolol Tartrate (Lopressor) 25 mg PO BID [facility] Last Admin: 01/16/18 09:11 Dose: 25 mg Pantoprazole Sodium (Protonix Ec Tab) 40 mg PO 0600 [facility] Last Admin: 01/16/18 06:08 Dose: 40 mg Paroxetine HCl (Paxil) 40 mg PO DAILY [facility] Last Admin: 01/16/18 09:11 Dose: 40 mg Polyethylene Glycol (Miralax) 17 gm PO BID [facility] Last Admin: 01/16/18 09:15 Dose: Not Given Tramadol HCl (Ultram) 50 mg PO Q6 PRN PRN Reason: Pain, moderate (4-7) Last Admin: 01/13/18 10:02 Dose: 50 mg Physical Exam - Head Exam Additional comments: periorbital edema and ecchymoses from her recent fall - Eye Exam Additional comments: slightly disconjugate left lateral gaze, superior gaze and at rest - Respiratory Exam Respiratory Exam: Clear to Auscultation Bilateral - Cardiovascular Exam Cardiovascular Exam: REGULAR RHYTHM - GI/Abdominal Exam GI & Abdominal Exam: Normal Bowel Sounds - Neurological Exam Neurological exam: Oriented x3 Additional comments: left hearing loss and left CN VII palsy Results - Vital Signs Recent Vital Signs: Last Vital Signs Temp 98.9 F 01/16/18 08:49 Pulse 65 01/16/18 09:11 Resp 20 01/16/18 08:49 BP 163/72 H 01/16/18 09:11 Pulse Ox 98 01/16/18 08:49 - Labs Result Diagrams: 01/16/18 06:00 01/16/18 06:00 Labs: Laboratory Results - last 24 hr 01/16/18 01/16/18 06:00 06:00 WBC 10.7 RBC 4.11 Hgb 11.3 L Hct 35.7 L MCV 86.9 MCH 27.5 MCHC 31.7 RDW 14.9 H Plt Count 255 MPV 9.4 Gran % 57.1 Lymph % (Auto) 29.0 [place] % (Auto) 11.2 H Eos % (Auto) 2.5 Baso % (Auto) 0.2 Gran # 6.11 Lymph # (Auto) 3.1 [place] # (Auto) 1.2 H Eos # (Auto) 0.3 Baso # (Auto) 0.02 Sodium 143 Potassium 3.5 L Chloride 103 Carbon Dioxide 30 Anion Gap 13 BUN 19 Creatinine 0.7 Est GFR ( Amer) > 60 Est GFR (Non-Af Amer) > 60 Random Glucose 106 Calcium 9.2 Total Bilirubin 0.9 AST 24 ALT 31 Alkaline Phosphatase 92 Total Protein 6.4 Albumin 3.6 Globulin 2.8 Albumin/Globulin Ratio 1.3 Assessment & Plan - Assessment and Plan (Free Text) Assessment: Ms Mitchell is a 87 year old female with a long-standing history of a left acoustic schwannoma status post radiosurgery in 2008 at [facility]. She has new cranial nerve deficits including left facial nerve palsy and worsening dizziness. It is unclear whether she has had progression and increased growth of her schwannoma since we do not have her previous MRI scans of her schwannoma. If she requires re-irradiation, she would best be served with proton therapy at [facility] in [facility][note 3] given the proximity of the tumor to critical structures including brainstem which was previously treated with cyberknife.
[2018-01-16 17:49] VITALS: BP 141/62; PULSE 73; RESP 19; TEMP 98.6; O2SAT 96
--- NOTE | 2018-01-16 20:11 | CP.PCM.DIS ---
<Smith Velez - Last Filed: 01/16/18 19:58> Provider - Provider Date of Admission: 01/12/18 19:18 Attending physician: Gia Brand MD Primary care physician: Magali Rodriguez MD Consults: Neuro - [facility] - [facility] Radiation Onc - Vicki Time Spent in preparation of Discharge (in minutes): 60 Hospital Course - Lab Results Lab Results: Most Recent Lab Values WBC 10.7 10^3/ul (4.5-11.0) 01/16/18 06:00 RBC 4.11 10^6/uL (3.5-6.1) 01/16/18 06:00 Hgb 11.3 g/dL (12.0-16.0) L 01/16/18 06:00 Hct 35.7 % (36.0-48.0) L 01/16/18 06:00 MCV 86.9 fl (80.0-105.0) 01/16/18 06:00 MCH 27.5 pg (25.0-35.0) 01/16/18 06:00 MCHC 31.7 g/dl (31.0-37.0) 01/16/18 06:00 RDW 14.9 % (11.5-14.5) H 01/16/18 06:00 Plt Count 255 10^3/uL (120.0-450.0) 01/16/18 06:00 MPV 9.4 fl (7.0-11.0) 01/16/18 06:00 Gran % 57.1 % (50.0-68.0) 01/16/18 06:00 Lymph % (Auto) 29.0 % (22.0-35.0) 01/16/18 06:00 [place] % (Auto) 11.2 % (1.0-6.0) H 01/16/18 06:00 Eos % (Auto) 2.5 % (1.5-5.0) 01/16/18 06:00 Baso % (Auto) 0.2 % (0.0-3.0) 01/16/18 06:00 Gran # 6.11 (1.4-6.5) 01/16/18 06:00 Lymph # (Auto) 3.1 (1.2-3.4) 01/16/18 06:00 [place] # (Auto) 1.2 (0.1-0.6) H 01/16/18 06:00 Eos # (Auto) 0.3 (0.0-0.7) 01/16/18 06:00 Baso # (Auto) 0.02 K/mm3 (0.0-2.0) 01/16/18 06:00 PT 12.5 SECONDS (9.4-12.5) 01/12/18 16:34 INR 1.09 (0.93-1.08) H 01/12/18 16:34 APTT 28.0 Seconds (25.1-36.5) 01/12/18 16:34 pO2 32 mm/Hg (30-55) 01/12/18 16:34 VBG pH 7.37 (7.32-7.43) 01/12/18 16:34 VBG pCO2 59.0 (40-60) 01/12/18 16:34 VBG HCO3 34.1 mmol/l (21-28) H 01/12/18 16:34 VBG Total CO2 35.9 mmol.L (22-28) H 01/12/18 16:34 VBG O2 Sat (Calc) 66.1 % (40-65) H 01/12/18 16:34 VBG Base Excess 6.9 mmol/L (0.0-2.0) H 01/12/18 16:34 VBG Potassium 3.5 mmol/L (3.6-5.2) L 01/12/18 16:34 Sodium 139.0 mmol/L (132-148) 01/12/18 16:34 Chloride 104.0 mmol/L (98-107) 01/12/18 16:34 Glucose 91 mg/dl (65-105) 01/12/18 16:34 Lactate 0.8 mmol/L (0.7-2.1) 01/12/18 16:34 FiO2 21.0 % 01/12/18 16:34 Sodium 143 mmol/L (132-148) 01/16/18 06:00 Potassium 3.5 mmol/L (3.6-5.0) L 01/16/18 06:00 Chloride 103 mmol/L (98-107) 01/16/18 06:00 Carbon Dioxide 30 mmol/L (21-33) 01/16/18 06:00 Anion Gap 13 (10-20) 01/16/18 06:00 BUN 19 mg/dL (7-21) 01/16/18 06:00 Creatinine 0.7 mg/dl (0.7-1.2) 01/16/18 06:00 Est GFR ( Amer) > 60 01/16/18 06:00 Est GFR (Non-Af Amer) > 60 01/16/18 06:00 Random Glucose 106 mg/dL (70-110) 01/16/18 06:00 Calcium 9.2 mg/dL (8.4-10.5) 01/16/18 06:00 Total Bilirubin 0.9 mg/dL (0.2-1.3) 01/16/18 06:00 AST 24 U/L (14-36) 01/16/18 06:00 ALT 31 U/L (7-56) 01/16/18 06:00 Alkaline Phosphatase 92 U/L (38-126) 01/16/18 06:00 Total Creatine Kinase 46 U/L (35-230) 01/12/18 16:34 Troponin I < 0.01 ng/mL 01/12/18 16:34 Total Protein 6.4 g/dL (5.8-8.3) 01/16/18 06:00 Albumin 3.6 g/dL (3.0-4.8) 01/16/18 06:00 Globulin 2.8 gm/dL 01/16/18 06:00 Albumin/Globulin Ratio 1.3 (1.1-1.8) 01/16/18 06:00 Lipase 110 U/L (23-300) 01/12/18 16:34 Venous Blood Potassium 3.5 mmol/L (3.6-5.2) L 01/12/18 16:34 Urine Color Light yellow (YELLOW) 01/13/18 18:32 Urine Appearance Clear (CLEAR) 01/13/18 18:32 Urine pH 6.5 (4.7-8.0) 01/13/18 18:32 Ur Specific [place] 1.015 (1.005-1.035) 01/13/18 18:32 Urine Protein Negative mg/dL (<30 mg/dL) 01/13/18 18:32 Urine Glucose (UA) Negative mg/dL (NEGATIVE) 01/13/18 18:32 Urine Ketones Negative mg/dL (NEGATIVE) 01/13/18 18:32 Urine Blood Small (NEGATIVE) H 01/13/18 18:32 Urine Nitrate Negative (NEGATIVE) 01/13/18 18:32 Urine Bilirubin Negative (NEGATIVE) 01/13/18 18:32 Urine Urobilinogen 0.2 E.U./dL (<1 E.U./dL) 01/13/18 18:32 Ur Leukocyte Esterase Negative Taylor/uL (NEGATIVE) 01/13/18 18:32 Urine RBC 0 - 2 /hpf (0-2) 01/13/18 18:32 Urine WBC 0 - 2 /hpf (0-6) 01/13/18 18:32 Ur Epithelial Cells 0 - 2 /hpf (0-5) 01/13/18 18:32 Urine Bacteria Neg (NEG) 01/13/18 18:32 - Hospital Course Hospital Course: As per admission documentation, 87 year old female with past medical history of CVA, [place], CAD, HTN, HLD, 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 Patient had fall 2 days ago and presented to [facility] at that time was evaluated with CT and left lower xray which were negative. Patient was discharged to home. Presents to ED after being bedridden secondary to pain associated with fall. Patietn indicates inability to bear weight to left leg and requires assistance to toilet. She reports weakness/pain with left lower extremity. Patient also with history of bailon's palsy with left side of her face being swollen/numbness. Patient reports bailon's palsy symptoms is stable at this time. 12 point ROS benign other than mentioned in HPI. Hospital Course Patient was admitted to the hospital due to de-conditioning after a fall. Neurology, Dr. Toney was consulted. Patient was diagnosed with Bailon's Palsy. She was treated with artificial tears and eye patch to protect her left eye. Neuro Surgery, Dr. Dee was consulted due to Schwannoma seen on MRI. Recommends outpt follow up with previous radiation onc due to close proximity to important structures. Radiation Onc Dr. Cohen recommends follow up with [facility] in [place], [place] if re-irradiation is recommended. Patient was stable throughout her hospital stay. Patient was seen by PT, who recommended follow up with [facility]. She also complained of constipation which resolved with colace, miralax and dulcolax suppository. - Left tibia and fibia xray(01/11/18): No fractures - Left hip xray: orthopedic prosthetic, no fracture, no dislocation, osteopenic - Left femur xray: proximal orthopedic prosthetic, no fracture, osteopenic - Left knee xray: no fracture, osteopenic - Brain MRI shows no ICH. A cystic and solid lesion in the left CP angle with the more solid component extending into and widened porus acusticus of the left internal auditory. 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 Discharge Instructions - Patient is to be discharged to [facility] at [facility]. - Please continue medications as directed. - On brain MRI, you were found to have a cystic and solid lesion in left CP angle, c/w Jose B nerve sheath schwannoma. The nurse will be providing you with a copy of the MRI report. Please follow up with previous radiation surgery at [facility] to be evaluated for possible re-irradiation upon discharge from [facility]. It is important to follow up with previous radiation surgery team as they will know if patient has had progression and increased growth of her Schwannoma. - If patient requires re-irradiation, please follow up with [facility] in [place], [place]. Patient would best be served with proton therapy at [facility] given the proximity of the tumor to critical structures including Brainstem which was previously treated. - Please keep eye patch on left eye. Use artificial tears in left eye. - Please use Ten's unit for electrical stimulation of left side of face. Dx. Left sided Bailon's Palsy. - Please take care and heal fast. This is just a brief summary of the patient's hospital events. For full detail, please see EMR. Physical Exam Appears: Non-toxic, No Acute Distress Head Exam: ATRAUMATIC, NORMOCEPHALIC Eye Exam: Periorbital swelling (left), Periorbital tenderness (left), PERRL. absent: Conjunctival injection, Scleral icterus ENT Exam: Mucous Membranes Moist Respiratory Exam: NORMAL BREATHING PATTERN. absent: Accessory Muscle Use, Respiratory Distress Cardiovascular Exam: RRR +S1, +S2 GI & Abdominal Exam: Soft. absent: Tenderness Neurological Exam: Alert, Awake, Oriented x3, L facial droop consistent with hx of Bailon's Palsy Psychiatric exam: Normal Affect, Normal Mood Skin Exam: Dry, Warm Discharge Exam - Head Exam Head Exam: ATRAUMATIC, NORMAL INSPECTION, NORMOCEPHALIC Discharge Plan - Follow Up Plan Condition: STABLE Disposition: TRANSF TO SNF Instructions: Preventing Falls in the Older Adult, Contusion (DC), Minor Head Injury (DC) Additional Instructions: - Patient is to be discharged to [facility] at [facility]. - Please continue medications as directed. - On brain MRI, you were found to have a cystic and solid lesion in left CP angle, c/w Jose B nerve sheath schwannoma. The nurse will be providing you with a copy of the MRI report. Please follow up with previous radiation surgery at [facility] to be evaluated for possible re-irradiation upon discharge from [facility]. It is important to follow up with previous radiation surgery team as they will know if patient has had progression and increased growth of her Schwannoma. - If patient requires re-irradiation, please follow up with [facility] in [place], [place]. Patient would best be served with proton therapy at [facility] given the proximity of the tumor to critical structures including Brainstem which was previously treated. - Please keep eye patch on left eye. Use artificial tears in left eye. - Please use Ten's unit for electrical stimulation of left side of face. Dx. Left sided Bailon's Palsy. - Please take care and heal fast. Referrals: Magali Beckham MD [Primary Care Provider] - <Gia Brand - Last Filed: 01/17/18 13:47> Provider - Provider Date of Admission: 01/12/18 19:18 Attending physician: Gia Brand MD Primary care physician: Magali Rodriguez MD Hospital Course - Lab Results Lab Results: Most Recent Lab Values WBC 10.7 10^3/ul (4.5-11.0) 01/16/18 06:00 RBC 4.11 10^6/uL (3.5-6.1) 01/16/18 06:00 Hgb 11.3 g/dL (12.0-16.0) L 01/16/18 06:00 Hct 35.7 % (36.0-48.0) L 01/16/18 06:00 MCV 86.9 fl (80.0-105.0) 01/16/18 06:00 MCH 27.5 pg (25.0-35.0) 01/16/18 06:00 MCHC 31.7 g/dl (31.0-37.0) 01/16/18 06:00 RDW 14.9 % (11.5-14.5) H 01/16/18 06:00 Plt Count 255 10^3/uL (120.0-450.0) 01/16/18 06:00 MPV 9.4 fl (7.0-11.0) 01/16/18 06:00 Gran % 57.1 % (50.0-68.0) 01/16/18 06:00 Lymph % (Auto) 29.0 % (22.0-35.0) 01/16/18 06:00 [place] % (Auto) 11.2 % (1.0-6.0) H 01/16/18 06:00 Eos % (Auto) 2.5 % (1.5-5.0) 01/16/18 06:00 Baso % (Auto) 0.2 % (0.0-3.0) 01/16/18 06:00 Gran # 6.11 (1.4-6.5) 01/16/18 06:00 Lymph # (Auto) 3.1 (1.2-3.4) 01/16/18 06:00 [place] # (Auto) 1.2 (0.1-0.6) H 01/16/18 06:00 Eos # (Auto) 0.3 (0.0-0.7) 01/16/18 06:00 Baso # (Auto) 0.02 K/mm3 (0.0-2.0) 01/16/18 06:00 PT 12.5 SECONDS (9.4-12.5) 01/12/18 16:34 INR 1.09 (0.93-1.08) H 01/12/18 16:34 APTT 28.0 Seconds (25.1-36.5) 01/12/18 16:34 pO2 32 mm/Hg (30-55) 01/12/18 16:34 VBG pH 7.37 (7.32-7.43) 01/12/18 16:34 VBG pCO2 59.0 (40-60) 01/12/18 16:34 VBG HCO3 34.1 mmol/l (21-28) H 01/12/18 16:34 VBG Total CO2 35.9 mmol.L (22-28) H 01/12/18 16:34 VBG O2 Sat (Calc) 66.1 % (40-65) H 01/12/18 16:34 VBG Base Excess 6.9 mmol/L (0.0-2.0) H 01/12/18 16:34 VBG Potassium 3.5 mmol/L (3.6-5.2) L 01/12/18 16:34 Sodium 139.0 mmol/L (132-148) 01/12/18 16:34 Chloride 104.0 mmol/L (98-107) 01/12/18 16:34 Glucose 91 mg/dl (65-105) 01/12/18 16:34 Lactate 0.8 mmol/L (0.7-2.1) 01/12/18 16:34 FiO2 21.0 % 01/12/18 16:34 Sodium 143 mmol/L (132-148) 01/16/18 06:00 Potassium 3.5 mmol/L (3.6-5.0) L 01/16/18 06:00 Chloride 103 mmol/L (98-107) 01/16/18 06:00 Carbon Dioxide 30 mmol/L (21-33) 01/16/18 06:00 Anion Gap 13 (10-20) 01/16/18 06:00 BUN 19 mg/dL (7-21) 01/16/18 06:00 Creatinine 0.7 mg/dl (0.7-1.2) 01/16/18 06:00 Est GFR ( Amer) > 60 01/16/18 06:00 Est GFR (Non-Af Amer) > 60 01/16/18 06:00 Random Glucose 106 mg/dL (70-110) 01/16/18 06:00 Calcium 9.2 mg/dL (8.4-10.5) 01/16/18 06:00 Total Bilirubin 0.9 mg/dL (0.2-1.3) 01/16/18 06:00 AST 24 U/L (14-36) 01/16/18 06:00 ALT 31 U/L (7-56) 01/16/18 06:00 Alkaline Phosphatase 92 U/L (38-126) 01/16/18 06:00 Total Creatine Kinase 46 U/L (35-230) 01/12/18 16:34 Troponin I < 0.01 ng/mL 01/12/18 16:34 Total Protein 6.4 g/dL (5.8-8.3) 01/16/18 06:00 Albumin 3.6 g/dL (3.0-4.8) 01/16/18 06:00 Globulin 2.8 gm/dL 01/16/18 06:00 Albumin/Globulin Ratio 1.3 (1.1-1.8) 01/16/18 06:00 Lipase 110 U/L (23-300) 01/12/18 16:34 Venous Blood Potassium 3.5 mmol/L (3.6-5.2) L 01/12/18 16:34 Urine Color Light yellow (YELLOW) 01/13/18 18:32 Urine Appearance Clear (CLEAR) 01/13/18 18:32 Urine pH 6.5 (4.7-8.0) 01/13/18 18:32 Ur Specific [place] 1.015 (1.005-1.035) 01/13/18 18:32 Urine Protein Negative mg/dL (<30 mg/dL) 01/13/18 18:32 Urine Glucose (UA) Negative mg/dL (NEGATIVE) 01/13/18 18:32 Urine Ketones Negative mg/dL (NEGATIVE) 01/13/18 18:32 Urine Blood Small (NEGATIVE) H 01/13/18 18:32 Urine Nitrate Negative (NEGATIVE) 01/13/18 18:32 Urine Bilirubin Negative (NEGATIVE) 01/13/18 18:32 Urine Urobilinogen 0.2 E.U./dL (<1 E.U./dL) 01/13/18 18:32 Ur Leukocyte Esterase Negative Taylor/uL (NEGATIVE) 01/13/18 18:32 Urine RBC 0 - 2 /hpf (0-2) 01/13/18 18:32 Urine WBC 0 - 2 /hpf (0-6) 01/13/18 18:32 Ur Epithelial Cells 0 - 2 /hpf (0-5) 01/13/18 18:32 Urine Bacteria Neg (NEG) 01/13/18 18:32 Attending/Attestation - Attestation I have personally seen and examined this patient.: Yes I have fully participated in the care of the patient.: Yes I have reviewed all pertinent clinical information, including history, physical exam and plan: Yes Notes (Text): 01/17/18 13:44 attending note; Patient seen and examined with resident. Patient is a 87 year old female with past medical history of CVA, CAD, hypertension, and Bailon's palsy who presented with leg pain and gait instability s/p mechanical fall 2 days prior to admission. X rays were negative for fracture. CT head showed cystic lesion which was followed up with MRI brain which showed cystic/solid lesion consistent with schwannoma. Patient reports this was diagnosed many years ago and she received treatment before. Neurosurgery evaluation was appreciated; recommended radiation therapy for stereotactic radiosurgery. MRi of the thoracic spine and lumbar spine did not show any fracture oe lesion. case discussed with radiation oncologist Dr. Cohen in detail. Patient was [facility] to [facility] at [place]. Continue with home medications for CAD and hypertension. HCTZ was increased yesterday and BP has improved. Miralax is added for constipation. PT evaluation was appreciated who recommended [facility]. Case discussed with cyanide case hardener in detail. discharge rehabilitation today. Discharge instruction given to the patient and family.
== END 2018-01-16 19:46 | DRG 556 ==
LOC: ED 14:21 → ERH 19:18 → 3RSO 20:37 → 3RNO 01-14 22:19
PROVIDERS: ADMIT Internal Medicine; ATTEND Internal Medicine
DX: R26.2 Difficulty in walking, not elsewhere classified (principal); M79.605 Pain in left leg; G51.0 Bell's palsy; D33.3 Benign neoplasm of cranial nerves; I25.10 Atherosclerotic heart disease of native coronary artery without angina pectoris; I12.9 Hypertensive chronic kidney disease with stage 1 through stage 4 chronic kidney disease, or unspecified chronic kidney disease; N18.9 Chronic kidney disease, unspecified; E87.6 Hypokalemia; E78.5 Hyperlipidemia, unspecified; K59.00 Constipation, unspecified; R53.1 Weakness; S09.90XA Unspecified injury of head, initial encounter; W18.30XA Fall on same level, unspecified, initial encounter; I25.2 Old myocardial infarction; Z95.5 Presence of coronary angioplasty implant and graft; Z86.73 Personal history of transient ischemic attack (TIA), and cerebral infarction without residual deficits

== ENCOUNTER 2019-01-04 08:53 | Outpatient (CLI) | payer MEDICARE | END 2019-01-04 08:54 | disposition home or self-care (01) | LOC: RAD 08:53 ==